=== PATIENT | female | born 1965 | race Caucasian/White ===

== ENCOUNTER → 2017-02-11 | Outpatient (CLI) | payer BC ==
--- NOTE | 2017-02-12 07:53 | MM ---
Reason for exam: follow-up at short interval from prior study. Last mammogram was performed 8 months ago. History: Patient is nulliparous. Family history of breast cancer in maternal aunt. Excisional biopsy of the right breast, September 20, 2007. Physical Findings: A clinical breast exam by your physician is recommended on an annual basis and results should be correlated with mammographic findings. MG 3D Diag Mammo W/Cad RT CC, MLO, ML, and spot compression MLO view(s) were taken of the right breast. Prior study comparison: June 04, 2016, bilateral MG 3d screening mammo w/cad. November 14, 2013, bilateral digital screening mammo w/CAD. The breast tissue is heterogeneously dense. This may lower the sensitivity of mammography. There is no discrete abnormality including area of concern. No significant new findings when compared with previous films. These results were verbally communicated with the patient and result sheet given to the patient on 02/11/17. ASSESSMENT: Benign, BI-RAD 2 RECOMMENDATION: Return to routine screening mammogram schedule for both breasts. Back on schedule.
== END | disposition home or self-care (01) ==
LOC: RADMAMWWP 14:54
PROVIDERS: ATTEND Family Medicine
DX: R92.8 Other abnormal and inconclusive findings on diagnostic imaging of breast (principal)
CPT/HCPCS: G0206; G0279

== ENCOUNTER 2017-11-26 09:59 | Day surgery (SDC) | payer BC ==
[2017-11-24 13:56] VITALS: BMI 38.9
[~2017-11-26 09:59] MED LIST: LACTATED RINGERS 1,000 ML IV ONE; LIDOCAINE 1% 20 ML VIAL (10MG/ML) FOR IV START INTRADERMA PRN
[2017-11-26 10:30] VITALS: RESP 16; TEMP 98.5
[2017-11-26] MEDS ORDERED: PROPOFOL 10 MG/ML 20 ML VIAL IV ONE (11:14)
--- NOTE | 2017-11-26 11:29 | P.PCN ---
Date of Procedure: 11/26/17 Procedure(s) Performed: BRIEF HISTORY: Patient is a 52-year-old pleasant white female, scheduled for an elective colonoscopy as a part of screening for colon cancer. She has family history of colon cancer diagnosed in her mother. Her last colonoscopy was 5 years ago that was normal. PROCEDURE PERFORMED: Colonoscopy. PREOPERATIVE DIAGNOSIS: Screening for colon cancer and family history of colon cancer. IV sedation per Anesthesia. PROCEDURE: After informed consent was obtained, the patient, was brought into the endoscopy unit. IV sedation was administered by Anesthesia under continuous monitoring. Digital rectal examination was normal. Initially the Olympus CF- 160 flexible video colonoscope was then inserted in the rectum, gradually advanced into the cecum without any difficulty. Careful examination was performed as the scope was gradually being withdrawn. Ileocecal valve and the appendiceal orifice were visualized and appeared normal. Prep was excellent. Mucosa of the cecum, ascending colon, transverse colon, descending colon, sigmoid colon, and rectum appeared normal. Retroflexion was performed in the rectum and no lesions were seen. Scattered sigmoidal reticular seen. The patient tolerated the procedure well. IMPRESSION: Normal-appearing colon from rectum to cecum with no evidence of colorectal neoplasia. Scattered sigmoidal diverticulosis. RECOMMENDATIONS: Findings of this examination were discussed with the patient as well as a family. She was advised to have a repeat screening colonoscopy in 5 years because of the family history of colon cancer.
[2017-11-26 11:54] VITALS: BP 119/70; PULSE 63
== END 2017-11-26 12:11 | disposition home or self-care (01) ==
LOC: ORWHC2ENDO 09:59
PROVIDERS: ATTEND Internal Medicine Gastroenterology
DX: Z12.11 Encounter for screening for malignant neoplasm of colon (principal); Z80.0 Family history of malignant neoplasm of digestive organs; K57.30 Diverticulosis of large intestine without perforation or abscess without bleeding; Z88.5 Allergy status to narcotic agent; Z88.8 Allergy status to other drugs, medicaments and biological substances; J44.9 Chronic obstructive pulmonary disease, unspecified; F39 Unspecified mood [affective] disorder; Z79.51 Long term (current) use of inhaled steroids; Z79.1 Long term (current) use of non-steroidal anti-inflammatories (NSAID); Z79.899 Other long term (current) drug therapy; Z87.891 Personal history of nicotine dependence; Z79.2 Long term (current) use of antibiotics
CPT/HCPCS: 45378; J2704

== ENCOUNTER → 2018-03-29 | Outpatient (CLI) | payer BC ==
[2018-03-29 09:27] VITALS: BP 139/82; PULSE 62; TEMP 97.1; BMI 37.5
--- NOTE | 2018-03-29 10:11 | P.HPOB ---
History of Present Illness H&P Date: 03/29/18 Chief Complaint: The patient is here for her routine gynecologic exam and mammogram. This is a 53-year-old G0 with an LMP of 2016. The patient is here to establish with this office. She is without gynecologic complaints. Her last pelvic exam was about 3 years ago. She denies any postmenopausal bleeding. Review of Systems Her weight has fluctuated over the past year. She had gained about 25 pounds after she was using steroids for her asthma. More recently she has lost about 18 pounds. She denies respiratory, cardiac, or G.I. problems. Past Medical History Past Medical History: Asthma Additional Past Medical History / Comment(s): MIGRAINES, OCCASIONAL SVT- STATES HX OF 2ND DEGREE HEART BLOCK WHEN HER BLOOD PRESSURE GOES LOW. , RECENT USE OF PREDNISONE FOR ASTHMA. 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 She has no history of STDs. History of Any Multi-Drug Resistant Organisms: None Reported Past Surgical History: Breast Surgery (To write breast biopsies.), Cholecystectomy, Heart Catheterization, Orthopedic Surgery (Left wrist), Tonsillectomy Additional Past Surgical History / Comment(s): LEFT OVARY & TUBE REMOVED 2000. Multiple laparoscopy is for endometriosis, HEART CATH (2013). Colonoscopy 2018 (). Past Anesthesia/Blood Transfusion Reactions: Postoperative Nausea & Vomiting ( PONV) Additional Past Anesthesia/Blood Transfusion Reaction / Comment(s): STATES NAUSEA WITH DILAUDID. STATES HX OF SVT AND 2ND DEGREE HEART BLOCK WHEN BP DROPS LOW. Past Psychological History: Anxiety, Depression Smoking Status: Former smoker (Quit 2012) Past Alcohol Use History: Rare Additional Past Alcohol Use History / Comment(s): QUIT SMOKING MARCH 2013. SMOKED 1-1 1/2 PPD FOR 25-30 YEARS. Past Drug Use History: None Reported Additional History: She is and is not seeing anybody at this time. 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 - Past Family History Mother Family Medical History: Cancer Additional Family Medical History / Comment(s): OF COLON RECTAL CANCER. 2 maternal aunts had breast cancer. Both grandmothers had an [place]. Father Family Medical History: Cancer, Congestive Heart Failure (CHF), COPD Additional Family Medical History / Comment(s): SKIN CANCER Brother(s) Family Medical History: Cancer Additional Family Medical History / Comment(s): TUMOR AROUND JUGULAR WITH METS. Another brother had an [place]. Medications and Allergies Home Medications Medication Instructions Recorded Confirmed Type Cetirizine HCl [Zyrtec] 10 mg PO DAILY 10/17/17 03/29/18 History FLUoxetine HCL [PROzac] 20 mg PO HS 10/17/17 03/29/18 History Fluticasone Nasal [place] [Flonase 1 - 2 spr EA NOSTRIL DAILY 10/17/17 03/29/18 History Nasal [place]] Magnesium Oxide [Mag-Ox] 500 mg PO DAILY 10/17/17 03/29/18 History Mometasone/Formoterol [Dulera 100 2 puff INHALATION BID 10/17/17 03/29/18 History Mcg/5 Mcg Inhaler] Montelukast Sodium [Singulair] 10 mg PO HS 10/17/17 03/29/18 History Triamterene-Hctz 37.5-25Mg 1 cap PO DAILY PRN 10/17/17 03/29/18 History [Dyazide 37.5-25 Capsule] Albuterol Sulfate [Proair Hfa] 1 - 2 puff INHALATION Q6HR PRN 11/24/17 03/29/18 History Ibuprofen [Motrin Ib] 400 mg PO DAILY PRN 11/24/17 03/29/18 History Minocycline [Minocin] 50 mg PO DAILY 11/24/17 03/29/18 History Allergies Allergy/AdvReac Type Severity Reaction Status Date / Time hydromorphone [From Dilaudid] Allergy Nausea & Verified 03/29/18 09:23 Vomiting loratadine [From Claritin] AdvReac Unknown Verified 03/29/18 09:23 Exam Vital Signs Temp Pulse BP 03/29/18 09:23 97.1 F L 62 139/82 Intake and Output 03/28/18 03/29/18 03/29/18 22:59 06:59 14:59 Other: Weight 108.862 kg Height 5'7", BMI 37.6. This is a well-developed well-nourished heavyset white female who is alert and oriented times 3 in no acute distress. HEENT: Within normal limits. NECK: Supple without mass or thyromegaly. CHEST AND LUNGS: Clear to auscultation. HEART: Regular rate and rhythm. BREASTS: Are without mass or discharge. AXILLARY EXAM: Negative for adenopathy. BACK: Negative for CVA tenderness. ABDOMEN: Soft, mildly obese, nontender, without palpable masses. PELVIC EXAM: Normal external genitalia with minimal atrophy. Cervix and vagina appear normal with minimal atrophy. There is no unusual discharge. There is no evidence of prolapse. The uterus is midposition, nongravid size and nontender. There are no palpable adnexal masses or tenderness. RECTAL EXAM: refused by the patient. EXTREMITIES: Nontender. IMPRESSION: 1. 53-year-old menopausal female with normal gynecologic exam. 2. History of chronic steroid use for asthma. 3. Strong family history of colorectal cancer in her mother. PLAN: 1. Pap Smear was performed. 2. Self breast awareness was discussed. 3. Screening mammogram will be done today. 4. Osteoporosis prevention was discussed. Bone density screening will be done today. She is at increased risk for osteoporosis because of her chronic steroid use for asthma. 5. She will return in one year.
--- NOTE | 2018-03-29 13:02 | BD ---
EXAMINATION TYPE: Axial Bone Density DATE OF EXAM: 03/29/2018 COMPARISON: 2006 CLINICAL HISTORY: chronic steroid use Height: 5'6 Weight: 242 FRAX RISK QUESTIONS: Glucocorticoids (More than 3mos): y (Ex: prednisone, prednisolone, methylprednisolone, dexamethasone, and hydrocortisone). Secondary Osteoporosis: RISK FACTORS HISTORY OF: Family History of Osteoporosis: y Diet low in dairy products/other sources of calcium: y Postmenopausal woman: MEDICATIONS: Prednisone or other steroids: y How Long: intermittently 3 weeks Additional Medications: asthma, Flonase, Prozac Additional History: EXAM MEASUREMENTS: Bone mineral densitometry was performed using the [employer] System. Bone mineral density as measured about the Lumbar spine is: ----- L1-L4(G/cm2): 1.305 T Score Values are as follows: ----- L2: 1.1 ----- L3: 1.8 ----- L4: 0.6 ----- L1-L4: 1.0 Bone mineral density about the R hip (g/cm2): 1.103 Bone mineral density about the L hip (g/cm2): 1.087 T Score values are as follows: -----R Neck: 0.5 -----L Neck: 0.4 -----R Total: 1.0 -----L Total: 1.0 IMPRESSION: Normal (Values between +1 and -1 indicate normal bone mass). Consider repeating this study in 5 year s or sooner if there is some new clinical indication. NOTE: T-SCORE=SD OF THE YOUNG ADULT MEAN.
--- NOTE | 2018-03-30 13:40 | MM ---
Reason for exam: screening (asymptomatic). Last mammogram was performed 1 year and 2 months ago. History: Patient is postmenopausal and is nulliparous. Family history of breast cancer in maternal aunt. Excisional biopsy of the right breast, September 20, 2007. Physical Findings: A clinical breast exam by your physician is recommended on an annual basis and results should be correlated with mammographic findings. MG 3D Screening Mammo W/Cad Bilateral CC and MLO view(s) were taken. Prior study comparison: February 11, 2017, right breast MG 3d diag mammo w/cad RT. June 04, 2016, bilateral MG 3d screening mammo w/cad. The breast tissue is heterogeneously dense. This may lower the sensitivity of mammography. Finding: There is a 24 mm lobulated mass in the slight inner quadrant, middle, central position of the left breast, CC 37/80 and MLO 49/85. New finding since February 11, 2017 and June 04, 2016. ASSESSMENT: Incomplete: need additional imaging evaluation, BI-RAD 0 RECOMMENDATION: Ultrasound of the left breast. [facility] will attempt to contact patient to return for ultrasound.
== END | disposition home or self-care (01) ==
LOC: WWCWWP 09:06
PROVIDERS: ATTEND Obstetrics & Gynecology
DX: Z12.31 Encounter for screening mammogram for malignant neoplasm of breast (principal); Z79.52 Long term (current) use of systemic steroids; Z78.0 Asymptomatic menopausal state; N95.1 Menopausal and female climacteric states
CPT/HCPCS: 77063; 77067; 77080

== ENCOUNTER → 2018-04-04 | Outpatient (CLI) | payer BC ==
--- NOTE | 2018-04-04 11:27 | USB ---
Reason for exam: additional evaluation requested from abnormal screening. History: Patient is postmenopausal and is nulliparous. Family history of breast cancer in maternal aunt. Excisional biopsy of the right breast, September 20, 2007. Physical Findings: Nurse did not find any significant physical abnormalities on exam. US Breast Workup Limited LT Right limited breast ultrasound including focal area of concern, retroareolar and axilla demonstrates a 1.6 x 0.6 x 1.6cm oval, cystic lesion at 10 o'clock. This likely corresponds to the mammographic finding but because it measures smaller than the area on mammogram and appears more centrally located on ultrasound, 6 month follow up mammogram recommended. These results were verbally communicated with the patient and result sheet given to the patient on 04/04/18. ASSESSMENT: Probably benign, BI-RAD 3 RECOMMENDATION: Follow-up diagnostic mammogram of the left breast in 6 months.
== END | disposition home or self-care (01) ==
LOC: RADUSWWP 10:27
PROVIDERS: ATTEND Obstetrics & Gynecology
DX: R92.8 Other abnormal and inconclusive findings on diagnostic imaging of breast (principal)

== ENCOUNTER → 2019-08-02 | Outpatient (CLI) | payer BC ==
--- NOTE | 2019-08-03 08:49 | CT ---
EXAMINATION TYPE: CT abdomen pelvis wo con DATE OF EXAM: 08/02/2019 HISTORY: Left flank pain radiating to left lower quadrant x [address] DLP: 1295.9 mGycm. Automated Exposure Control for Dose Reduction was Utilized. TECHNIQUE: CT scan of the abdomen and pelvis is performed without oral or IV contrast. COMPARISON: CT abdomen and pelvis January 08, 2013. FINDINGS: Within the limitations of a non-contrast study, the following observations are made. LUNG BASES: Persistent patchy bibasilar linear scarring and/or atelectasis. LIVER/GB: Cholecystectomy clips are redemonstrated. PANCREAS: No significant abnormality is seen. SPLEEN: There is splenule anterior splenic hilum axial image 40 redemonstrated. ADRENALS: No significant abnormality is seen. KIDNEYS: No renal calculi or hydronephrosis is seen bilaterally. BOWEL: Debris-filled stomach suggests recent meal ingestion. No suspicious small or large bowel dilat ation. Normal-appearing appendix from the cecum. Scattered diverticula throughout the transverse left and sigmoid colon. No CT evidence for acute diverticulitis. GENITAL ORGANS: Anteverted uterus. LYMPH NODES: No greater than 1cm abdominal or pelvic lymph nodes are appreciated. OSSEOUS STRUCTURES: Facet arthropathy lower lumbar levels. OTHER: No significant additional abnormality is seen. IMPRESSION: No renal stones or hydronephrosis is seen bilaterally. No bowel obstruction. Redemonstrat ion of colonic diverticula without convincing CT evidence for acute diverticulitis currently. No susp icious new or acute findings are evident.
== END | disposition home or self-care (01) ==
LOC: RADCTMAIN 15:50
PROVIDERS: ATTEND Family Medicine
DX: K57.30 Diverticulosis of large intestine without perforation or abscess without bleeding (principal)
CPT/HCPCS: 74176

== ENCOUNTER 2019-09-17 15:53 | Emergency (ER) | payer BC ==
--- NOTE | 2019-09-17 16:24 | ED ---
General Adult HPI - General Chief complaint: Upper Respiratory Infection Stated complaint: TIFFANY Time Seen by Provider: 09/17/19 15:58 Source: patient Mode of arrival: wheelchair Limitations: no limitations - History of Present Illness Initial comments: Patient presents the ED with her for evaluation. Patient states that she has had a productive cough and dyspnea for the past 2 days. Patient also admits to having chest and back pain, which she attributes to her coughing. Patient states that she was started on a course of azithromycin by her PCP 2 days ago, and she states that she was also provided with a prescription for an inhaler at that time. Patient also states that she has been using her nebulizer machine at home without much relief. Patient denies trauma or injury, fever or chills, headache, sore throat, neck/arm/jaw pain, hemoptysis, palpitations, dizziness, nausea/vomiting/diaphoresis, abdominal pain, urinary symptoms, leg or calf swelling or pain, or any other symptoms or complaints. - Related Data Home Medications Medication Instructions Recorded Confirmed Cetirizine HCl [Zyrtec] 10 mg PO DAILY 10/17/17 03/29/18 FLUoxetine HCL [PROzac] 20 mg PO HS 10/17/17 03/29/18 Fluticasone Nasal [place] [Flonase 1 - 2 spr EA NOSTRIL DAILY 10/17/17 03/29/18 Nasal [place]] Magnesium Oxide [Mag-Ox] 500 mg PO DAILY 10/17/17 03/29/18 Mometasone/Formoterol [Dulera 100 2 puff INHALATION BID 10/17/17 03/29/18 Mcg/5 Mcg Inhaler] Montelukast Sodium [Singulair] 10 mg PO HS 10/17/17 03/29/18 Triamterene-Hctz 37.5-25Mg 1 cap PO DAILY PRN 10/17/17 03/29/18 [Dyazide 37.5-25 Capsule] Albuterol Sulfate [Proair Hfa] 1 - 2 puff INHALATION Q6HR PRN 11/24/17 03/29/18 Ibuprofen [Motrin Ib] 400 mg PO DAILY PRN 11/24/17 03/29/18 Minocycline [Minocin] 50 mg PO DAILY 11/24/17 03/29/18 Previous Rx's Medication Instructions Recorded predniSONE 60 mg PO DAILY #5 tab 09/17/19 Allergies Allergy/AdvReac Type Severity Reaction Status Date / Time hydromorphone [From Dilaudid] Allergy Nausea & Verified 03/29/18 09:23 Vomiting loratadine [From Claritin] AdvReac Unknown Verified 03/29/18 09:23 Review of Systems ROS Statement: Those systems with pertinent positive or pertinent negative responses have been documented in the HPI. ROS Other: All systems not noted in ROS Statement are negative. Past Medical History Past Medical History: Asthma Additional Past Medical History / Comment(s): MIGRAINES, OCCASIONAL SVT- STATES HX OF 2ND DEGREE HEART BLOCK WHEN HER BLOOD PRESSURE GOES LOW, RECENT USE OF PREDNISONE FOR ASTHMA. 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 She has no history of STDs. History of Any Multi-Drug Resistant Organisms: None Reported Past Surgical History: Breast Surgery, Cholecystectomy, Heart Catheterization, Orthopedic Surgery, Tonsillectomy Additional Past Surgical History / Comment(s): LEFT OVARY & TUBE REMOVED 2000. Multiple laparoscopy is for endometriosis, HEART CATH (2013). Colonoscopy 2018 (2nd). Past Anesthesia/Blood Transfusion Reactions: Postoperative Nausea & Vomiting (PONV) Additional Past Anesthesia/Blood Transfusion Reaction / Comment(s): STATES NAUSEA WITH DILAUDID. STATES HX OF SVT AND 2ND DEGREE HEART BLOCK WHEN BP DROPS LOW. Past Psychological History: Anxiety, Depression Smoking Status: Former smoker Past Alcohol Use History: Rare Past Drug Use History: None Reported - Past Family History Mother Family Medical History: Cancer Additional Family Medical History / Comment(s): OF COLON RECTAL CANCER. 2 maternal aunts had breast cancer. Both grandmothers had an [place]. Father Family Medical History: Cancer, Congestive Heart Failure (CHF), COPD Additional Family Medical History / Comment(s): SKIN CANCER Brother(s) Family Medical History: Cancer Additional Family Medical History / Comment(s): TUMOR AROUND JUGULAR WITH METS. Another brother had an [place]. General Exam Limitations: no limitations General appearance: alert, in no apparent distress Head exam: Present: atraumatic, normocephalic Eye exam: Present: normal appearance, EOMI ENT exam: Present: normal oropharynx, mucous membranes moist Neck exam: Present: other (Trachea is in midline). Absent: tenderness, meningismus Respiratory exam: Present: normal lung sounds bilaterally, wheezes. Absent: respiratory distress, rales, rhonchi, stridor Cardiovascular Exam: Present: regular rate, normal rhythm, normal heart sounds, other (Normal radial pulses bilaterally) GI/Abdominal exam: Present: soft. Absent: tenderness, guarding Extremities exam: Present: other (Negative Jun's sign bilaterally). Absent: tenderness, pedal edema, calf tenderness Neurological exam: Present: alert, oriented X3, CN II-XII intact. Absent: motor sensory deficit Psychiatric exam: Present: normal affect, normal mood Skin exam: Present: warm, dry, intact, normal color Course Vital Signs 09/17/19 09/17/19 09/17/19 15:56 16:21 16:59 Temperature 100.7 F H Pulse Rate 89 75 Respiratory 24 20 Rate Blood Pressure 142/103 O2 Sat by Pulse 97 Oximetry 09/17/19 17:05 Temperature Pulse Rate 81 Respiratory Rate Blood Pressure O2 Sat by Pulse Oximetry - Reevaluation(s) Reevaluation #1: 09/17/19 18:39 Patient states that her dyspnea has improved with ED treatment, and she denies development of any new symptoms while in the ED. Patient's wheezing has improved on exam. Patient remains alert and breathing comfortably with a normal room air oxygen saturation. Patient and are aware of the patient's test results, and patient feels comfortable going home with her at this time. EKG Findings - EKG Comments: EKG Findings:: Normal sinus rhythm, ventricular rate of 87 bpm, no ectopy, normal VT and QRS intervals, normal QT interval, normal axis, no ST or T-wave abnormality, left anterior fascicular block Medical Decision Making - Medical Decision Making I suspect that the patient's symptoms are likely secondary to mild pneumonia and asthma exacerbation. Patient is currently on a course of azithromycin, which I feel is appropriate treatment for community acquired pneumonia. She was instructed to complete the course of azithromycin that she is currently taking as prescribed. Patient was also provided with a prescription for a short course of prednisone. Patient was instructed to continue using her nebulizer machine at home as needed/as prescribed. Patient was counseled about pneumonia and asthma, and she was clearly explained return and follow-up instructions. She was instructed to return to the ED should she develop new or worsening symptoms. She was instructed to follow up closely with her primary care provider. She feels comfortable with this plan. - Lab Data Lab Results 09/17/19 Range/Units 16:17 Influenza Type A RNA Not Detected (Not Detectd) Influenza Type B (PCR) Not Detected (Not Detectd) - Radiology Data Radiology results: image reviewed (Chest x-ray shows a subtle left lingular infiltrate) Disposition Clinical Impression: Pneumonia, Asthma Disposition: HOME SELF-CARE Condition: Stable Instructions (If sedation given, give patient instructions): Asthma (ED), Pneumonia (ED) Additional Instructions: Return to the ER immediately should you develop new or worsening pain, increased shortness of breath, a high fever, vomiting, feeling dizzy or faint, or new or worsening symptoms. Follow up closely with your primary care provider. Prescriptions: predniSONE 60 mg PO DAILY #5 tab Is patient prescribed a controlled substance at d/c from ED?: No Referrals: Brittany Nieves DO [Primary Care Provider] - 1-2 days Time of Disposition: 18:41
[2019-09-17] MEDS ORDERED: IPRATROPIUM-ALBUTEROL 3 ML NEB INHALATION STA (16:37)
[2019-09-17] MEDS ORDERED: predniSONE 20 MG TAB PO STA (16:37)
--- NOTE | 2019-09-17 17:02 | XR ---
EXAMINATION TYPE: XR chest 2V DATE OF EXAM: 09/17/2019 COMPARISON: 10/17/2017 INDICATION: Cough with right-sided chest pain TECHNIQUE: Frontal and lateral views of the chest are obtained. FINDINGS: The heart size is normal. The pulmonary vasculature is normal. There is consolidation at the lingula. Correlate for atelectasis and pneumonia.. IMPRESSION: 1. Lingular infiltrate. Correlate for atelectasis and pneumonia.
[2019-09-17] MEDS ORDERED: ACETAMINOPHEN TAB 325 MG TAB PO STA (17:21)
[2019-09-17 19:02] VITALS: BP 142/89; PULSE 86; RESP 18; TEMP 98.9
== END 2019-09-17 19:01 | disposition home or self-care (01) ==
LOC: EC 15:53
DX: J45.909 Unspecified asthma, uncomplicated (principal); J18.9 Pneumonia, unspecified organism; F32.9 Major depressive disorder, single episode, unspecified; F41.9 Anxiety disorder, unspecified; Z87.891 Personal history of nicotine dependence; Z88.5 Allergy status to narcotic agent; Z88.8 Allergy status to other drugs, medicaments and biological substances; Z79.51 Long term (current) use of inhaled steroids; Z79.899 Other long term (current) drug therapy; Z90.89 Acquired absence of other organs; Z82.5 Family history of asthma and other chronic lower respiratory diseases
CPT/HCPCS: 94640; 93005; 87502; 71046; 99285; J7512

== ENCOUNTER 2020-07-03 12:26 | Day surgery (SDC) | payer BC ==
[2020-07-03 13:09] VITALS: RESP 16; TEMP 98.2
[2020-07-03] MEDS ORDERED: ALPRAZolam 0.5 MG TAB PO STA (13:09)
[2020-07-03 14:31] VITALS: BP 120/72; PULSE 77
--- NOTE | 2020-07-03 15:17 | US ---
EXAMINATION TYPE: US FNA thyroid each add lesion, US FNA thyroid first lesion DATE OF EXAM: 07/03/2020 COMPARISON: Ultrasound thyroid from outside institution HISTORY: Thyroid nodules. Maximal barrier technique was utilized. After informed consent, skin overlying the right lower lobe dominant solid thyroid nodule was localized with ultrasound and the overlying skin prepped and draped . Ultrasound was utilized using sterile technique. Lidocaine was used for local anesthesia. Five pas ses with a 25-gauge needle were made into the nodule and aspirated specimen was submitted to cytology . Using similar technique the minute cystic lesion in the left lobe of thyroid gland sampled. Following the procedure hemostasis achieved. No immediate complication. The patient discharged in stable con dition. IMPRESSION: STATUS POST ULTRASOUND GUIDED FINE NEEDLE ASPIRATION OF 2 DISCRETE BILATERAL THYROID NODU LES, PATHOLOGY IS PENDING. THIS PROCEDURE WAS PERFORMED BY THE UNDERSIGNED.
== END 2020-07-03 14:44 | disposition home or self-care (01) ==
LOC: RADPROMAIN 12:26
PROVIDERS: ATTEND Otolaryngology
DX: E04.1 Nontoxic single thyroid nodule (principal); Z88.5 Allergy status to narcotic agent
CPT/HCPCS: 10005; 10006; 88173; 88305

== ENCOUNTER → 2020-07-03 | Outpatient (CLI) | payer BC ==
--- NOTE | 2020-07-03 15:57 | CT ---
EXAMINATION TYPE: CT soft tissue neck w con DATE OF EXAM: 07/03/2020 HISTORY: left side neck mass, known thyroid nodules. COMPARISON: NONE CT DLP: 530.1 mGycm. Automated Exposure Control for Dose Reduction was Utilized. TECHNIQUE: CT scan of the neck is performed with IV Contrast, patient injected with 100 mL of Isovue 300, axial images are obtained, coronal and sagittal reformatted images are reviewed. FINDINGS: Airway: Normal-sized thyroid with bilateral thyroid nodules. Ultrasound noted more sensitive to evalu ate the uterus, correlate clinically. Some retained secretions in the vallecula. Parotid/submandibular glands: Metallic BB noted near the level of left submandibular gland axial imag e 43. This appear symmetric and within normal limits. The right-sided gland. I see no concerning donna d or cystic mass or fluid collection at this level. There is tiny subcutaneous vessel coronal image 2 1 at this level presumed tiny draining external superficial vein. Carotid/Vascular Structures: No suspicious abnormality. Osseous Structures: Moderate disc space narrowing with endplate sclerosis and spurring C6-C7 level Other: No suspicious greater than 1 cm neck adenopathy. IMPRESSION: No suspicious mass or adenopathy.
== END | disposition home or self-care (01) ==
LOC: RADCTMAIN 12:21
PROVIDERS: ATTEND Otolaryngology
DX: E04.1 Nontoxic single thyroid nodule (principal); R22.1 Localized swelling, mass and lump, neck; Z88.5 Allergy status to narcotic agent
CPT/HCPCS: 70491; Q9967

== ENCOUNTER 2020-07-19 09:41 | Day surgery (SDC) | payer BC ==
[2020-07-18 12:14] VITALS: BMI 45.3
[2020-07-19 10:07] VITALS: RESP 16; TEMP 96
[2020-07-19] MEDS ORDERED: LACTATED RINGERS 1,000 ML IV ONE (10:16)
[2020-07-19] MEDS ORDERED: LIDOCAINE 1% (10MG/ML) FOR IV START INTRADERMA ONE (10:16)
[2020-07-19] MEDS ORDERED: LIDOCAINE 1% INJ 10MG/ML (20 ML MDV) ONE (10:40)
[2020-07-19] MEDS ORDERED: PROPOFOL 10 MG/ML 20 ML VIAL IV ONE (10:40)
--- NOTE | 2020-07-19 10:51 | P.PCN ---
Date of Procedure: 07/19/20 Procedure(s) Performed: BRIEF HISTORY: Patient is a 55-year-old, pleasant, 54-year-old white female scheduled for an upper endoscopy for evaluation of throat irritation and possible GERD.. PROCEDURE PERFORMED: Esophagogastroduodenoscopy with biopsy. PREOPERATIVE DIAGNOSIS: Throat irritation/positive. IV sedation per anesthesia. PROCEDURE: After informed consent was obtained, the patient was brought into the endoscopy unit. IV sedation was administered by Anesthesia under continuous monitoring. Initially the Olympus GIF-140 video endoscope was inserted into the mouth. Esophagus intubated without any difficulty. It was gradually advanced into the stomach and duodenum and carefully examined. The bulb and the second part of the duodenum appeared normal. The scope at this time was withdrawn to the stomach, adequately insufflated with air, and upon careful examination, mucosa of the antrum, had mild part of the mucosa consistent with gastritis and biopsies were done from this area. The body, cardia and the fundus appeared normal. The scope was then withdrawn into the esophagus. Small sliding type hiatal hernia noted. The GE junction was located at 39 cm from the incisors. There were linear erosions and one superficial ulceration at the GE junction consistent with LA grade C reflux esophagitis. Rest of esophagus appeared normal and the patient tolerated the procedure well. IMPRESSION: 1. Linear erosions and one superficial ulceration at the GE junction consistent with LA grade C reflux esophagitis. 2. Small hiatal hernia. 3. Mild antral gastritis RECOMMENDATIONS: The findings of this examination were discussed with the patient as well as a family. She was advised to follow with the biopsy results. She will continue with Prilosec 20 mg daily and follow antireflux measures..
[2020-07-19 11:47] VITALS: BP 138/78; PULSE 89
== END 2020-07-19 11:44 | disposition home or self-care (01) ==
LOC: ORWHC2ENDO 09:41
PROVIDERS: ATTEND Internal Medicine Gastroenterology
DX: K22.10 Ulcer of esophagus without bleeding (principal); K44.9 Diaphragmatic hernia without obstruction or gangrene; K29.50 Unspecified chronic gastritis without bleeding; I47.1 Supraventricular tachycardia; I45.9 Conduction disorder, unspecified; J45.909 Unspecified asthma, uncomplicated; E07.9 Disorder of thyroid, unspecified; Z88.5 Allergy status to narcotic agent; Z79.890 Hormone replacement therapy; Z79.899 Other long term (current) drug therapy; Z79.51 Long term (current) use of inhaled steroids
CPT/HCPCS: 88305; 43239; J2001; J2704

== ENCOUNTER → 2021-01-08 | Day surgery (SDC) | payer BC ==
[2021-01-07 13:20] VITALS: BMI 46.0
[~2021-01-08] MED LIST changes: +ALBUTEROL NEB (CONC) 2.5 MG/0.5 ML INHALATION ONE; -LIDOCAINE 1% 20 ML VIAL (10MG/ML) FOR IV START INTRADERMA PRN; +LIDOCAINE 1% INJ 10MG/ML (20 ML MDV) ONE; +LIDOCAINE 2% (PF) 20 MG/ML 5 ML VIAL INHALATION ONE; +LIDOCAINE VISCOUS 300 MG/15 ML CUP MUCOUS MEM ONE; +PROPOFOL 10 MG/ML 20 ML VIAL IV ONE; +SODIUM CHLORIDE 0.9% 1,000 ML IV SCH; +methylPREDNISolone SOD SUCCI 125 MG/2 ML VIAL IV ONE
[2021-01-08 12:09] VITALS: TEMP 97.8
[2021-01-08 12:38] LABS: ALT 17 U/L (4-34); AST 24 U/L (14-36); African American GFR (CKD) >90 (>60 ml/min/1.73 sqM); Albumin 4.1 g/dL (3.5-5.0); Alkaline Phosphatase 128 U/L (38-126); Anion Gap 8 mmol/L; Blood Urea Nitrogen 10 mg/dL (7-17); Calcium 9.6 mg/dL (8.4-10.2); Carbon Dioxide 24 mmol/L (22-30); Chloride 106 mmol/L (98-107); Glucose 94 mg/dL (74-99); Non-African American GFR(CKD) 84 (>60 ml/min/1.73 sqM); Potassium 4.5 mmol/L (3.5-5.1); Sodium 138 mmol/L (137-145); Total Bilirubin 0.3 mg/dL (0.2-1.3); Total Protein 7.1 g/dL (6.3-8.2)
[2021-01-08 12:41] LABS: WBC 6.5 k/uL (3.8-10.6)
[2021-01-08 12:42] LABS: Basophils # (A) 0.1 k/uL (0-0.2); Basophils % (A) 1 %; Eosinophils # (A) 0.2 k/uL (0-0.7); Eosinophils % (A) 4 %; HCT 44.3 % (34.0-46.0); HGB 14.1 gm/dL (11.4-16.0); Lymphocytes % (A) 30 %; MCH 27.1 pg (25.0-35.0); MCHC 31.8 g/dL (31.0-37.0); MCV 85.4 fL (80.0-100.0); Mean Platelet Volume 6.8; Monocytes # (A) 0.4 k/uL (0-1.0); Monocytes % (A) 6 %; Neutrophils # (A) 3.7 k/uL (1.3-7.7); Neutrophils % (A) 58 %; Platelet Count 385 k/uL (150-450); RDW 13.8 % (11.5-15.5)
--- NOTE | 2021-01-08 12:43 | P.PCN ---
Date of Procedure: 01/08/21 Preoperative Diagnosis: Dyspnea, wheezing (exhalation) Postoperative Diagnosis: 1 bronchomalacia 2 Diffuse mucosal inflammatory changes (bronchitis) 3 Normal upper airway examination and no evidence of anatomic obstruction Anesthesia: MAC Surgeon: Aaron Lawler Pathology: none sent Condition: other Disposition: same day Operative Findings: This procedure was done under total intravenous anesthesia. The patient was given IV propofol for sedation. After achieving adequate sedation, the flexible bronchoscope was introduced through the right nostril and was advanced into the upper airway. There was obvious dynamic obstruction of the upper airway consistent with possible obstructive sleep apnea. A chin lift was done and the airway was inspected. The posterior oropharynx, larynx, epiglottis, arytenoids and the vallecula was inspected. All of these upper airway structures were within normal limits. Vocal cords were symmetrical and in the midline and there was normal abduction and adduction. A total of 2 mL of 1% lidocaine was applied to the vocal cords and following that the bronchoscope was advanced into the upper trachea. Subglottic trachea was normal. Cricoid cartilage was normal. No evidence of any subglottic stenosis. Airway examination was done and inspection of the trachea was completed and the membranous trachea was dynamic. Nevertheless, it was not causing significant obstruction of the tracheal lumen with exhalation and coughing. Evidence of bronchomalacia was seen in the bilateral mainstem bronchi and the bronchus intermedius on the right. Examination of the right-sided lower right upper lobe bronchus, bronchus intermedius, right middle lobe bronchus and right lower lobe bronchus and the various segments and subsegments. The examination of the right upper lobe including the right upper lobe and right middle lobe and right lower lobe and the various 10 segments involved in the right lung. Then the bronchoscope was moved to the left and left mainstem bronchus was patent, left upper lobe bronchus was normal at lower lobe bronchus was normal. The various segments that were inspected were left upper lobe apical posterior and anterior segments, lingular segment and left lower lobe segments. All of these airways were patent and within normal limits. No major abnormalities was identified other than some bronchomalacia in addition to some mucosal irregularities and inflammatory changes consistent with bronchitis. No endobronchial tumors. No significant mucous inspissation or clubbing. Therapeutic airway suctioning. The bronchoscope was wedged into the lateral segment of the right middle lobe and the bronchioloalveolar lavage was done with a total of 100 mL of fluid was infused and 35 mL was suctioned back. After that was cloudy and foamy. After completing the bronchioloalveolar lavage, the bronchoscope was removed and the patient was transferred to recovery in stable condition Postoperative diagnosis: 1 bronchial asthma 2 upper airway wheeze (exhalational) without evidence of abnormalities within the vocal cords and the subglottic trachea. Trachea was patent. No evidence of tracheal bronchomalacia. Mild component of bronchomalacia. 3 diffuse mucosal inflammatory changes consistent with bronchitis, consider infectious bronchitis. Bronchioloalveolar lavage was done.
[2021-01-08 12:55] LABS: T4, Free (Free Thyroxine) 1.13 ng/dL (0.78-2.19)
[2021-01-08 13:18] VITALS: BP 113/77; PULSE 93; RESP 20
[2021-01-08 13:22] LABS: Cholesterol 205 mg/dL (<200); HDL Cholesterol 54 mg/dL (40-60); LDL Cholesterol,Calculated 127 mg/dL (0-99); Triglycerides 120 mg/dL (<150)
[2021-01-08 21:36] LABS: Hemoglobin A1C 5.1 % (4.0-6.0)
== END | disposition home or self-care (01) ==
LOC: ORWHC2ENDO 11:28
PROVIDERS: ATTEND Internal Medicine Critical Care Medicine
DX: J45.40 Moderate persistent asthma, uncomplicated (principal); J98.09 Other diseases of bronchus, not elsewhere classified; J45.909 Unspecified asthma, uncomplicated; R06.2 Wheezing; E66.01 Morbid (severe) obesity due to excess calories; Z68.42 Body mass index [BMI] 45.0-49.9, adult; G47.10 Hypersomnia, unspecified; E04.1 Nontoxic single thyroid nodule; Z88.5 Allergy status to narcotic agent; Z79.51 Long term (current) use of inhaled steroids; Z79.899 Other long term (current) drug therapy; Z87.01 Personal history of pneumonia (recurrent); F32.9 Major depressive disorder, single episode, unspecified; Z87.19 Personal history of other diseases of the digestive system; Z80.0 Family history of malignant neoplasm of digestive organs; Z80.8 Family history of malignant neoplasm of other organs or systems; Z83.6 Family history of other diseases of the respiratory system; Z82.49 Family history of ischemic heart disease and other diseases of the circulatory system; Z87.891 Personal history of nicotine dependence; Z90.49 Acquired absence of other specified parts of digestive tract; Z98.890 Other specified postprocedural states; Z91.09 Other allergy status, other than to drugs and biological substances; E07.9 Disorder of thyroid, unspecified
CPT/HCPCS: 84439; 80061; 80053; 84443; 85025; 87252; 87070; 87205; 87116; 87102; 87206; 83036; 31624; J2930; J2001; J2704

== ENCOUNTER 2021-05-05 13:52 | Emergency (ER) | payer BC ==
[2021-05-05 14:28] VITALS: TEMP 98.4
[2021-05-05] MEDS ORDERED: MAGNESIUM SULFATE-D5W PMX 1 GM in DEXTROSE/WATER 1 100ML.BAG IVPB STA (16:53)
[2021-05-05] MEDS ORDERED: ALBUTEROL NEBULIZED 2.5 MG/3 ML INHALATION STA (16:53)
[2021-05-05] MEDS ORDERED: IPRATROPIUM-ALBUTEROL 3 ML NEB INHALATION STA (16:53)
[2021-05-05] MEDS ORDERED: methylPREDNISolone SOD SUCCI 125 MG/2 ML VIAL IV STA (16:55)
--- NOTE | 2021-05-05 17:22 | ED ---
SOB HPI - General Chief Complaint: Shortness of Breath Stated Complaint: SOB Source: patient Mode of arrival: ambulatory Limitations: no limitations - History of Present Illness Initial Comments: Patient is a 56-year-old female with past medical history of asthma, reflux, thyroid disorder who presents to the emergency department for failed outpatient treatment of pneumonia. Patient states that she has been seeing her primary care physician for some shortness of breath. She was placed on Decadron 6 mg daily and Augmentin. She finished the Decadron yesterday and Augmentin on Wednesday. States she has had no improvement in her short of breath and therefore saw her doctor today. They completed a chest x-ray which showed a right lower lobe pneumonia. They recommended that she come into the emergency department for further treatment. She has been giving her breathing treatments as directed. She states that she had a fever however her last fever was on Wednesday. She has not taken anything for fever control in the past several days. She denies any chest pain. No history of coronary disease. Patient does not wear oxygen at home. Sees Dr. Roy from pulmonology. She denies any abdominal pain. No nausea or vomiting. She did have a negative Covid test last week. She is vaccinated. No other alleviating, precipitating or modifying factors - Related Data Home Medications Medication Instructions Recorded Confirmed Cetirizine HCl [Zyrtec] 10 mg PO DAILY 10/17/17 05/05/21 FLUoxetine HCL [PROzac] 20 mg PO HS 10/17/17 05/05/21 Albuterol Sulfate [Proair Hfa] 2 puff INHALATION RT-Q6H PRN 11/24/17 05/05/21 Levothyroxine Sodium [Synthroid] 75 mcg PO DAILY 06/19/20 05/05/21 Budesonide/Formoterol Fumarate 2 puff INHALATION RT-BID 01/07/21 05/05/21 [Symbicort 160-4.5 Mcg Inhaler] Montelukast Sodium [Singulair] 10 mg PO HS 01/07/21 05/05/21 Fluticasone Nasal [place] [Flonase 2 spr EA NOSTRIL DAILY 05/05/21 05/05/21 Nasal [place]] Omeprazole 20 mg PO HS 05/05/21 05/05/21 Sea-Kelp 1 tab PO DAILY 05/05/21 05/05/21 Triamterene/Hydrochlorothiazid 1 cap PO DAILY PRN 05/05/21 05/05/21 [Dyazide 37.5-25 Capsule] Previous Rx's Medication Instructions Recorded Levofloxacin [Levaquin] 750 mg PO DAILY 1 Days #5 tab 05/05/21 predniSONE [Deltasone] 20 mg PO BID #10 tab 05/05/21 Allergies Allergy/AdvReac Type Severity Reaction Status Date / Time hydromorphone [From Dilaudid] Allergy Severe Verified 05/05/21 18:38 Vomiting adhesive tape AdvReac Itching, Verified 05/05/21 18:38 RED SKIN Review of Systems ROS Statement: Those systems with pertinent positive or pertinent negative responses have been documented in the HPI. ROS Other: All systems not noted in ROS Statement are negative. Past Medical History Past Medical History: Asthma, GERD/Reflux, Pneumonia, Thyroid Disorder Additional Past Medical History / Comment(s): states has had "choking feeling" recent diagnosed with benign thyroid nodules, NECK PAIN recent diagnosis of disintegrated T-1 with lesions, MIGRAINES, OCCASIONAL SVT- STATES HX OF 2ND DEGREE HEART BLOCK WHEN HER BLOOD PRESSURE GOES LOW. SHORTNESS OF BREATH WITH EXERTION , HIATAL HERNIA History of Any Multi-Drug Resistant Organisms: None Reported Past Surgical History: Breast Surgery, Cholecystectomy, Heart Catheterization, Orthopedic Surgery, Tonsillectomy Additional Past Surgical History / Comment(s): thyroid nodule bx, LEFT OVARY & TUBE REMOVED 2000. Multiple laparoscopy is for endometriosis, HEART CATH (2013). Colonoscopy . Left lower arm bone reduction surgery Past Anesthesia/Blood Transfusion Reactions: Previous Problems w/ Anesthesia Additional Past Anesthesia/Blood Transfusion Reaction / Comment(s): STATES severe vomiting WITH DILAUDID. STATES HX OF SVT AND 2ND DEGREE HEART BLOCK WHEN BP DROPS LOW. Past Psychological History: Depression Smoking Status: Former smoker Past Alcohol Use History: Rare Past Drug Use History: None Reported - Past Family History Mother Family Medical History: Cancer Additional Family Medical History / Comment(s): OF COLON RECTAL CANCER. 2 maternal aunts had breast cancer. Both grandmothers had an OR. Father Family Medical History: Cancer, Congestive Heart Failure (CHF), COPD Additional Family Medical History / Comment(s): SKIN CANCER Brother(s) Family Medical History: Cancer Additional Family Medical History / Comment(s): TUMOR AROUND JUGULAR WITH METS. Another brother had an OR. General Exam Limitations: no limitations General appearance: alert, in no apparent distress Head exam: Present: atraumatic, normocephalic, normal inspection Eye exam: Present: normal appearance, PERRL, EOMI. Absent: scleral icterus, conjunctival injection, periorbital swelling ENT exam: Present: normal exam, mucous membranes moist Neck exam: Present: normal inspection. Absent: tenderness, meningismus, lymphadenopathy Respiratory exam: Present: normal lung sounds bilaterally, other (tachpynia. upper airway stridor). Absent: respiratory distress, wheezes, rales, rhonchi, stridor Cardiovascular Exam: Present: regular rate, normal rhythm, normal heart sounds. Absent: systolic murmur, diastolic murmur, rubs, gallop, clicks GI/Abdominal exam: Present: soft, normal bowel sounds. Absent: distended, tenderness, guarding, rebound, rigid Extremities exam: Present: normal inspection, full ROM, normal capillary refill. Absent: tenderness, pedal edema, joint swelling, calf tenderness Back exam: Present: normal inspection Neurological exam: Present: alert, oriented X3, CN II-XII intact Psychiatric exam: Present: normal affect, normal mood Skin exam: Present: warm, dry, intact, normal color. Absent: rash Course Vital Signs 05/05/21 05/05/21 05/05/21 14:26 16:38 16:50 Temperature 98.4 F Pulse Rate 65 89 Respiratory 18 Rate Blood Pressure 141/94 O2 Sat by Pulse 97 79 L 99 Oximetry 05/05/21 05/05/21 05/05/21 16:57 19:19 19:32 Temperature Pulse Rate 88 66 68 Respiratory Rate Blood Pressure O2 Sat by Pulse 100 Oximetry 05/05/21 05/05/21 19:50 20:21 Temperature Pulse Rate 78 80 Respiratory 20 Rate Blood Pressure 151/81 O2 Sat by Pulse 94 L Oximetry Medical Decision Making - Medical Decision Making Upon arrival the patient is placed into room 33. She does have desaturation down to 79% with increased work of breathing upon entering the room. She is placed on a nonrebreather. When I see the patient she does have oxygen saturations of 100%. She does have some upper airway stridor however lungs maxx nd clear. We did obtain an IV. Laboratory studies are conducted. Patient was given a DuoNeb breathing treatment followed by an additional albuterol treatment. 1 g of magnesium was infused and the patient was given 125 mg Solu- Medrol. Laboratories studies are reviewed demonstrate a white blood cell count 17.4. Remainder of labs are within normal limits. Chest x-ray demonstrates no acute process at the time. I discussed results with the patient. I did recommend admission for hypoxia however the patient refused. She is saturating 96% and is comfortable at this time. Patient is requesting to go home and follow up with Dr. Roy in office. She is given strict return parameters. I will place her on 20 mg of prednisone twice daily. I will give her a prescription for Levaquin which she is to take if she has a fever however hold off otherwise at this time. Patient agreed to this treatment plan. States that she does have enough albuterol at home for treatments every 4 hours. Return to the emergency department for any new or worsening symptoms. Patient was discharged home in stable condition - Lab Data Result diagrams: 05/05/21 17:28 05/05/21 17:28 Lab Results 05/05/21 05/05/21 05/05/21 Range/Units 17:28 17:28 17:28 WBC 17.4 H (3.8-10.6) k/uL RBC 5.39 (3.80-5.40) m/uL Hgb 15.6 (11.4-16.0) gm/dL Hct 47.3 H (34.0-46.0) % MCV 87.7 (80.0-100.0) fL MCH 28.9 (25.0-35.0) pg MCHC 33.0 (31.0-37.0) g/dL RDW 14.1 (11.5-15.5) % Plt Count 456 H (150-450) k/uL MPV 7.1 Neutrophils % (Manual) 67 % Lymphocytes % (Manual) 28 % Monocytes % (Manual) 5 % Neutrophils # (Manual) 11.66 H (1.3-7.7) k/uL Lymphocytes # (Manual) 4.87 H (1.0-4.8) k/uL Monocytes # (Manual) 0.87 (0-1.0) k/uL Nucleated RBCs 0 (0-0) /100 WBC Manual Slide Review Performed PT 9.7 (9.0-12.0) sec INR 0.9 (<1.2) APTT 22.5 (22.0-30.0) sec Sodium 135 L (137-145) mmol/L Potassium 3.8 (3.5-5.1) mmol/L Chloride 103 (98-107) mmol/L Carbon Dioxide 22 (22-30) mmol/L Anion Gap 10 mmol/L BUN 21 H (7-17) mg/dL Creatinine 0.91 (0.52-1.04) mg/dL Est GFR (CKD-EPI)AfAm 83 (>60 ml/min/1.73 sqM) Est GFR (CKD-EPI)NonAf 72 (>60 ml/min/1.73 sqM) Glucose 100 H (74-99) mg/dL Plasma Lactic Acid Eddie (0.7-2.0) mmol/L Calcium 9.2 (8.4-10.2) mg/dL Total Bilirubin 0.2 (0.2-1.3) mg/dL AST 23 (14-36) U/L ALT 20 (4-34) U/L Alkaline Phosphatase 126 (38-126) U/L Troponin I (0.000-0.034) ng/mL NT-Pro-B Natriuret Pep pg/mL Total Protein 7.2 (6.3-8.2) g/dL Albumin 4.2 (3.5-5.0) g/dL 05/05/21 05/05/21 05/05/21 Range/Units 17:28 17:28 17:28 WBC (3.8-10.6) k/uL RBC (3.80-5.40) m/uL Hgb (11.4-16.0) gm/dL Hct (34.0-46.0) % MCV (80.0-100.0) fL MCH (25.0-35.0) pg MCHC (31.0-37.0) g/dL RDW (11.5-15.5) % Plt Count (150-450) k/uL MPV Neutrophils % (Manual) % Lymphocytes % (Manual) % Monocytes % (Manual) % Neutrophils # (Manual) (1.3-7.7) k/uL Lymphocytes # (Manual) (1.0-4.8) k/uL Monocytes # (Manual) (0-1.0) k/uL Nucleated RBCs (0-0) /100 WBC Manual Slide Review PT (9.0-12.0) sec INR (<1.2) APTT (22.0-30.0) sec Sodium (137-145) mmol/L Potassium (3.5-5.1) mmol/L Chloride (98-107) mmol/L Carbon Dioxide (22-30) mmol/L Anion Gap mmol/L BUN (7-17) mg/dL Creatinine (0.52-1.04) mg/dL Est GFR (CKD-EPI)AfAm (>60 ml/min/1.73 sqM) Est GFR (CKD-EPI)NonAf (>60 ml/min/1.73 sqM) Glucose (74-99) mg/dL Plasma Lactic Acid Eddie 1.0 (0.7-2.0) mmol/L Calcium (8.4-10.2) mg/dL Total Bilirubin (0.2-1.3) mg/dL AST (14-36) U/L ALT (4-34) U/L Alkaline Phosphatase (38-126) U/L Troponin I <0.012 (0.000-0.034) ng/mL NT-Pro-B Natriuret Pep 69 pg/mL Total Protein (6.3-8.2) g/dL Albumin (3.5-5.0) g/dL Disposition Clinical Impression: Acute bronchospasm, Acute asthma exacerbation Disposition: HOME SELF-CARE Condition: Stable Instructions (If sedation given, give patient instructions): Asthma (ED) Additional Instructions: Please use your breathing treatments every 4 hours. Take the steroids as directed. Only take the Levaquin if you develop a fever. Return to the ED for any new or worsening symptoms. Prescriptions: predniSONE [Deltasone] 20 mg PO BID #10 tab Levofloxacin [Levaquin] 750 mg PO DAILY 1 Days #5 tab Is patient prescribed a controlled substance at d/c from ED?: No Referrals: Nehemiah Fuller MD [Primary Care Provider] - 1-2 days Time of Disposition: 19:21
[2021-05-05 17:48] LABS: HCT 47.3 % (34.0-46.0); HGB 15.6 gm/dL (11.4-16.0); MCH 28.9 pg (25.0-35.0); MCV 87.7 fL (80.0-100.0); Mean Platelet Volume 7.1; Platelet Count 456 k/uL (150-450); RBC 5.39 m/uL (3.80-5.40); RDW 14.1 % (11.5-15.5); WBC 17.4 k/uL (3.8-10.6)
[2021-05-05 17:58] LABS: INR 0.9 (<1.2); Partial Thromboplastin Time 22.5 sec (22.0-30.0); Prothrombin Time 9.7 sec (9.0-12.0)
[2021-05-05 17:59] LABS: Albumin 4.2 g/dL (3.5-5.0); Calcium 9.2 mg/dL (8.4-10.2); Potassium 3.8 mmol/L (3.5-5.1); Total Bilirubin 0.2 mg/dL (0.2-1.3); Total Protein 7.2 g/dL (6.3-8.2)
[2021-05-05 18:48] LABS: Lymphocytes # (M) 4.87 k/uL (1.0-4.8); Monocytes # (M) 0.87 k/uL (0-1.0); Neutrophils # (M) 11.66 k/uL (1.3-7.7); Neutrophils % (M) 67 %; Nucleated Red Blood Cells 0 /100 WBC (0-0); Total Cells Counted 100
--- NOTE | 2021-05-05 18:48 | XR ---
EXAMINATION TYPE: XR chest 2V DATE OF EXAM: 05/05/2021 COMPARISON: 06/13/2020 HISTORY: Difficulty breathing TECHNIQUE: 2 views FINDINGS: Heart is normal. Lungs are clear of infiltrate. There is no heart failure. There are no hil ar masses. There are chest leads. IMPRESSION: No active cardiopulmonary disease. Normal heart. No change.
[2021-05-05 20:22] VITALS: BP 151/81; PULSE 80; RESP 20
== END 2021-05-05 20:22 | disposition home or self-care (01) ==
LOC: EC 13:52
DX: J45.901 Unspecified asthma with (acute) exacerbation (principal); E07.9 Disorder of thyroid, unspecified; K21.9 Gastro-esophageal reflux disease without esophagitis; Z79.51 Long term (current) use of inhaled steroids; Z79.899 Other long term (current) drug therapy; Z87.891 Personal history of nicotine dependence; Z88.5 Allergy status to narcotic agent; Z91.09 Other allergy status, other than to drugs and biological substances; Z79.890 Hormone replacement therapy
CPT/HCPCS: 36415; 94644; 83880; 80053; 83605; 84484; 85025; 85610; 85730; 71046; 99285; 96365; 96375; J2930; J3475

== ENCOUNTER → 2021-08-18 | Outpatient (CLI) | payer BC, OTHER | END | disposition home or self-care (01) | LOC: LABWHC1 14:52 | PROVIDERS: ATTEND Emergency Medicine | DX: Z20.822 Contact with and (suspected) exposure to COVID-19 (principal) | CPT/HCPCS: 87635 ==

== ENCOUNTER → 2022-02-03 | Outpatient (CLI) | payer MEDICAID ==
--- NOTE | 2022-02-06 09:31 | MM ---
Reason for Exam: Screening (asymptomatic). Last mammogram was performed 3 year(s) and 10 month(s) ago. Patient History: Menarche at age 14. Patient has no children. Left ovary removed at age 38. Postmenopausal. 09/20/2007, Excisional Biopsy on the Right side. Maternal aunt had breast cancer. Risk Values: Lily 5 year model risk: 1.5%. NCI Lifetime model risk: 10.8%. Film Views: Bilateral CC views were taken. Bilateral MLO views were taken. Bilateral XCCL views were taken. Prior Study Comparison: 06/04/2016 Bilateral Screening Mammogram, [facility]. 02/11/2017 Right Diagnostic Mammogram, [facility]. 03/29/2018 Bilateral Screening Mammogram, [facility]. Tissue Density: There are scattered fibroglandular densities. Findings: Analyzed By CAD. There is no suspicious group of microcalcifications or new suspicious mass in either breast. Overall Assessment: Benign, BI-RAD 2 Management: Screening Mammogram of both breasts in 1 year. A clinical breast exam by your physician is recommended on an annual basis and results should be correlated with mammographic findings. Electronically signed and approved by: Ravindra Mix M.D. Radiologis
== END | disposition home or self-care (01) ==
LOC: RADMAMWWP 15:40
PROVIDERS: ATTEND Family Medicine
DX: Z12.31 Encounter for screening mammogram for malignant neoplasm of breast (principal); Z78.0 Asymptomatic menopausal state; Z80.3 Family history of malignant neoplasm of breast; Z90.721 Acquired absence of ovaries, unilateral
CPT/HCPCS: 77063; 77067

== ENCOUNTER → 2023-02-24 | Outpatient (CLI) | payer MEDICAID ==
--- NOTE | 2023-02-24 16:13 | US ---
EXAMINATION TYPE: US thyroid st tissue head/neck DATE OF EXAM: 02/24/2023 COMPARISON: US 02/02/22 CLINICAL INDICATION: Female, 57 years old with history of E04.1 NONTOXIC SINGLE THYROID NODULE; Hx FN A, nodule, patient is on levothyroxine. GLAND SIZE: Right Lobe: 6.5 x 2.7 x 2.3 cm Overall Parenchyma: homogenous Left Lobe: 5.2 x 2.4 x 1.9 cm Overall Parenchyma: homogeneous Isthmus Thickness: 0.32 cm NODULES RIGHT: # of nodules measured on right: 2 1. 1.9 X 1.6 x 0.8 cm, mid mid, mixed cystic and solid, hypoechoic nodule, which is wider than tall , with lobulated or irregular margins, with echogenic foci. TR 5. Prior size: 1.4 x 0.6 x 1.0 cm 2. 1.1 X 1.0 x 0.5 cm, upper mid, mixed cystic and solid, hypoechoic nodule, which is wider than ta ll, with smooth margins, without echogenic foci. Prior size: 0.8 x 0.5 x 0.7 cm LEFT: # of nodules measured on left: 1 1. 0.6 X 0.8 x 0.7 cm, mid mid, mixed cystic and solid, hypoechoic nodule, which is wider than tall , with lobulated or irregular margins, without echogenic foci. Prior size: 0.7 x 0.6 x 0.5 cm ISTHMUS: # of nodules measured in the isthmus: 0 Bilateral neck scanned, no evidence of lymphadenopathy. IMPRESSION: Highly suspicious hypoechoic nodule with peripheral echogenic foci which may be calcification. Fine-n eedle aspiration recommended. 2017 ACR TI-RADS LEVEL: TI-RADS 5 - Highly Suspicious: Follow if > 0.5 cm, FNA if > 1.0 cm *Highest TI-RADS level nodule reported
--- NOTE | 2023-02-24 16:15 | US ---
EXAMINATION TYPE: US transvaginal DATE OF EXAM: 02/24/2023 COMPARISON: US 02/02/22 CLINICAL INDICATION: Female, 57 years old with history of N95.0 POSTMENOPAUSAL BLEEDING; Patient had postmenopausal bleeding last year and now has been on progesterone x 1 year. G0. Hx of left ovary rem talia. TECHNIQUE: Transvaginal (TV). Date of LMP: December 2015 EXAM MEASUREMENTS: Uterus: 6.7 x 2.4 x 3.7 cm Endometrial Stripe: 0.81 cm Right Ovary: 2.7 x 1.9 x 2.1 cm Left Ovary: Surgically absent 1. Uterus: Anteverted 2. Endometrium: 0.81 cm - patient has been on progesterone x 1 year. *Anechoic area seen within mid endo: 0.9 x 0.6 x 0.3 cm 3. Right Ovary: Appears wnl 4. Left Ovary: Surgically absent 5. Bilateral Adnexa: Appears wnl 6. Posterior cul-de-sac: Appears wnl IMPRESSION: 1. Visualized pelvic ultrasound is unremarkable
== END | disposition home or self-care (01) ==
LOC: RADUSWWP 08:02
PROVIDERS: ATTEND Family Medicine
DX: E04.1 Nontoxic single thyroid nodule (principal); N95.0 Postmenopausal bleeding
CPT/HCPCS: 76536; 76830

== ENCOUNTER 2023-03-06 13:07 | Observation (INO) | payer MEDICAID ==
--- NOTE | 2023-03-06 13:28 | ED ---
General Adult HPI - General Chief complaint: Chest Pain Stated complaint: Chest Pressure Time Seen by Provider: 03/06/23 13:21 Source: patient Mode of arrival: wheelchair Limitations: no limitations - History of Present Illness Initial comments: Patient presents to the ED with her kyler for evaluation. Patient states that she has had central chest pain, which she describes as "pressure", for the past hour or so. Patient states that she had intermittent, sharp, shooting left- sided chest pain last night, but her pain today is distinctly different. Patient states that her chest pain radiates to the left side of her jaw. Patient states that she did take 4 baby aspirins prior to coming to the ED this afternoon. Patient denies trauma or injury, fever or chills, headache, focal numbness/weakness/neuro deficit, arm pain, back pain, pleuritic pain, dyspnea, cough or cold symptoms, palpitations, dizziness, nausea/vomiting/diaphoresis, diarrhea, bloody or melanotic stool, dysuria or urinary symptoms, decreased urine output, leg or calf swelling or pain, or any other symptoms or complaints. Patient's CAD risk factors include being overweight, smoking, hyperlipidemia and family history. - Related Data Home Medications Medication Instructions Recorded Confirmed Cetirizine HCl [Zyrtec] 10 mg PO DAILY 10/17/17 05/05/21 FLUoxetine HCL [PROzac] 20 mg PO HS 10/17/17 05/05/21 Albuterol Sulfate [Proair Hfa] 2 puff INHALATION RT-Q6H PRN 11/24/17 05/05/21 Levothyroxine Sodium [Synthroid] 75 mcg PO DAILY 06/19/20 05/05/21 Budesonide/Formoterol Fumarate 2 puff INHALATION RT-BID 01/07/21 05/05/21 [Symbicort 160-4.5 Mcg Inhaler] Montelukast Sodium [Singulair] 10 mg PO HS 01/07/21 05/05/21 Fluticasone Nasal [place] [Flonase 2 spr EA NOSTRIL DAILY 05/05/21 05/05/21 Nasal [place]] Omeprazole 20 mg PO HS 05/05/21 05/05/21 Sea-Kelp 1 tab PO DAILY 05/05/21 05/05/21 Triamterene/Hydrochlorothiazid 1 cap PO DAILY PRN 05/05/21 05/05/21 [Dyazide 37.5-25 Capsule] Previous Rx's Medication Instructions Recorded Levofloxacin [Levaquin] 750 mg PO DAILY 1 Days #5 tab 05/05/21 predniSONE [Deltasone] 20 mg PO BID #10 tab 05/05/21 Allergies Allergy/AdvReac Type Severity Reaction Status Date / Time hydromorphone [From Dilaudid] Allergy Severe Verified 03/06/23 13:19 Vomiting adhesive tape AdvReac Itching, Verified 03/06/23 13:19 RED SKIN Review of Systems ROS Statement: Those systems with pertinent positive or pertinent negative responses have been documented in the HPI. ROS Other: All systems not noted in ROS Statement are negative. Past Medical History Past Medical History: Asthma, GERD/Reflux, Hyperlipidemia, Pneumonia, Thyroid Disorder Additional Past Medical History / Comment(s): states has had "choking feeling" recent diagnosed with benign thyroid nodules, NECK PAIN recent diagnosis of disintegrated T-1 with lesions, MIGRAINES, OCCASIONAL SVT- STATES HX OF 2ND DEGREE HEART BLOCK WHEN HER BLOOD PRESSURE GOES LOW. SHORTNESS OF BREATH WITH EXERTION , HIATAL HERNIA History of Any Multi-Drug Resistant Organisms: None Reported Past Surgical History: Breast Surgery, Cholecystectomy, Heart Catheterization, Orthopedic Surgery, Tonsillectomy Additional Past Surgical History / Comment(s): thyroid nodule bx, LEFT OVARY & TUBE REMOVED 2000. Multiple laparoscopy is for endometriosis, HEART CATH (2013). Colonoscopy . Left lower arm bone reduction surgery Past Anesthesia/Blood Transfusion Reactions: Previous Problems w/ Anesthesia Additional Past Anesthesia/Blood Transfusion Reaction / Comment(s): STATES severe vomiting WITH DILAUDID. STATES HX OF SVT AND 2ND DEGREE HEART BLOCK WHEN BP DROPS LOW. Past Psychological History: Depression Smoking Status: Current every day smoker Past Alcohol Use History: Rare Past Drug Use History: None Reported - Past Family History Mother Family Medical History: Cancer Additional Family Medical History / Comment(s): OF COLON RECTAL CANCER. 2 maternal aunts had breast cancer. Both grandmothers had an IA. Father Family Medical History: Cancer, Congestive Heart Failure (CHF), COPD Additional Family Medical History / Comment(s): SKIN CANCER Brother(s) Family Medical History: Cancer Additional Family Medical History / Comment(s): TUMOR AROUND JUGULAR WITH METS. Another brother had an IA. General Exam Limitations: no limitations General appearance: alert, in no apparent distress Head exam: Present: normocephalic ENT exam: Present: mucous membranes moist Neck exam: Present: other (Trachea is in midline) Respiratory exam: Present: normal lung sounds bilaterally. Absent: respiratory distress, wheezes, rales, rhonchi, stridor, chest wall tenderness Cardiovascular Exam: Present: regular rate, normal rhythm, normal heart sounds, other (Normal radial pulses bilaterally) GI/Abdominal exam: Present: soft. Absent: distended, tenderness, guarding Extremities exam: Present: other (Negative Homans sign bilaterally). Absent: tenderness, pedal edema, calf tenderness Neurological exam: Present: alert, oriented X3. Absent: motor sensory deficit Psychiatric exam: Present: normal affect, normal mood Skin exam: Present: warm, dry, intact, normal color Course Vital Signs 03/06/23 03/06/23 03/06/23 13:15 13:32 14:00 Temperature 98.0 F Pulse Rate 89 90 85 Respiratory 18 18 18 Rate Blood Pressure 145/93 164/116 O2 Sat by Pulse 99 98 95 Oximetry 03/06/23 14:01 Temperature Pulse Rate 101 H Respiratory 20 Rate Blood Pressure 168/111 O2 Sat by Pulse 95 Oximetry - Reevaluation(s) Reevaluation #1: 03/06/23 14:36 Patient states that her chest pressure has now improved to 2/10 after receiving sublingual nitroglycerin in the ED. Patient denies development of any new symptoms while in the ED. Patient remains alert and breathing comfortably with a normal room air oxygen saturation. Patient and fianc are aware the patient's test results, and patient agrees with hospital admission at this time. 03/06/23 14:40 Case, H&P, test results and ED/home management were discussed with Dr. Layton. He accepts hospital admission. He agrees with cardiology consultation. He has no further recommendations at this time. EKG Findings - EKG Comments: EKG Findings:: ED physician interpretation (interpreted by me): Normal sinus rhythm, ventricular rate of 82 bpm, no ectopy, left anterior fascicular block, normal ND and QRS intervals, normal QT interval, normal axis, no ST or T-wave abnormality Medical Decision Making - Medical Decision Making Was pt. sent in by a medical professional or institution (, PA, SCIENCE WRITER, urgent care, hospital, or care home...) When possible be specific @ -No Did you speak to anyone other than the patient for history (EMS, parent, family, police, friend...)? What history was obtained from this source @ -No Did you review nursing and triage notes (agree or disagree)? Why? @ -I reviewed and agree with nursing and triage notes Were old charts reviewed (outside hosp., previous admission, EMS record, old EKG, old radiological studies, urgent care reports/EKG's, care home records)? Report findings @ -No old charts were reviewed Differential Diagnosis (chest pain, altered mental status, abdominal pain women, abdominal pain men, vaginal bleeding, weakness, fever, dyspnea, syncope, headache, dizziness, GI bleed, back pain, seizure, CVA, palpatations, mental health, musculoskeletal)? @ -Differential Chest Pain: Stable Angina, Unstable Angina, STEMI, NSTEMI, Aortic Dissection, Pneumothorax, Musculoskeletal, Esophageal Spasm, GERD, PE, this is not meant to be an all- inclusive list. EKG interpreted by me (3pts min.). @ -As above X-rays interpreted by me (1pt min.). @ -Chest x-ray was reviewed myself and shows no acute abnormality. I agree with the radiologist's interpretation as above. CT interpreted by me (1pt min.). @ -None done U/S interpreted by me (1pt. min.). @ -None done What testing was considered but not performed or refused? (CT, X-rays, U/S, labs)? Why? @ -None What meds were considered but not given or refused? Why? @ -None Did you discuss the management of the patient with other professionals (professionals i.e. , PA, SCIENCE WRITER, lab, RT, psych nurse, social sciences professor, physical therapy instructor, teacher, retirement officer, case making machine operator)? Give summary @ -As above Was smoking cessation discussed for >3mins.? @ -No Was critical care preformed (if so, how long)? @ -No Were there social determinants of health that impacted care today? How? (Homelessness, low income, unemployed, alcoholism, drug addiction, transportation, low edu. Level, literacy, decrease access to med. care, skilled nursing, rehab)? @ -No Was there de-escalation of care discussed even if they declined (Discuss DNR or withdrawal of care, Hospice)? DNR status @ -No What co-morbidities impacted this encounter? (DM, HTN, Smoking, COPD, CAD, Cancer, CVA, ARF, Chemo, Hep., AIDS, mental health diagnosis, sleep apnea, morbid obesity)? @ -Obesity, hyperlipidemia, smoking Was patient admitted / discharged? Hospital course, mention meds given and route, prescriptions, significant lab abnormalities, going to OR and other pertinent info. @ -Patient is alert and breathing comfortably with a normal room air oxygen saturation in the ED. Patient's chest pressure has improved with administration of sublingual nitroglycerin in the ED. Patient's EKG shows no acute ischemic abnormality. Patient's troponin and d-dimer are within normal limits. Patient's chest x-ray shows no acute abnormality. Given the patient's symptoms, risk factor and heart score of 4-5, will admit the patient to the hospital for serial troponins, cardiac monitoring and cardiology consultation. Dr. Layton has accepted hospital admission. Undiagnosed new problem with uncertain prognosis? @ -No Drug Therapy requiring intensive monitoring for toxicity (Heparin, Nitro, Insulin, Cardizem)? @ -No Were any procedures done? @ -No Diagnosis/symptom? @ -Chest pain Acute, or Chronic, or Acute on Chronic? @ -Acute Uncomplicated (without systemic symptoms) or Complicated (systemic symptoms)? @ -default Side effects of treatment? @ -No Exacerbation, Progression, or Severe Exacerbation? @ -No Poses a threat to life or bodily function? How? (Chest pain, USA, IA, pneumonia, PE, COPD, DKA, ARF, appy, cholecystitis, CVA, Diverticulitis, Homicidal, Suicidal, threat to staff... and all critical care pts) @ -Yes. Should the etiology of the patient's chest pain be cardiac, it could potentially pose a threat to life. - Lab Data Result diagrams: 03/06/23 13:50 03/06/23 13:50 Lab Results 03/06/23 03/06/23 03/06/23 Range/Units 13:50 13:50 13:50 WBC 8.8 (3.8-10.6) k/uL RBC 5.03 (3.80-5.40) m/uL Hgb 15.1 (11.4-16.0) gm/dL Hct 45.6 (34.0-46.0) % MCV 90.6 (80.0-100.0) fL MCH 30.0 (25.0-35.0) pg MCHC 33.2 (31.0-37.0) g/dL RDW 12.8 (11.5-15.5) % Plt Count 368 (150-450) k/uL MPV 7.2 Neutrophils % 62 % Lymphocytes % 28 % Monocytes % 5 % Eosinophils % 4 % Basophils % 1 % Neutrophils # 5.5 (1.3-7.7) k/uL Lymphocytes # 2.5 (1.0-4.8) k/uL Monocytes # 0.4 (0-1.0) k/uL Eosinophils # 0.3 (0-0.7) k/uL Basophils # 0.1 (0-0.2) k/uL PT 9.4 (9.0-12.0) sec INR 0.9 (<1.2) APTT 22.3 (22.0-30.0) sec D-Dimer 0.39 (<0.60) mg/L FEU Sodium 139 (137-145) mmol/L Potassium 4.3 (3.5-5.1) mmol/L Chloride 107 (98-107) mmol/L Carbon Dioxide 23 (22-30) mmol/L Anion Gap 9 mmol/L BUN 11 (7-17) mg/dL Creatinine 0.84 (0.52-1.04) mg/dL Est GFR (CKD-EPI)AfAm >90 (>60 ml/min/1.73 sqM) Est GFR (CKD-EPI)NonAf 78 (>60 ml/min/1.73 sqM) Glucose 115 H (74-99) mg/dL Calcium 9.1 (8.4-10.2) mg/dL Magnesium 2.0 (1.6-2.3) mg/dL Total Bilirubin 0.3 (0.2-1.3) mg/dL AST 24 (14-36) U/L ALT 19 (4-34) U/L Alkaline Phosphatase 102 (38-126) U/L Troponin I (0.000-0.034) ng/mL NT-Pro-B Natriuret Pep pg/mL Total Protein 6.9 (6.3-8.2) g/dL Albumin 3.9 (3.5-5.0) g/dL 03/06/23 03/06/23 Range/Units 13:50 13:50 WBC (3.8-10.6) k/uL RBC (3.80-5.40) m/uL Hgb (11.4-16.0) gm/dL Hct (34.0-46.0) % MCV (80.0-100.0) fL MCH (25.0-35.0) pg MCHC (31.0-37.0) g/dL RDW (11.5-15.5) % Plt Count (150-450) k/uL MPV Neutrophils % % Lymphocytes % % Monocytes % % Eosinophils % % Basophils % % Neutrophils # (1.3-7.7) k/uL Lymphocytes # (1.0-4.8) k/uL Monocytes # (0-1.0) k/uL Eosinophils # (0-0.7) k/uL Basophils # (0-0.2) k/uL PT (9.0-12.0) sec INR (<1.2) APTT (22.0-30.0) sec D-Dimer (<0.60) mg/L FEU Sodium (137-145) mmol/L Potassium (3.5-5.1) mmol/L Chloride (98-107) mmol/L Carbon Dioxide (22-30) mmol/L Anion Gap mmol/L BUN (7-17) mg/dL Creatinine (0.52-1.04) mg/dL Est GFR (CKD-EPI)AfAm (>60 ml/min/1.73 sqM) Est GFR (CKD-EPI)NonAf (>60 ml/min/1.73 sqM) Glucose (74-99) mg/dL Calcium (8.4-10.2) mg/dL Magnesium (1.6-2.3) mg/dL Total Bilirubin (0.2-1.3) mg/dL AST (14-36) U/L ALT (4-34) U/L Alkaline Phosphatase (38-126) U/L Troponin I <0.012 (0.000-0.034) ng/mL NT-Pro-B Natriuret Pep 178 pg/mL Total Protein (6.3-8.2) g/dL Albumin (3.5-5.0) g/dL - Radiology Data Chest x-ray: No evidence for acute pulmonary disease. Disposition Clinical Impression: Chest pain Disposition: ADMITTED IP TO THIS HOSP Condition: Stable Is patient prescribed a controlled substance at d/c from ED?: No Referrals: Nehemiah Fuller MD [Primary Care Provider] - 1-2 days Time of Disposition: 14:44
[2023-03-06] MEDS ORDERED: NITROGLYCERIN SL TABS 0.4 MG TAB SUBLINGUAL STA (13:36)
[2023-03-06 13:57] LABS: Basophils # (A) 0.1 k/uL (0-0.2); Basophils % (A) 1 %; Eosinophils # (A) 0.3 k/uL (0-0.7); Eosinophils % (A) 4 %; HCT 45.6 % (34.0-46.0); HGB 15.1 gm/dL (11.4-16.0); Lymphocytes # (A) 2.5 k/uL (1.0-4.8); Lymphocytes % (A) 28 %; MCHC 33.2 g/dL (31.0-37.0); MCV 90.6 fL (80.0-100.0); Mean Platelet Volume 7.2; Monocytes # (A) 0.4 k/uL (0-1.0); Monocytes % (A) 5 %; Neutrophils # (A) 5.5 k/uL (1.3-7.7); Neutrophils % (A) 62 %; Platelet Count 368 k/uL (150-450); RBC 5.03 m/uL (3.80-5.40); RDW 12.8 % (11.5-15.5); WBC 8.8 k/uL (3.8-10.6)
[2023-03-06 14:11] LABS: ALT 19 U/L (4-34); African American GFR (CKD) >90 (>60 ml/min/1.73 sqM); Albumin 3.9 g/dL (3.5-5.0); Anion Gap 9 mmol/L; Blood Urea Nitrogen 11 mg/dL (7-17); Calcium 9.1 mg/dL (8.4-10.2); Carbon Dioxide 23 mmol/L (22-30); Chloride 107 mmol/L (98-107); Glucose 115 mg/dL (74-99); Non-African American GFR(CKD) 78 (>60 ml/min/1.73 sqM); Sodium 139 mmol/L (137-145); Total Bilirubin 0.3 mg/dL (0.2-1.3); Total Protein 6.9 g/dL (6.3-8.2)
[2023-03-06 14:12] LABS: AST 24 U/L (14-36); Alkaline Phosphatase 102 U/L (38-126); Potassium 4.3 mmol/L (3.5-5.1)
--- NOTE | 2023-03-06 14:13 | XR ---
EXAMINATION TYPE: XR chest 2V DATE OF EXAM: 03/06/2023 COMPARISON: 05/02/2021 HISTORY: Shortness of breath TECHNIQUE: Frontal and lateral views of the chest are obtained. FINDINGS: Scattered senescent parenchymal changes noted. Hyperinflation compatible with COPD. No evidence for infiltrate. No evidence for atelectasis. Heart size is stable. Mediastinal structures are stable and grossly unremarkable. No evidence for hilar prominence. Degenerative changes dorsal spine. IMPRESSION: 1. No evidence for acute pulmonary disease.
[2023-03-06 14:20] LABS: INR 0.9 (<1.2); Partial Thromboplastin Time 22.3 sec (22.0-30.0); Prothrombin Time 9.4 sec (9.0-12.0)
[2023-03-06] MEDS ORDERED: NALOXONE 0.4 MG/ML 1 ML VIAL IV PRN (14:41)
[2023-03-06] MEDS ORDERED: MORPHINE SULFATE 4 MG/ML SYRINGE IVP STA (15:02)
[2023-03-06] MEDS ORDERED: ALBUTEROL HFA INHALER INHALATION PRN (15:27)
--- NOTE | 2023-03-06 15:38 | P.HPIM ---
History of Present Illness H&P Date: 03/06/23 Patient is a 57-year-old female with PMH of asthma, depression, seasonal ALLERGIES, hypothyroidism, thyroid nodule that presents the ED for chest pain. Patient reports chest pain that started intermittently last night. Her pain last night was described as sharp shooting type pain over the right side of the chest. She took 4 aspirins. Patient was able to sleep through the night and woke up this morning feeling well. One hour prior to arrival, patient started to experience pressure-like pain in her left chest radiating to the left jaw. She took nitroglycerin which relieved the pain from a 4-10 to a 2 out of 10 severity. She does report smoking half pack of cigarettes daily. No history of IA or CVA. Chest pain was associated with shortness of breath. No relation to movement or palpation. This prompted her to come to the ED. In the ED, she was noted to be hypertensive with BP of 164/116. CBC was unremarkable. Coagulation panel negative. D-dimer 0.39. CMP showed glucose of 1:15. Initial troponin less than 0.012. BNP 178. EKG showed normal sinus rhythm with ventricular rate of 82. Chest x-ray negative for acute disease. Patient is admitted for chest pain, rule out acute coronary syndrome with cardiology consultation. Pertinent positives and negatives as discussed in HPI, a complete review of systems was performed and all other systems are negative. General: non toxic, no distress, appears at stated age, obese Derm: warm, dry Head: atraumatic, normocephalic, symmetric Eyes: EOMI, no lid lag, anicteric sclera Cardiovascular: S1S2 reg, no murmur Lungs: CTA bilateral, no rhonchi, no rales , no accessory muscle use Ext: no gross muscle atrophy, no edema, no contractures Neuro: no focal neuro deficits Psych: Alert, oriented, appropriate affect Chest pain Elevated BP without the diagnosis of hypertension Smoker Obesity with BMI 44.2 Chronic conditions: Asthma, depression, seasonal ALLERGIES, hypothyroidism, thyroid nodule Based on my assessment of this patient, this patient meets a high complexity level of care. Patient has an acute diagnosis of chest pain that poses a threat to life or bodily function. Concerns for acute coronary syndrome. Trend troponin/EKG to rule out ACS. Obtain echocardiogram. Telemetry monitoring. Cardiology consultation. We will continue to monitor blood pressure for now. Initiate antihypertensive medication if remains elevated. Restart home medications. Lovenox SQ for DVT prophylaxis. No code but okay with intubation. I have reviewed the following practice management consultant notes: I have reviewed the results of the following tests: CBC, CMP, correlation panel, d-dimer, troponin, BNP, chest x-ray as above. I have ordered the following tests: Troponin. Echocardiogram. I have discussed the care of this patient with the following independent historian: I have independently interpreted the following test below: EKG interpreted as above. I have discussed the management of this patient with the following physician: Case is discussed with the ED physician in detail. Past Medical History Past Medical History: Asthma, GERD/Reflux, Hyperlipidemia, Pneumonia, Thyroid Disorder Additional Past Medical History / Comment(s): states has had "choking feeling" recent diagnosed with benign thyroid nodules, NECK PAIN recent diagnosis of disintegrated T-1 with lesions, MIGRAINES, OCCASIONAL SVT- STATES HX OF 2ND DEGREE HEART BLOCK WHEN HER BLOOD PRESSURE GOES LOW. SHORTNESS OF BREATH WITH EXERTION , HIATAL HERNIA History of Any Multi-Drug Resistant Organisms: None Reported Past Surgical History: Breast Surgery, Cholecystectomy, Heart Catheterization, Orthopedic Surgery, Tonsillectomy Additional Past Surgical History / Comment(s): thyroid nodule bx, LEFT OVARY & TUBE REMOVED 2000. Multiple laparoscopy is for endometriosis, HEART CATH (2013). Colonoscopy . Left lower arm bone reduction surgery Past Anesthesia/Blood Transfusion Reactions: Previous Problems w/ Anesthesia Additional Past Anesthesia/Blood Transfusion Reaction / Comment(s): STATES severe vomiting WITH DILAUDID. STATES HX OF SVT AND 2ND DEGREE HEART BLOCK WHEN BP DROPS LOW. Past Psychological History: Depression Smoking Status: Current every day smoker Past Alcohol Use History: Rare Past Drug Use History: None Reported - Past Family History Mother Family Medical History: Cancer Additional Family Medical History / Comment(s): OF COLON RECTAL CANCER. 2 maternal aunts had breast cancer. Both grandmothers had an IA. Father Family Medical History: Cancer, Congestive Heart Failure (CHF), COPD Additional Family Medical History / Comment(s): SKIN CANCER Brother(s) Family Medical History: Cancer Additional Family Medical History / Comment(s): TUMOR AROUND JUGULAR WITH METS. Another brother had an IA. Medications and Allergies Home Medications Medication Instructions Recorded Confirmed Type Cetirizine HCl [Zyrtec] 10 mg PO DAILY 10/17/17 05/05/21 History FLUoxetine HCL [PROzac] 20 mg PO HS 10/17/17 05/05/21 History Albuterol Sulfate [Proair Hfa] 2 puff INHALATION RT-Q6H PRN 11/24/17 05/05/21 H istory Levothyroxine Sodium [Synthroid] 75 mcg PO DAILY 06/19/20 05/05/21 History Budesonide/Formoterol Fumarate 2 puff INHALATION RT-BID 01/07/21 05/05/21 History [Symbicort 160-4.5 Mcg Inhaler] Montelukast Sodium [Singulair] 10 mg PO HS 01/07/21 05/05/21 History Fluticasone Nasal [place] [Flonase 2 spr EA NOSTRIL DAILY 05/05/21 05/05/21 History Nasal [place]] Levofloxacin [Levaquin] 750 mg PO DAILY 1 Days #5 tab 05/05/21 Rx Omeprazole 20 mg PO HS 05/05/21 05/05/21 History Sea-Kelp 1 tab PO DAILY 05/05/21 05/05/21 History Triamterene/Hydrochlorothiazid 1 cap PO DAILY PRN 05/05/21 05/05/21 History [Dyazide 37.5-25 Capsule] predniSONE [Deltasone] 20 mg PO BID #10 tab 05/05/21 Rx Allergies Allergy/AdvReac Type Severity Reaction Status Date / Time hydromorphone [From Dilaudid] Allergy Severe Verified 03/06/23 13:19 Vomiting adhesive tape AdvReac Itching, Verified 03/06/23 13:19 RED SKIN atorvastatin [From Lipitor] AdvReac Severe Verified 03/06/23 15:14 joint pain ezetimibe [From Zet[place]] AdvReac Severe Verified 03/06/23 15:14 joint pain Physical Exam Vitals: Vital Signs Temp Pulse Resp BP Pulse Ox 03/06/23 15:36 20 03/06/23 15:22 76 20 146/92 97 03/06/23 14:01 101 H 20 168/111 95 03/06/23 14:00 85 18 164/116 95 03/06/23 13:32 90 18 98 03/06/23 13:15 98.0 F 89 18 145/93 99 Intake and Output 06/03/06/23 03/06/23 06:59 14:59 22:59 Other: Weight 126.099 kg Results CBC & Chem 7: 03/06/23 13:50 03/06/23 13:50 Labs: Abnormal Lab Results - Last 24 Hours (Table) 03/06/23 Range/Units 13:50 Glucose 115 H (74-99) mg/dL
[2023-03-06] MEDS: NITROGLYCERIN SL TABS 0.4 MG TAB SUBLINGUAL PRN ×3 (17:06→22:04)
[2023-03-06] MEDS: FLUoxetine HCL 20 MG CAP PO SCH (20:04)
[2023-03-06] MEDS: MONTELUKAST 10 MG TAB PO SCH (20:04)
[2023-03-06] MEDS: MORPHINE SULFATE 2 MG/ML SYRINGE IVP PRN (21:20)
[2023-03-07 09:28] LABS: Basophils # (A) 0.11 X 10*3/uL (0.00-0.10); Basophils % (A) 1.3 %; Eosinophils # (A) 0.28 X 10*3/uL (0.04-0.35); Eosinophils % (A) 3.4 %; HCT 43.1 % (37.2-46.3); HGB 13.8 d/dL (12.0-15.0); Lymphocytes # (A) 3.32 X 10*3/uL (0.90-5.00); Lymphocytes % (A) 39.9 %; MCH 29.5 pg (27.0-32.0); MCV 92.1 FL (80.0-97.0); Mean Platelet Volume 9.6 FL (9.5-12.2); Monocytes # (A) 0.52 X 10*3/uL (0.20-1.00); Monocytes % (A) 6.3 %; NRBC Per 100 WBC 0 X 10*3/uL (0.00-0.01); Neutrophils # (A) 4.08 X 10*3/uL (1.80-7.70); Platelet Count 340 X 10*3/uL (140-440); RBC 4.68 X 10*6/uL (4.10-5.20); RDW 12.9 % (11.5-14.5); WBC 8.32 X 10*3/uL (4.50-10.00)
[2023-03-07] MEDS: LEVOTHYROXINE 75 MCG TAB PO SCH (09:30)
[2023-03-07] MEDS: LORATADINE 10 MG TAB PO SCH (09:30)
[2023-03-07] MEDS: ENOXAPARIN 40 MG/0.4 ML SYRINGE SQ SCH (09:30)
[2023-03-07 09:37] LABS: ALT 14 U/L (8-44); AST 16 U/L (13-35); Albumin 3.7 d/dL (3.8-4.9); Albumin/Globulin Ratio 1.48 Ratio (1.60-3.17); Alkaline Phosphatase 107 U/L (41-126); BUN/Creat Ratio 14.11 Ratio (12.00-20.00); Blood Urea Nitrogen 12.7 mg/dL (9.0-27.0); Calcium 9.2 mg/dL (8.7-10.3); Carbon Dioxide 26.4 mmol/L (21.6-31.8); Chloride 105 mmol/L (96-109); Globulin 2.5 d/dL (1.6-3.3); Glucose 91 mg/dL (70-110); Potassium 4.4 mmol/L (3.5-5.5); Sodium 141 mmol/L (135-145); Total Bilirubin 0.2 mg/dL (0.3-1.2); Total Protein 6.2 d/dL (6.2-8.2)
--- NOTE | 2023-03-07 12:11 | P.CRDCN ---
History of Present Illness Consult date: 03/07/23 Consult reason: chest pain History of present illness: This is Fito Cruz NP, I'm dictating on behalf of Dr. Loo's H&P and A&P The patient was interviewed and examined. HPI: Patient is a pleasant 57-year-old female who presents to the hospital with chest pain. Patient reports that she had central chest pressure yesterday evening, which started with intermittent, sharp, shooting left chest pain yesterday afternoon. Patient reports the pressure/pain has been radiating into her left jaw. Patient reports that she has no previous cardiac history. She does report smoking one half pack of cigarettes daily. The emergency department the patient was found to be in normal sinus rhythm on telemetry. Troponins have been negative since admission. Patient has a pertinent past medical history includes asthma, GERD, hyperlipidemia, and thyroid disorder. Patient is a past pertinent surgical history that includes cholecystectomy, heart catheterization, tonsillectomy, and breast surgery. This morning the patient reports that she is feeling okay. She is currently denying chest pain, shortness of breath, palpitations, diaphoresis, dizziness, or near syncope. ROS: [No fever, chills, or rigors] [no cough, phlegm, or expectoration] [no nausea, vomiting, or diarrhea] [no hematuria, dysuria] [no musculoskelatal complaints] [no strokes or seizures] [no skin lesions] EXAMINATION: GENERAL: Well-appearing, well-nourished and in no acute distress. NECK: Supple without JVD or thyromegaly. LUNGS: Breath sounds clear to auscultation bilaterally. Respiration equal and unlabored. No wheezes, rales or rhonchi. HEART: Regular rate and rhythm without murmurs, rubs or gallops. S1 and S2 heard. EXTREMITIES: Normal range of motion, no edema. No clubbing or cyanosis. Peripheral pulses intact and strong. REVIEW OF LABS, ECG & MEDICAL DATA: LABS: White count 8.3, hemoglobin 13.8, platelets 340, d-dimer 0.39, sodium 141, potassium 4.4, B1 12.7, creatinine 0.9, magnesium 2.0, troponin 3-less than 0.012, BNP 178 EKG: Normal sinus rhythm IMAGING: Chest x-ray dated 03/06/2023 demonstrates no evidence for acute pulmonary disease. VITALS: Temp 98.2, pulse 72, respirations 16, blood pressure 134/81, O2 saturation 95% on room air IMPRESSION: 1. Chest pain 2. History of hyperlipidemia 3. Current every day smoker 4. Obesity PLAN: Obtain a lipid panel and hemoglobin A1c. Schedule for dobutamine stress echo with [facility] tomorrow morning. Further recommendations based on results of stress echo and telemetry. Thank you for the consult and allowing us to participate in the care of this patient. Past Medical History Past Medical History: Asthma, GERD/Reflux, Hyperlipidemia, Pneumonia, Thyroid Disorder Additional Past Medical History / Comment(s): states has had "choking feeling" recent diagnosed with benign thyroid nodules, NECK PAIN spurs on CSpine, MIGRAINES, OCCASIONAL SVT- STATES HX OF 2ND DEGREE HEART BLOCK WHEN HER BLOOD PRESSURE GOES LOW. SHORTNESS OF BREATH WITH EXERTION , HIATAL HERNIA History of Any Multi-Drug Resistant Organisms: None Reported Past Surgical History: Breast Surgery, Cholecystectomy, Heart Catheterization, Orthopedic Surgery, Tonsillectomy Additional Past Surgical History / Comment(s): thyroid nodule bx, LEFT OVARY & TUBE REMOVED 2000. Multiple laparoscopy is for endometriosis, HEART CATH (2013). Colonoscopy . Left lower arm bone reduction surgery Past Anesthesia/Blood Transfusion Reactions: Previous Problems w/ Anesthesia Additional Past Anesthesia/Blood Transfusion Reaction / Comment(s): STATES severe projectile vomiting WITH DILAUDID. STATES HX OF SVT AND 2ND DEGREE HEART BLOCK WHEN BP DROPS LOW. Past Psychological History: Depression Smoking Status: Current every day smoker Past Alcohol Use History: Rare Additional Past Alcohol Use History / Comment(s): STARTED SMOKING AT AGE 18 QUIT SMOKING QUIT MARCH 2013. SMOKED 1-1 1/2 PPD, Started smoking 2021, 1/2 Pack per day Past Drug Use History: None Reported - Past Family History Mother Family Medical History: Cancer Additional Family Medical History / Comment(s): OF COLON RECTAL CANCER. 2 maternal aunts had breast cancer. Both grandmothers had an FL. Father Family Medical History: Cancer, Congestive Heart Failure (CHF), COPD Additional Family Medical History / Comment(s): SKIN CANCER Brother(s) Family Medical History: Cancer Additional Family Medical History / Comment(s): TUMOR AROUND JUGULAR WITH METS. Another brother had an FL. Medications and Allergies Home Medications Medication Instructions Recorded Confirmed Type FLUoxetine HCL [PROzac] 20 mg PO HS 10/17/17 03/06/23 History Albuterol Sulfate [Proair Hfa] 2 puff INHALATION RT-Q6H PRN 11/24/17 03/06/23 History Levothyroxine Sodium [Synthroid] 75 mcg PO DAILY 06/19/20 03/06/23 History Montelukast Sodium [Singulair] 10 mg PO HS 01/07/21 03/06/23 History Fexofenadine HCl [Krys Allergy] 180 mg PO DAILY 03/06/23 03/06/23 History Progesterone, Micronized 200 mg PO HS 03/06/23 03/06/23 History [Progesterone] Allergies Allergy/AdvReac Type Severity Reaction Status Date / Time hydromorphone [From Dilaudid] Allergy Severe Verified 03/06/23 13:19 Vomiting adhesive tape AdvReac Itching, Verified 03/06/23 13:19 RED SKIN atorvastatin [From Lipitor] AdvReac Severe Verified 03/06/23 15:14 joint pain ezetimibe [From Zetia] AdvReac Severe Verified 03/06/23 15:14 joint pain Physical Exam Vitals: Vital Signs Temp Pulse Pulse Resp BP BP Pulse Ox 03/07/23 07:00 98.2 F 72 16 134/81 95 03/07/23 02:12 97.6 F 75 16 122/71 98 03/06/23 22:06 88 16 104/71 95 03/06/23 21:54 73 16 121/83 98 03/06/23 21:49 72 139/80 03/06/23 19:03 98.1 F 74 15 116/77 96 03/06/23 15:46 98.1 F 72 17 140/92 98 03/06/23 15:36 20 03/06/23 15:22 76 20 146/92 97 03/06/23 14:01 101 H 20 168/111 95 03/06/23 14:00 85 18 164/116 95 03/06/23 13:32 90 18 98 03/06/23 13:15 98.0 F 89 18 145/93 99 Intake and Output 03/06/23 03/07/23 03/07/23 22:59 06:59 14:59 Intake Total 479 0 Balance 479 0 Intake: Oral 479 0 Other: Voiding Method Toilet # Voids 1 2 Weight 126.099 kg Results 03/07/23 06:14 03/07/23 06:14 Cardiac Enzymes 03/06/23 03/06/23 03/06/23 Range/Units 13:50 13:50 16:28 AST 24 (14-36) U/L Troponin I <0.012 <0.012 (0.000-0.034) ng/mL 03/06/23 03/07/23 Range/Units 19:52 06:14 AST 16 (14-36) U/L Troponin I <0.012 (0.000-0.034) ng/mL Coagulation 03/06/23 Range/Units 13:50 PT 9.4 (9.0-12.0) sec APTT 22.3 (22.0-30.0) sec CBC 03/06/23 03/07/23 Range/Units 13:50 06:14 WBC 8.8 8.32 (3.8-10.6) k/uL RBC 5.03 4.68 (3.80-5.40) m/uL Hgb 15.1 13.8 (11.4-16.0) gm/dL Hct 45.6 43.1 (34.0-46.0) % Plt Count 368 340 (150-450) k/uL Comprehensive Metabolic Panel 03/06/23 03/07/23 Range/Units 13:50 06:14 Sodium 139 141 (137-145) mmol/L Potassium 4.3 4.4 (3.5-5.1) mmol/L Chloride 107 105 (98-107) mmol/L Carbon Dioxide 23 26.4 (22-30) mmol/L BUN 11 12.7 (7-17) mg/dL Creatinine 0.84 0.9 (0.52-1.04) mg/dL Glucose 115 H 91 (74-99) mg/dL Calcium 9.1 9.2 (8.4-10.2) mg/dL AST 24 16 (14-36) U/L ALT 19 14 (4-34) U/L Alkaline Phosphatase 102 107 (38-126) U/L Total Protein 6.9 6.2 (6.3-8.2) g/dL Albumin 3.9 3.7 L (3.5-5.0) g/dL Current Medications Generic Name Dose Route Start Last Admin Trade Name Freq PRN Reason Stop Dose Admin Albuterol Sulfate 2 puff 03/06/23 15:27 Albuterol Hfa Inhaler INHALATION RT-Q6H PRN Shortness Of Breath Enoxaparin Sodium 40 mg 03/07/23 09:00 03/07/23 09:30 Enoxaparin 40 Mg/0.4 Ml Syringe SQ 40 mg DAILY [place] Administration Fluoxetine HCl 20 mg 03/06/23 21:00 03/06/23 20:04 Fluoxetine Hcl 20 Mg Cap PO 20 mg HS [place] Administration Dobutamine HCl/Dextrose 500 mg 250 mls @ 37.83 mls/hr 03/08/23 08:00 / IV Solution IV 03/08/23 13:00 .Q6H37M PRN Per Protocol Protocol 10 MCG/KG/MIN Levothyroxine Sodium 75 mcg 03/07/23 09:00 03/07/23 09:30 Levothyroxine 75 Mcg Tab PO 75 mcg DAILY [place] Administration Loratadine 10 mg 03/07/23 09:00 03/07/23 09:30 Loratadine 10 Mg Tab PO 10 mg DAILY [place] Administration Montelukast Sodium 10 mg 03/06/23 21:00 03/06/23 20:04 Montelukast 10 Mg Tab PO 10 mg HS [place] Administration Morphine Sulfate 2 mg 03/06/23 16:38 03/06/23 21:20 Morphine Sulfate 2 Mg/Ml Syringe IVP 2 mg Q6HR PRN Administration Pain/Discomfort Naloxone HCl 0.2 mg 03/06/23 14:41 Naloxone 0.4 Mg/Ml 1 Ml Vial IV Q2M PRN Opioid Reversal Nitroglycerin 0.4 mg 03/06/23 16:38 03/06/23 22:04 Nitroglycerin Sl Tabs 0.4 Mg Tab SUBLINGUAL 0.4 mg Q5M PRN Administration Chest Pain Intake and Output 03/06/23 03/07/23 03/07/23 22:59 06:59 14:59 Intake Total 479 0 Balance 479 0 Intake: Oral 479 0 Other: Voiding Method Toilet # Voids 1 2 Weight 126.099 kg 03/07/23 06:14 03/07/23 06:14
[2023-03-07] MEDS: ACETAMINOPHEN TAB 325 MG TAB PO PRN ×2 (12:23→22:38)
[2023-03-07] MEDS: NITROGLYCERIN SL TABS 0.4 MG TAB SUBLINGUAL PRN ×3 (12:59→13:10)
[2023-03-07] MEDS: MORPHINE SULFATE 2 MG/ML SYRINGE IVP PRN (13:17)
--- NOTE | 2023-03-07 14:02 | P.PN ---
Subjective Progress Note Date: 03/07/23 Patient is a 57-year-old female with PMH of asthma, depression, seasonal ALLERGIES, hypothyroidism, thyroid nodule that presents the ED for chest pain. Patient reports chest pain that started intermittently last night. Her pain last night was described as sharp shooting type pain over the right side of the chest. She took 4 aspirins. Patient was able to sleep through the night and woke up this morning feeling well. One hour prior to arrival, patient started to experience pressure-like pain in her left chest radiating to the left jaw. She took nitroglycerin which relieved the pain from a 4-10 to a 2 out of 10 severity. She does report smoking half pack of cigarettes daily. No history of UT or CVA. Chest pain was associated with shortness of breath. No relation to movement or palpation. This prompted her to come to the ED. In the ED, she was noted to be hypertensive with BP of 164/116. CBC was unremarkable. Coagulation panel negative. D-dimer 0.39. CMP showed glucose of 1:15. Initial troponin less than 0.012. BNP 178. EKG showed normal sinus rhythm with ventricular rate of 82. Chest x-ray negative for acute disease. Patient is admitted for chest pain, rule out acute coronary syndrome with cardiology consultation. Patient was seen and examined. No acute events overnight. She denies any chest pain, SOB or palpitations. Troponins have been negative x 3. CBC and BMP u nremarkable. Cardiology consulted, plans for stress test tomorrow. General: non toxic, no distress, appears at stated age, obese Derm: warm, dry Head: atraumatic, normocephalic, symmetric Eyes: EOMI, no lid lag, anicteric sclera Cardiovascular: S1S2 reg, no murmur Lungs: CTA bilateral, no rhonchi, no rales , no accessory muscle use Ext: no gross muscle atrophy, no edema, no contractures Neuro: no focal neuro deficits Psych: Alert, oriented, appropriate affect Chest pain Elevated BP without the diagnosis of hypertension Smoker Obesity with BMI 44.2 Chronic conditions: Asthma, depression, seasonal ALLERGIES, hypothyroidism, thyroid nodule Based on my assessment of this patient, this patient meets a high complexity level of care. Patient has an acute diagnosis of chest pain that poses a threat to life or bodily function. Concerns for acute coronary syndrome. ACS ruled out. Obtain echocardiogram. Plans for stress test tomorrow. Telemetry monitoring. Cardiology consultation. BP 132/82. We will continue to monitor blood pressure for now. Initiate antihypertensive medication if remains elevated. Restart home medications. Lovenox SQ for DVT prophylaxis. No code but okay with intubation. I have reviewed the following inside sales consultant notes: Cardiology note reviewed as above. I have reviewed the results of the following tests: CBC, BMP, Troponin as above. I have ordered the following tests: Echocardiogram. Agree with stress test. I have discussed the care of this patient with the following independent historian: I have independently interpreted the following test below: I have discussed the management of this patient with the following physician: Objective - Vital Signs Vital signs: Vital Signs Temp 98.2 F 03/07/23 07:00 Pulse 69 03/07/23 13:28 Resp 12 03/07/23 13:28 BP 132/82 03/07/23 13:28 Pulse Ox 97 03/07/23 13:28 FiO2 Intake & Output 03/06/23 03/07/23 03/07/23 18:59 06:59 18:59 Intake Total 229 250 Balance 229 250 Weight 126.099 kg Intake: Oral 229 250 Other: Voiding Method Toilet # Voids 2 - Labs CBC & Chem 7: 03/07/23 06:14 03/07/23 06:14 Labs: Abnormal Lab Results - Last 24 Hours (Table) 03/06/23 03/07/23 03/07/23 Range/Units 13:50 06:14 06:14 Basophils # 0.11 H (0.00-0.10) X 10*3/uL Glucose 115 H (74-99) mg/dL Total Bilirubin 0.2 L (0.3-1.2) mg/dL Albumin 3.7 L (3.8-4.9) d/dL Albumin/Globulin Ratio 1.48 L (1.60-3.17) Ratio
[2023-03-07 17:11] LABS: LDL Cholesterol,Calculated 93.4 mg/dL (0.0-131.0)
[2023-03-07] MEDS: NITROGLYCERIN OINT 1 INCH/GM PACKET TOPICAL SCH ×2 (18:13→22:40)
[2023-03-07] MEDS: FLUoxetine HCL 20 MG CAP PO SCH (20:07)
[2023-03-07] MEDS: MONTELUKAST 10 MG TAB PO SCH (20:07)
[2023-03-08] MEDS: NITROGLYCERIN OINT 1 INCH/GM PACKET TOPICAL SCH ×2 (05:04→11:06)
[2023-03-08 07:38] VITALS: BP 108/68; PULSE 81; RESP 19; TEMP 98
[2023-03-08] MEDS ORDERED: DOBUTamine DRIP for NUC MED 500 MG in DEXTROSE/WATER 1 250ML.BAG IV PRN (08:00)
[2023-03-08] MEDS ORDERED: DOBUTamine DRIP for NUC MED 500 MG/250 ML BAG IV ONE (08:00)
[2023-03-08] MEDS: ENOXAPARIN 40 MG/0.4 ML SYRINGE SQ SCH (08:39)
[2023-03-08] MEDS: LORATADINE 10 MG TAB PO SCH (08:39)
[2023-03-08] MEDS: LEVOTHYROXINE 75 MCG TAB PO SCH (08:39)
--- NOTE | 2023-03-08 10:19 | P.PN ---
Subjective Progress Note Date: 03/08/23 HPI: Patient is a pleasant 57-year-old female who presents to the hospital with chest pain. Patient reports that she had central chest pressure yesterday evening, which started with intermittent, sharp, shooting left chest pain yesterday afternoon. Patient reports the pressure/pain has been radiating into her left jaw. Patient reports that she has no previous cardiac history. She does report smoking one half pack of cigarettes daily. The emergency department the patient was found to be in normal sinus rhythm on telemetry. Troponins have been negative since admission. Patient has a pertinent past medical history includes asthma, GERD, hyperlipidemia, and thyroid disorder. Patient is a past pertinent surgical history that includes cholecystectomy, heart catheterization, tonsillectomy, and breast surgery. This morning the patient reports that she is feeling okay. She is currently denying chest pain, shortness of breath, palpitations, diaphoresis, dizziness, or near syncope. REVIEW OF LABS, ECG & MEDICAL DATA: LABS: White count 8.3, hemoglobin 13.8, platelets 340, d-dimer 0.39, sodium 141, potassium 4.4, B1 12.7, creatinine 0.9, magnesium 2.0, troponin 3-less than 0.012, BNP 178 EKG: Normal sinus rhythm IMAGING: Chest x-ray dated 03/06/2023 demonstrates no evidence for acute p ulmonary disease. VITALS: Temp 98.2, pulse 72, respirations 16, blood pressure 134/81, O2 saturation 95% on room air 03/08 Patient is seen today in follow-up. She is scheduled for dobutamine stress test today. She states she has not had any chest pains since she took nitroglycerin and morphine in this resolved her pain. No shortness of breath. Patient is concerned that her thyroid has been a problem and may be contributing to her high blood pressure and chest pain. She has a thyroid nodule biopsy scheduled in mid March. Lipid panel is within normal limits. Blood pressure this morning 108/68, heart rate in the 60s to 80s. She's been afebrile. Pulse ox 94% on room air. Repeat EKG is sinus rhythm with no acute changes. A1c is pending. Echocardiogram has been obtained and report is pending. EXAMINATION: GENERAL: Well-appearing, well-nourished and in no acute distress. NECK: Supple without JVD LUNGS: Respiration equal and unlabored. IMPRESSION: 1. Chest pain 2. History of hyperlipidemia 3. Current every day smoker 4. Obesity 5. Thyroid nodule PLAN: Complete dobutamine stress echo and obtain report on echocardiogram. If above testing is unremarkable, patient is cleared for discharge home. Patient may follow-up in the office with Dr. Loo. Nurse practitioner note has been reviewed, I agree with the documented findings and plan of care. Patient was seen and examined. Objective - Vital Signs Vital signs: Vital Signs Temp 98 F 03/08/23 07:02 Pulse 81 03/08/23 07:02 Resp 19 03/08/23 07:02 BP 108/68 03/08/23 07:02 Pulse Ox 94 L 03/08/23 07:55 FiO2 Intake & Output 03/07/23 03/08/23 03/08/23 18:59 06:59 18:59 Intake Total 118 Balance 118 Intake: Oral 118 Other: Voiding Method Toilet Toilet # Voids 2 1 - Labs CBC & Chem 7: 03/07/23 06:14 03/07/23 06:14 Labs: Abnormal Lab Results - Last 24 Hours (Table) 03/07/23 03/07/23 Range/Units 06:14 06:14 Basophils # 0.11 H (0.00-0.10) X 10*3/uL Total Bilirubin 0.2 L (0.3-1.2) mg/dL Albumin 3.7 L (3.8-4.9) d/dL Albumin/Globulin Ratio 1.48 L (1.60-3.17) Ratio
--- NOTE | 2023-03-08 10:43 | CA ---
Transthoracic Echo Report Name: Estiven Madera Age: 57 Gender: F : 1965 Exam Date: 03/08/2023 07:51 Exam Location: [facility] Ht (in): 66.5 Wt (lb): 278 Ordering Physician: Td Layton MD Attending/Referring Phys: Tape Recorder Mechanic Jes Clements RDCS Procedure CPT: Indications: CP Cardiac Hx: Technical Quality: Technically difficult study Contrast 1: Lumason Total Dose (mL): 3 Contrast 2: Total Dose (mL): MEASUREMENTS (Male / Female) Normal Values 2D ECHO LV Diastolic Diameter PLAX 4.2 cm 4.2 - 5.9 / 3.9 - 5.3 cm LV Systolic Diameter PLAX 3.0 cm IVS Diastolic Thickness 1.3 cm 0.6 - 1.0 / 0.6 - 0.9 cm LVPW Diastolic Thickness 1.1 cm 0.6 - 1.0 / 0.6 - 0.9 cm LV Relative Wall Thickness 0.6 RV Internal Dim ED PLAX 2.8 cm LA Systolic Diameter LX 3.8 cm 3.0 - 4.0 / 2.7 - 3.8 cm LV Diastolic Volume MOD BP 75.2 cm??? 67 - 155 / 56 - 104 cm??? LV Systolic Volume MOD BP 21.6 cm??? 22 - 58 / 19 - 49 cm??? LV Ejection Fraction MOD BP 71.3 % >= 55 % LV Cardiac Index MOD BP 1350.5 cm???/min???m??? LV Diastolic Volume MOD 4C 80.7 cm??? LV Systolic Volume MOD 4C 25.6 cm??? LV Ejection Fraction MOD 4C 68.2 % LV Cardiac Index MOD 4C 1388.1 cm???/min???m??? LV Diastolic Length 4C 7.7 cm LV Systolic Length 4C 5.3 cm LV Diastolic Volume MOD 2C 55.8 cm??? LV Systolic Volume MOD 2C 18.0 cm??? LV Ejection Fraction MOD 2C 67.8 % LV Cardiac Index MOD 2C 953.3 cm???/min???m??? LV Diastolic Length 2C 6.1 cm LV Systolic Length 2C 5.2 cm LA Volume 69.7 cm??? 18 - 58 / 22 - 52 cm??? M-MODE Aortic Root Diameter MM 2.7 cm MV E Point Septal Separation 0.3 cm AV Cusp Separation MM 1.8 cm DOPPLER AV Peak Velocity 151.7 cm/s AV Peak Gradient 9.2 mmHg MV Area PHT 3.4 cm??? Mitral E Point Velocity 82.6 cm/s Mitral A Point Velocity 74.6 cm/s Mitral E to A Ratio 1.1 MV Deceleration Time 226.3 ms MV E' Velocity 10.0 cm/s Mitral E to MV E' Ratio 8.3 TR Peak Velocity 212.9 cm/s TR Peak Gradient 18.1 mmHg Right Ventricular Systolic Press 23.1 mmHg FINDINGS Left Ventricle Left ventricular ejection fraction is estimated at 55-60 %. Mildly increased septal wall thickness. Mildly increased posterior wall thickness. Left ventricular cavity size normal. Right Ventricle Normal right ventricular size and function. Right ventricular systolic pressure within normal limits. Right Atrium Normal right atrial size. Left Atrium Moderately increased left atrial volume. Mildly increased left atrial area. Mitral Valve Structurally normal mitral valve. No mitral stenosis, regurgitation or prolapse. Aortic Valve Trileaflet aortic valve. No aortic valve stenosis or regurgitation. Tricuspid Valve Structurally normal tricuspid valve. Mild tricuspid regurgitation. Pulmonic Valve Structurally normal pulmonic valve. No pulmonic regurgitation. Pericardium Normal pericardium. No pericardial effusion. Aorta Normal size aortic root and proximal ascending aorta. CONCLUSIONS Normal LV size and systolic function. Mildly enlarged atria. Mitral annular calcification of a mild degree. Mild mitral and tricuspid regurgitation. No pericardial effusion. No pulmonary hypertension Previewed by: Dr. Cathy David MD (Electronically Signed) Final Date: 08 March 2023 10:43
--- NOTE | 2023-03-08 10:50 | CA ---
Dobutamine Stress Echocardiogram Report Estiven Madera Age: 57 Gender: F : 1965 Exam Date: 03/08/2023 09:34 Exam Location: [facility] Ordering Physician: Fito Cruz [facility] Referring Physician: IMTIAZ, Insurance Account Representative: DANY Technologist: Ht (in): 66 Wt (lb): 278 Procedure CPT: Indication: Chest Pain ICD-9 Codes: Rhythm: Patient History: CHEST PAIN, ELEVATED CHOLESTEROL LEVELS, CURRENT SMOKER 0.5 PPD X 10 YEARS, PRIOR CATH, FAMILY HX OF HEART DISEASE, ASTHMA Cardiac Medications: Medications in past 24 hours: Contrast: Lumason Total Dose (mL): Stress Results Protocol: Dobutamine Peak Dose (???g/kg/min): 30 Duration (min:sec): Atropine:(mg) None Target HR: 140 Double Product: [id number] Resting HR: 66 Resting BP: 131 / 77 Peak HR: 141 Peak BP: 240 / 55 Max Predicted HR: 165 85 % Max Predicted HR Stress Summary: TOTAL INFUSION TIME 8:18 BP Response: Reason for Termination: INFUSION COMPLETE,Target HR Cardiac Symptoms: NO SYMPTOMS ECG Analysis Resting EKG: Stress EKG: Arrhythmia: Echo Analysis Base Echo Analysis: Low Echo Anaylsis: Peak Echo Analysis: Recovery Echo: MEASUREMENTS (Male/Female) Normal Values CONCLUSIONS Baseline EKG revealed a normal sinus rhythm. With the dobutamine administration the heart rate went up to 141 bpm. Patient did not have any significant symptoms there were no EKG changes to suggest ischemia. There was no significant arrhythmia. By EKG criteria this is a unremarkable dobutamine stress test Baseline echo images revealed normal wall motion wall thickening. Echo contrast was used to enhance the quality of images. With the dobutamine administration that was progressive increase in contractility noted in all segments suggesting that there is no evidence of any dobutamine-induced ischemia on this study. Final impression: Normal dobutamine stress test by EKG criteria without any ischemic changes. Normal dobutamine stress echo without evidence of ischemia Dr. Cathy David MD (Electronically Signed) Final Date: 08 March 2023 10:49
--- NOTE | 2023-03-08 14:11 | P.DS ---
Providers Date of admission: 03/06/23 14:42 Expected date of discharge: 03/08/23 Attending physician: Td Layton MD Consults: 03/06/23 14:41 Consult Physician Urgent Consulting Provider: Brendon Marte Consult Reason/Comments: chest pain Do you want consulting provider notified?: Yes Primary care physician: [facility] Hospital Course: Patient is a 57-year-old female with PMH of asthma, depression, seasonal ALLERGIES, hypothyroidism, thyroid nodule that presents the ED for chest pain. Patient reports chest pain that started intermittently last night. Her pain la night was described as sharp shooting type pain over the right side of the chest. She took 4 aspirins. Patient was able to sleep through the night and woke up this morning feeling well. One hour prior to arrival, patient started to experience pressure-like pain in her left chest radiating to the left jaw. She took nitroglycerin which relieved the pain from a 4-10 to a 2 out of 10 severity. She does report smoking half pack of cigarettes daily. No history of [place] or CVA. Chest pain was associated with shortness of breath. No relation to movement or palpation. This prompted her to come to the ED. In the ED, she was noted to be hypertensive with BP of 164/116. CBC was unremarkable. Coagulation panel negative. D-dimer 0.39. CMP showed glucose of 1:15. Initial troponin less than 0.012. BNP 178. EKG showed normal sinus rhythm with ventricular rate of 82. Chest x-ray negative for acute disease. Patient is admitted for chest pain, rule out acute coronary syndrome with cardiology consultation. 03/07 Patient was seen and examined. No acute events overnight. She denies any chest pain, SOB or palpitations. Troponins have been negative x 3. CBC and BMP unremarkable. Cardiology consulted, plans for stress test tomorrow. 03/08 Patient was seen and examined. She reports no chest pain. Underwent stress test which was negative. Echocardiogram shows EF of 55-60% with mild mitral and tricuspid regurgitation. Patient was cleared from a cardiology perspective. Pertinent studies as above. General: non toxic, no distress, appears at stated age, obese Derm: warm, dry Head: atraumatic, normocephalic, symmetric Eyes: EOMI, no lid lag, anicteric sclera Cardiovascular: S1S2 reg, no murmur Lungs: CTA bilateral, no rhonchi, no rales , no accessory muscle use Ext: no gross muscle atrophy, no edema, no contractures Neuro: no focal neuro deficits Psych: Alert, oriented, appropriate affect Discharge diagnosis: Chest pain Elevated BP without the diagnosis of hypertension Smoker Obesity with BMI 44.2 Chronic conditions: Asthma, depression, seasonal ALLERGIES, hypothyroidism, thyroid nodule This complex discharge took 35 minutes to complete. Patient Condition at Discharge: Stable Plan - Discharge Summary Discharge Rx Participant: No New Discharge Prescriptions: Continue FLUoxetine HCL [PROzac] 20 mg PO HS Albuterol Sulfate [Proair Hfa] 2 puff INHALATION RT-Q6H PRN PRN Reason: Shortness Of Breath Levothyroxine Sodium [Synthroid] 75 mcg PO DAILY Montelukast Sodium [Singulair] 10 mg PO HS Progesterone, Micronized [Progesterone] 200 mg PO HS Fexofenadine HCl [Krys Allergy] 180 mg PO DAILY Discharge Medication List FLUoxetine HCL [PROzac] 20 mg PO HS 10/17/17 [History] Albuterol Sulfate [Proair Hfa] 2 puff INHALATION RT-Q6H PRN 11/24/17 [History] Levothyroxine Sodium [Synthroid] 75 mcg PO DAILY 06/19/20 [History] Montelukast Sodium [Singulair] 10 mg PO HS 01/07/21 [History] Fexofenadine HCl [Krys Allergy] 180 mg PO DAILY 03/06/23 [History] Progesterone, Micronized [Progesterone] 200 mg PO HS 03/06/23 [History] Follow up Appointment(s)/Referral(s): Brendon Marte MD [STAFF PHYSICIAN] - 1 Week (Office will call with appointment time and date.) Nehemiah Fuller MD [Primary Care Provider] - 1-2 days Patient Instructions/Handouts: Chest Pain (DC) Discharge Disposition: HOME SELF-CARE
== END 2023-03-08 12:03 | disposition home or self-care (01) ==
LOC: EC 13:07 → 6NMEDSUR 14:42
PROVIDERS: ADMIT Family Medicine; ATTEND Family Medicine
DX: R07.9 Chest pain, unspecified (principal); R03.0 Elevated blood-pressure reading, without diagnosis of hypertension; J45.909 Unspecified asthma, uncomplicated; K21.9 Gastro-esophageal reflux disease without esophagitis; E78.5 Hyperlipidemia, unspecified; G43.909 Migraine, unspecified, not intractable, without status migrainosus; F32.A Depression, unspecified; E03.9 Hypothyroidism, unspecified; E04.1 Nontoxic single thyroid nodule; E66.9 Obesity, unspecified; F17.210 Nicotine dependence, cigarettes, uncomplicated; Z68.41 Body mass index [BMI] 40.0-44.9, adult; Z79.890 Hormone replacement therapy; Z79.51 Long term (current) use of inhaled steroids; Z79.899 Other long term (current) drug therapy; Z88.5 Allergy status to narcotic agent; Z82.49 Family history of ischemic heart disease and other diseases of the circulatory system
CPT/HCPCS: 96372 ×2; 96376 ×2; 96374; 99285; 36415; 94760; 93005; 93306; 93351; 85379; 83880; 80061; 80053 ×2; 83735; 84484 ×2; 85025 ×2; 85610; 85730; 83036; 71046; G0378 ×3; J1250; J2270 ×3; J1650 ×2; Q9950

== ENCOUNTER 2023-03-16 16:18 | Emergency (ER) | payer MEDICAID ==
[2023-03-16 16:31] VITALS: TEMP 98.8
[2023-03-16 17:08] LABS: Basophils % (A) 0 %; Eosinophils # (A) 0.2 k/uL (0-0.7); Eosinophils % (A) 3 %; HCT 43.9 % (34.0-46.0); HGB 14.2 gm/dL (11.4-16.0); Lymphocytes # (A) 2.1 k/uL (1.0-4.8); Lymphocytes % (A) 24 %; MCH 29.5 pg (25.0-35.0); MCHC 32.3 g/dL (31.0-37.0); MCV 91.6 fL (80.0-100.0); Mean Platelet Volume 7.9; Monocytes # (A) 0.5 k/uL (0-1.0); Monocytes % (A) 6 %; Neutrophils # (A) 5.8 k/uL (1.3-7.7); Neutrophils % (A) 66 %; Platelet Count 344 k/uL (150-450); RBC 4.79 m/uL (3.80-5.40); RDW 12.8 % (11.5-15.5); WBC 8.8 k/uL (3.8-10.6)
[2023-03-16] MEDS ORDERED: NITROGLYCERIN SL TABS 0.4 MG TAB SUBLINGUAL STA (17:10)
--- NOTE | 2023-03-16 17:14 | XR ---
EXAMINATION TYPE: XR chest 2V DATE OF EXAM: 03/16/2023 COMPARISON: 03/06/2023 INDICATION: Chest pain TECHNIQUE: Frontal and lateral views of the chest are obtained. FINDINGS: The heart size is normal. The pulmonary vasculature is normal. The lungs are clear. IMPRESSION: 1. No acute pulmonary process.
[2023-03-16 17:19] LABS: INR 0.9 (<1.2); Partial Thromboplastin Time 23.9 sec (22.0-30.0); Prothrombin Time 9.7 sec (9.0-12.0)
[2023-03-16 17:21] LABS: ALT 33 U/L (4-34); African American GFR (CKD) >90 (>60 ml/min/1.73 sqM); Albumin 3.9 g/dL (3.5-5.0); Anion Gap 9 mmol/L; Blood Urea Nitrogen 11 mg/dL (7-17); Calcium 8.7 mg/dL (8.4-10.2); Carbon Dioxide 19 mmol/L (22-30); Chloride 110 mmol/L (98-107); Glucose 104 mg/dL (74-99); Non-African American GFR(CKD) 78 (>60 ml/min/1.73 sqM); Sodium 138 mmol/L (137-145); Total Bilirubin 0.5 mg/dL (0.2-1.3)
[2023-03-16 17:29] LABS: AST 42 U/L (14-36); Alkaline Phosphatase 92 U/L (38-126); Magnesium 2.2 mg/dL (1.6-2.3); Potassium 4.2 mmol/L (3.5-5.1)
[2023-03-16 18:58] LABS: T4, Free (Free Thyroxine) 1.14 ng/dL (0.78-2.19)
--- NOTE | 2023-03-16 19:11 | ED ---
General Adult HPI - General Chief complaint: Chest Pain Stated complaint: Chest Pain Time Seen by Provider: 03/16/23 16:21 Source: EMS Mode of arrival: EMS Limitations: no limitations - History of Present Illness Initial comments: This is a 57-year-old female with a past medical history including an initial doses and hypertension presents emergency department for left sided chest pain. The patient presented via EMS for this chest pain. The patient described the pain as lasting over the last 4 hours and not improving. The patient did state that she was given 2 doses of sublingual nitroglycerin by EMS and stated that her chest pain was significantly improved. The patient did state that she was admitted to the hospital last week for similar chest pain and had a workup including a negative stress test and was sent home. The patient was told to christina gudino to take some nitroglycerin however was not prescribed any medications. The patient does have a follow-up with her primary care physician tomorrow. The patient denied any lightheadedness, dizziness, nausea, vomiting nor diaphoresis. The patient was resting in bed comfortably without any further distress noted at this time. - Related Data Home Medications Medication Instructions Recorded Confirmed FLUoxetine HCL [PROzac] 20 mg PO HS 10/17/17 03/16/23 Albuterol Sulfate [Proair Hfa] 2 puff INHALATION RT-Q6H PRN 11/24/17 03/16/23 Levothyroxine Sodium [Synthroid] 75 mcg PO DAILY 06/19/20 03/16/23 Montelukast Sodium [Singulair] 10 mg PO HS 01/07/21 03/16/23 Fexofenadine HCl [Krys Allergy] 180 mg PO DAILY 03/06/23 03/16/23 Progesterone, Micronized 200 mg PO HS 03/06/23 03/16/23 [Progesterone] Allergies Allergy/AdvReac Type Severity Reaction Status Date / Time hydromorphone [From Dilaudid] Allergy Severe Verified 03/16/23 18:30 Vomiting adhesive tape AdvReac Itching, Verified 03/16/23 18:30 RED SKIN atorvastatin [From Lipitor] AdvReac Severe Verified 03/16/23 18:30 joint pain ezetimibe [From Zetia] AdvReac Severe Verified 03/16/23 18:30 joint pain Review of Systems ROS Statement: Those systems with pertinent positive or pertinent negative responses have been documented in the HPI. ROS Other: All systems not noted in ROS Statement are negative. Past Medical History Past Medical History: Asthma, GERD/Reflux, Hyperlipidemia, Pneumonia, Thyroid Disorder Additional Past Medical History / Comment(s): states has had "choking feeling" recent diagnosed with benign thyroid nodules, NECK PAIN spurs on CSpine, KYLE OMARI, OCCASIONAL SVT- STATES HX OF 2ND DEGREE HEART BLOCK WHEN HER BLOOD PRESSURE GOES LOW. SHORTNESS OF BREATH WITH EXERTION , HIATAL HERNIA History of Any Multi-Drug Resistant Organisms: None Reported Past Surgical History: Breast Surgery, Cholecystectomy, Heart Catheterization, Orthopedic Surgery, Tonsillectomy Additional Past Surgical History / Comment(s): thyroid nodule bx, LEFT OVARY & TUBE REMOVED 2000. Multiple laparoscopy is for endometriosis, HEART CATH (2013). Colonoscopy . Left lower arm bone reduction surgery Past Anesthesia/Blood Transfusion Reactions: Previous Problems w/ Anesthesia Additional Past Anesthesia/Blood Transfusion Reaction / Comment(s): STATES severe projectile vomiting WITH DILAUDID. STATES HX OF SVT AND 2ND DEGREE HEART BLOCK WHEN BP DROPS LOW. Past Psychological History: Depression Smoking Status: Current every day smoker Past Alcohol Use History: Rare Past Drug Use History: None Reported - Past Family History Mother Family Medical History: Cancer Additional Family Medical History / Comment(s): OF COLON RECTAL CANCER. 2 maternal aunts had breast cancer. Both grandmothers had an HI. Father Family Medical History: Cancer, Congestive Heart Failure (CHF), COPD Additional Family Medical History / Comment(s): SKIN CANCER Brother(s) Family Medical History: Cancer Additional Family Medical History / Comment(s): TUMOR AROUND JUGULAR WITH METS. Another brother had an HI. General Exam Limitations: no limitations General appearance: alert, in no apparent distress, obese Head exam: Present: atraumatic, normocephalic, normal inspection Eye exam: Present: normal appearance, PERRL Pupils: Present: normal accommodation ENT exam: Present: normal exam, normal oropharynx, mucous membranes moist Neck exam: Present: normal inspection, full ROM Respiratory exam: Present: normal lung sounds bilaterally Cardiovascular Exam: Present: regular rate, normal rhythm, normal heart sounds GI/Abdominal exam: Present: soft, normal bowel sounds Extremities exam: Present: normal inspection, full ROM Back exam: Present: normal inspection, full ROM Neurological exam: Present: alert, oriented X3, CN II-XII intact Psychiatric exam: Present: normal affect, normal mood Skin exam: Present: warm, dry Course Vital Signs 03/16/23 16:22 Temperature 98.8 F Pulse Rate 81 Respiratory 20 Rate Blood Pressure 143/97 O2 Sat by Pulse 95 Oximetry EKG Findings - EKG Comments: EKG Findings:: An EKG was obtained and was interpreted by myself showing a rate of 84, MI interval 161, QRS duration 96 and QTC of 422. This EKG showed a normal sinus rhythm with no ST segment elevation or depression noted. Medical Decision Making - Medical Decision Making Was pt. sent in by a medical professional or institution (, HARJIT, CIVIL PREPAREDNESS COORDINATOR, urgent care, hospital, or senior care...) When possible be specific @ -No Did you speak to anyone other than the patient for history (EMS, parent, family, police, friend...)? What history was obtained from this source @ -No Did you review nursing and triage notes (agree or disagree)? Why? @ -I reviewed and agree with nursing and triage notes Were old charts reviewed (outside hosp., previous admission, EMS record, old EKG, old radiological studies, urgent care reports/EKG's, senior care records)? Report findings @ -No old charts were reviewed Differential Diagnosis (chest pain, altered mental status, abdominal pain women, abdominal pain men, vaginal bleeding, weakness, fever, dyspnea, syncope, headache, dizziness, GI bleed, back pain, seizure, CVA, palpatations, mental health)? @ -ACS, pneumonia, pneumothorax, angina EKG interpreted by me (3pts min.). @ -As above X-rays interpreted by me (1pt min.). @ -Chest x-ray was obtained and was interpreted by myself showing no acute process. CT interpreted by me (1pt min.). @ -None done U/S interpreted by me (1pt. min.). @ -None done What testing was considered but not performed or refused? (CT, X-rays, U/S, labs)? Why? @ -None What meds were considered but not given or refused? Why? @ -None Did you discuss the management of the patient with other professionals (p rofessionals i.e. , PA, CIVIL PREPAREDNESS COORDINATOR, lab, RT, psych nurse, dialysis social worker, measurement superintendent, teacher, chief supply chain officer, rn case mgr)? Give summary @ -No Was smoking cessation discussed for >3mins.? @ -Yes Was critical care preformed (if so, how long)? @ -No Were there social determinants of health that impacted care today? How? (Homelessness, low income, unemployed, alcoholism, drug addiction, transpo rtation, low edu. Level, literacy, decrease access to med. care, retirement, rehab)? @ -No Was there de-escalation of care discussed even if they declined (Discuss DNR or withdrawal of care, Hospice)? DNR status @ -No What co-morbidities impacted this encounter? (DM, HTN, Smoking, COPD, CAD, Cancer, CVA, ARF, Chemo, Hep., AIDS, mental health diagnosis, sleep apnea, morbid obesity)? @ -Hypertension, thyroid nodule, endometriosis Was patient admitted / discharged? Hospital course, mention meds given and route, prescriptions, significant lab abnormalities, going to OR and other pertinent info. @ -The patient was seen and evaluated in the emergency department. Physical exam, the patient was resting in bed without any acute distress. Vital signs admission were stable. Due to the nature of the patient's complaints, laboratory workup was obtained as is a chest x-ray and EKG. All workup was negative. While the patient was in the emergency department, the patient initially had no chest pain but stated that her chest pain was now a 4/10 and did request; nitroglycerin. The patient was given a dose here in the emergency department and a reevaluation had complete resolution of her chest pain. The patient's workup was complete negative and the patient was told of this. The patient did state that she wanted to go home to follow-up with her primary care physician in the morning as well as a hand method lasting machine operator later in the week. The patient was offered to stay once again in the hospital under observation but stated that she wanted to go home instead. The patient was advised to follow back in the emergency department if she had worsening chest pain or shortness of breath or difficulty in breathing. The patient was agreeable to this and all of her questions were answered appropriate. The patient was discharged home in stable condition. Undiagnosed new problem with uncertain prognosis? @ -No Drug Therapy requiring intensive monitoring for toxicity (Heparin, Nitro, Insulin, Cardizem)? @ -No Were any procedures done? @ -No Diagnosis/symptom? @ -Chest pain, NOS likely angina Acute, or Chronic, or Acute on Chronic? @ -Acute on chronic Uncomplicated (without systemic symptoms) or Complicated (systemic symptoms)? @ -Uncomplicated Side effects of treatment? @ -No Exacerbation, Progression, or Severe Exacerbation? @ -No Poses a threat to life or bodily function? How? (Chest pain, [place], HI, pneumonia, PE, COPD, DKA, ARF, appy, cholecystitis, CVA, Diverticulitis, Homicidal, Suicidal, threat to staff... and all critical care pts) @ -No - Lab Data Result diagrams: 03/16/23 16:57 03/16/23 16:57 Lab Results 03/16/23 03/16/23 03/16/23 Range/Units 16:57 16:57 16:57 WBC 8.8 (3.8-10.6) k/uL RBC 4.79 (3.80-5.40) m/uL Hgb 14.2 (11.4-16.0) gm/dL Hct 43.9 (34.0-46.0) % MCV 91.6 (80.0-100.0) fL MCH 29.5 (25.0-35.0) pg MCHC 32.3 (31.0-37.0) g/dL RDW 12.8 (11.5-15.5) % Plt Count 344 (150-450) k/uL MPV 7.9 Neutrophils % 66 % Lymphocytes % 24 % Monocytes % 6 % Eosinophils % 3 % Basophils % 0 % Neutrophils # 5.8 (1.3-7.7) k/uL Lymphocytes # 2.1 (1.0-4.8) k/uL Monocytes # 0.5 (0-1.0) k/uL Eosinophils # 0.2 (0-0.7) k/uL Basophils # 0.0 (0-0.2) k/uL PT 9.7 (9.0-12.0) sec INR 0.9 (<1.2) APTT 23.9 (22.0-30.0) sec Sodium 138 (137-145) mmol/L Potassium 4.2 (3.5-5.1) mmol/L Chloride 110 H (98-107) mmol/L Carbon Dioxide 19 L (22-30) mmol/L Anion Gap 9 mmol/L BUN 11 (7-17) mg/dL Creatinine 0.84 (0.52-1.04) mg/dL Est GFR (CKD-EPI)AfAm >90 (>60 ml/min/1.73 sqM) Est GFR (CKD-EPI)NonAf 78 (>60 ml/min/1.73 sqM) Glucose 104 H (74-99) mg/dL Calcium 8.7 (8.4-10.2) mg/dL Magnesium 2.2 (1.6-2.3) mg/dL Total Bilirubin 0.5 (0.2-1.3) mg/dL AST 42 H (14-36) U/L ALT 33 (4-34) U/L Alkaline Phosphatase 92 (38-126) U/L Troponin I (0.000-0.034) ng/mL NT-Pro-B Natriuret Pep pg/mL Total Protein 7.0 (6.3-8.2) g/dL Albumin 3.9 (3.5-5.0) g/dL TSH 0.234 L (0.465-4.680) mIU/L Free T4 1.14 (0.78-2.19) ng/dL 03/16/23 03/16/23 Range/Units 16:57 16:57 WBC (3.8-10.6) k/uL RBC (3.80-5.40) m/uL Hgb (11.4-16.0) gm/dL Hct (34.0-46.0) % MCV (80.0-100.0) fL MCH (25.0-35.0) pg MCHC (31.0-37.0) g/dL RDW (11.5-15.5) % Plt Count (150-450) k/uL MPV Neutrophils % % Lymphocytes % % Monocytes % % Eosinophils % % Basophils % % Neutrophils # (1.3-7.7) k/uL Lymphocytes # (1.0-4.8) k/uL Monocytes # (0-1.0) k/uL Eosinophils # (0-0.7) k/uL Basophils # (0-0.2) k/uL PT (9.0-12.0) sec INR (<1.2) APTT (22.0-30.0) sec Sodium (137-145) mmol/L Potassium (3.5-5.1) mmol/L Chloride (98-107) mmol/L Carbon Dioxide (22-30) mmol/L Anion Gap mmol/L BUN (7-17) mg/dL Creatinine (0.52-1.04) mg/dL Est GFR (CKD-EPI)AfAm (>60 ml/min/1.73 sqM) Est GFR (CKD-EPI)NonAf (>60 ml/min/1.73 sqM) Glucose (74-99) mg/dL Calcium (8.4-10.2) mg/dL Magnesium (1.6-2.3) mg/dL Total Bilirubin (0.2-1.3) mg/dL AST (14-36) U/L ALT (4-34) U/L Alkaline Phosphatase (38-126) U/L Troponin I <0.012 (0.000-0.034) ng/mL NT-Pro-B Natriuret Pep 68 pg/mL Total Protein (6.3-8.2) g/dL Albumin (3.5-5.0) g/dL TSH (0.465-4.680) mIU/L Free T4 (0.78-2.19) ng/dL Disposition Clinical Impression: Chest pain Disposition: HOME SELF-CARE Condition: Stable Instructions (If sedation given, give patient instructions): Chest Pain (ED) Is patient prescribed a controlled substance at d/c from ED?: No Referrals: Nehemiah Fuller MD [Primary Care Provider] - 1-2 days Time of Disposition: 19:00
[2023-03-16 19:26] VITALS: BP 191/104; PULSE 63; RESP 18
== END 2023-03-16 19:26 | disposition home or self-care (01) ==
LOC: EC 16:18
DX: R07.89 Other chest pain (principal); E78.5 Hyperlipidemia, unspecified; F32.A Depression, unspecified; I10 Essential (primary) hypertension; J45.909 Unspecified asthma, uncomplicated; K21.9 Gastro-esophageal reflux disease without esophagitis; E07.9 Disorder of thyroid, unspecified; F17.200 Nicotine dependence, unspecified, uncomplicated; Z79.890 Hormone replacement therapy; Z79.899 Other long term (current) drug therapy; Z88.5 Allergy status to narcotic agent; Z88.8 Allergy status to other drugs, medicaments and biological substances
CPT/HCPCS: 36415; 71046; 80053; 83735; 83880; 84439; 84443; 84484; 85025; 85610; 85730; 93005; 99285

== ENCOUNTER → 2023-03-18 | Outpatient (CLI) | payer MEDICAID ==
--- NOTE | 2023-03-18 16:12 | CT ---
EXAMINATION TYPE: CT angio chest CT DLP: 566.30 mGycm, Automated exposure control for dose reduction was used. DATE OF EXAM: 03/18/2023 3:55 PM COMPARISON: Chest radiograph from 03/16/2022. CLINICAL INDICATION:Female, 57 years old with history of R07.9, H53.9; chest pain and discomfort up t o the neck TECHNIQUE/CONTRAST: CTA scan of the thorax is performed with IV Contrast, patient injected with 80 mL of Isovue 370, pulm onary embolism protocol. MIP images are created and reviewed these are created on a separate worksta tion.. FINDINGS: Pulmonary Artery: There is no evidence for a filling defect within the pulmonary vasculature to sugge st acute pulmonary embolism. The pulmonary artery is of normal size. Lungs/Pleura: No evidence of focal consolidation, pleural effusion or pneumothorax. Airway: Large airways are patent. Heart: Heart is within normal limits for size. Vasculature: No evidence of aortic aneurysm. Mediastinum: No gross evidence of adenopathy. Musculoskeletal: No acute osseous abnormalities Soft Tissues: Unremarkable. Lower neck: No significant findings. Upper Abdomen: No significant findings. IMPRESSION: No evidence of pulmonary embolism.
--- NOTE | 2023-03-18 20:00 | US ---
EXAMINATION TYPE: US carotid duplex BILAT DATE OF EXAM: 03/18/2023 COMPARISON: NONE CLINICAL INDICATION: Female, 57 years old with history of H53.9 UNSPECIFIED VISUAL DISTURBANCE; Left sided chest/neck pressure and pain. Hx smoker. Visual disturbances*. TECHNIQUE: Carotid duplex ultrasound examination. Indirect Doppler criteria was utilized. FINDINGS: EXAM MEASUREMENTS: RIGHT: Peak Systolic Velocity (PSV) cm/sec ----- Right CCA: 98.6 ----- Right ICA: 103 ----- Right ECA: 82.4 ICA/CCA ratio: 1.04 RIGHT: End Diastole cm/sec ----- Right CCA: 26.7 ----- Right ICA: 31.5 ----- Right ECA: 13.6 LEFT: Peak Systolic Velocity (PSV) cm/sec ----- Left CCA: 89.1 ----- Left ICA: 95.0 ----- Left ECA: 54.7 ICA/CCA ratio: 1.07 LEFT: End Diastole cm/sec ----- Left CCA: 30.3 ----- Left ICA: 38.3 ----- Left ECA: 7.5 VERTEBRALS (direction of flow): Right Vertebral: Antegrade Left Vertebral: Antegrade Rhythm: Normal BARREL RAISER HELPER NOTES: No elevated velocities at this time. Intimal thickening seen bilaterally. IMPRESSION: Less than 50% stenosis of the bilateral carotid bifurcations. Criteria for Assigning % of Stenosis / Diameter reduction (Estimation based on the indirect measurements of the internal carotid artery velocities (ICA PSV). 1. Normal (no stenosis)=ICA PSV < 125 cm/s: ratio < 2.0: ICA EDV<40 cm/s. 2. Less than 50% stenosis=ICA PSV < 125 cm/s: ratio < 2.0: ICA EDV<40 cm/s. 3. 50 to 69% stenosis=ICA PSV of 125 to 230 cm/s: ration 2.0 ? 4.0: ICA EDV 40-100 cm/s. 4. Greater than 70% stenosis to near occlusion= ICA PSV > 230 cm/s: ratio > 4.0: ICA EDV > 100 cm/s. 5. Near occlusion= ICA PSV velocities may be low or undetectable: variable ratio and ICA EDV. 6. Total occlusion=unable to detect flow.
== END | disposition home or self-care (01) ==
LOC: RADCTMAIN 15:29
PROVIDERS: ATTEND Family Medicine
DX: I65.23 Occlusion and stenosis of bilateral carotid arteries (principal); H53.9 Unspecified visual disturbance; R07.9 Chest pain, unspecified; Z87.891 Personal history of nicotine dependence
CPT/HCPCS: 93880; 71275; Q9967

== ENCOUNTER 2023-03-24 12:40 | Day surgery (SDC) | payer MEDICAID ==
[2023-03-24 13:27] VITALS: BP 160/95; PULSE 81; RESP 16; TEMP 97.9
[2023-03-24] MEDS ORDERED: ALPRAZolam 0.5 MG TAB PO STA (13:37)
--- NOTE | 2023-03-24 14:59 | US ---
ULTRASOUND GUIDED FNA THYROID BIOPSY: CLINICAL HISTORY: Request for greater than 1 cm right thyroid FINDINGS: The procedure was explained to the patient. The risks, complications, benefits and alternatives were discussed and any questions were answered. Informed consent was obtained. Patient was placed supin e on the ultrasound table and prepped and draped in the usual sterile fashion. Utilizing a 25 gauge needle, five passes were made into the requested predominantly cystic nodule within the right thyroid measuring 1.9 cm. Note is made that the 1.1 x 1.0 x 0.5 cm nodule now measures less than a centimete r in all dimensions and was not accessible for biopsy.. Patient was stable throughout the procedure. Pathology is pending. All elements of maximal barrier technique were utilized. IMPRESSION: 1. Successful ultrasound guided FNA thyroid biopsy. Note is made the majority of the lesion was flui d-filled\ cystic which may lower the diagnostic yield.
== END 2023-03-24 14:50 | disposition home or self-care (01) ==
LOC: RADPROMAIN 12:40
PROVIDERS: ATTEND Family Medicine
DX: E04.1 Nontoxic single thyroid nodule (principal)
CPT/HCPCS: 10005; 88173; 88305

== ENCOUNTER → 2023-07-28 | Outpatient (CLI) | payer MEDICAID ==
[2023-07-28 21:58] LABS: BUN/Creat Ratio 12.56 Ratio (12.00-20.00); Blood Urea Nitrogen 11.3 mg/dL (9.0-27.0); Carbon Dioxide 22.7 mmol/L (21.6-31.8); Chloride 105 mmol/L (96-109); Glucose 113 mg/dL (70-110); Potassium 4.4 mmol/L (3.5-5.5); Sodium 139 mmol/L (135-145); T4, Free (Free Thyroxine) 1.07 ng/dL (0.80-1.80)
== END | disposition home or self-care (01) ==
LOC: LABWHC1 12:41
PROVIDERS: ATTEND Internal Medicine
DX: E03.9 Hypothyroidism, unspecified (principal); E55.9 Vitamin D deficiency, unspecified
CPT/HCPCS: 36415; 80048; 82306; 84439; 84443

== ENCOUNTER 2023-12-10 14:38 | Observation (INO) | payer MEDICAID ==
--- NOTE | 2023-12-10 15:37 | XR ---
EXAMINATION TYPE: XR chest 2V DATE OF EXAM: 12/10/2023 COMPARISON: 28/12/2022 TECHNIQUE: PA and lateral views submitted. HISTORY: Shortness of breath FINDINGS: The lungs are clear and there is no pneumothorax, pleural effusion, or focal pneumonia. Heart size normal and no overt failure. Osseous structures demonstrate hypertrophic and degenerative changes of the spine. IMPRESSION: 1. No acute process.
--- NOTE | 2023-12-10 15:47 | ED ---
SOB HPI - General Chief Complaint: Shortness of Breath Stated Complaint: SOB Time Seen by Provider: 12/10/23 15:32 Source: patient Mode of arrival: ambulatory Limitations: no limitations - History of Present Illness Initial Comments: This patient is 58-year-old woman with history of asthma who states that she has been having flare of symptoms since Wednesday, including cough with occasional brown sputum, wheezing, and shortness of breath. The patient states that she was seen in the clinic and on Wednesday started steroids and doxycycline. Has not noted improvement yet. The patient does not use home oxygen. She has not noted fever or chills. No chest pain. No leg pain or swelling. No change in urination or bowel movements. MD Complaint: shortness of breath, cough Onset/Timin -: days(s) Consistency: constant Improves With: nothing Worsens With: nothing Known History Of: asthma Context: recent URI Associated Symptoms: cough, sputum production Treatments Prior to Arrival: bronchodilator, other - Related Data Home Oxygen Therapy: No Home Medications Medication Instructions Recorded Confirmed FLUoxetine HCL [PROzac] 20 mg PO HS 10/17/17 12/10/23 Montelukast Sodium [Singulair] 10 mg PO HS 01/07/21 12/10/23 Losartan [Cozaar] 50 mg PO HS 05/11/23 12/10/23 Nitroglycerin Sl Tabs [Nitrostat] 0.4 mg SL Q5M PRN 05/11/23 12/10/23 Isosorbide Mononitrate ER [Imdur] 30 mg PO DAILY 06/08/23 12/10/23 Rosuvastatin [Crestor] 10 mg PO HS 06/08/23 12/10/23 Albuterol Sulfate [Proventil Hfa] 2 puff INHALATION RT-Q4H PRN 12/10/23 12/10/23 Cetirizine HCl [Zyrtec] 10 mg PO HS 12/10/23 12/10/23 Doxycycline Hyclate 100 mg PO Q12H 12/10/23 12/10/23 Ergocalciferol [Vitamin D2 (1250 1,250 mcg PO CHICAS 12/10/23 12/10/23 Mcg = 52889 Iu)] Ipratropium-Albuterol Nebulize 3 ml INHALATION RT-Q4H PRN 12/10/23 12/10/23 [Duoneb 0.5 mg-3 mg/3 ml Soln] Promethazine/Dextromethorphan 5 ml PO Q4H PRN 12/10/23 12/10/23 [Promethazine-Dm Syrup] predniSONE 50 mg PO DAILY 12/10/23 12/10/23 Allergies Allergy/AdvReac Type Severity Reaction Status Date / Time hydromorphone [From Dilaudid] Allergy Severe Verified 12/10/23 14:43 Vomiting adhesive tape AdvReac Itching, Verified 12/10/23 14:43 RED SKIN atorvastatin [From Lipitor] AdvReac Severe Verified 12/10/23 14:43 joint pain ezetimibe [From Zetia] AdvReac Severe Verified 12/10/23 14:43 joint pain Review of Systems ROS Statement: Those systems with pertinent positive or pertinent negative responses have been documented in the HPI. ROS Other: All systems not noted in ROS Statement are negative. Constitutional: Denies: fever, chills, weakness Respiratory: Reports: cough, dyspnea, wheezes, hemoptysis. Denies: stridor Cardiovascular: Denies: chest pain, palpitations, orthopnea, edema, syncope Gastrointestinal: Denies: abdominal pain, vomiting, diarrhea, melena, hematochezia Genitourinary: Denies: dysuria, hematuria Musculoskeletal: Denies: back pain Skin: Denies: rash Neurological: Denies: headache, weakness Past Medical History Past Medical History: Asthma, Chest Pain / Angina, GERD/Reflux, Hyperlipidemia, Hypertension, Pneumonia, Thyroid Disorder Additional Past Medical History / Comment(s): states has had "choking feeling" recent diagnosed with benign thyroid nodules, NECK PAIN spurs on CSpine, MIGRAINES, OCCASIONAL SVT- STATES HX OF 2ND DEGREE HEART BLOCK WHEN HER BLOOD PRESSURE GOES LOW. SHORTNESS OF BREATH WITH EXERTION , HIATAL HERNIA History of Any Multi-Drug Resistant Organisms: None Reported Past Surgical History: Breast Surgery, Cholecystectomy, Heart Catheterization, Orthopedic Surgery, Tonsillectomy Additional Past Surgical History / Comment(s): thyroid nodule bx, LEFT OVARY & TUBE REMOVED 2000. Multiple laparoscopy is for endometriosis, HEART CATH (2013). Colonoscopy . Left lower arm bone reduction surgery, D & C Past Anesthesia/Blood Transfusion Reactions: Previous Problems w/ Anesthesia Additional Past Anesthesia/Blood Transfusion Reaction / Comment(s): STATES severe projectile vomiting WITH DILAUDID. STATES HX OF SVT AND 2ND DEGREE HEART BLOCK WHEN BP DROPS LOW. Past Psychological History: Depression Smoking Status: Current every day smoker - Past Family History Mother Family Medical History: Cancer Additional Family Medical History / Comment(s): OF COLON RECTAL CANCER. 2 maternal aunts had breast cancer. Both grandmothers had an SD. Father Family Medical History: Cancer, Congestive Heart Failure (CHF), COPD Additional Family Medical History / Comment(s): SKIN CANCER Brother(s) Family Medical History: Cancer Additional Family Medical History / Comment(s): TUMOR AROUND JUGULAR WITH METS. Another brother had an SD. 2ND BROTHER WITH CANCER General Exam Limitations: no limitations General appearance: alert, in no apparent distress Head exam: Present: atraumatic, normocephalic Eye exam: Present: normal appearance. Absent: scleral icterus, conjunctival injection Neck exam: Present: normal inspection Respiratory exam: Present: wheezes. Absent: rales, rhonchi, stridor, accessory muscle use, decreased breath sounds Cardiovascular Exam: Present: normal rhythm, tachycardia, normal heart sounds. Absent: systolic murmur, diastolic murmur, rubs, gallop GI/Abdominal exam: Present: soft. Absent: distended, tenderness, guarding, rebound, rigid, mass, pulsatile mass Extremities exam: Present: normal inspection, normal capillary refill. Absent: pedal edema, calf tenderness Back exam: Present: normal inspection. Absent: CVA tenderness (R), CVA tenderness (L) Neurological exam: Present: alert Skin exam: Present: warm, dry, intact, normal color. Absent: rash Course Vital Signs 12/10/23 12/10/23 12/10/23 14:40 16:11 16:27 Temperature 97.9 F Pulse Rate 108 H 84 83 Respiratory 20 24 24 Rate Blood Pressure 153/89 134/87 O2 Sat by Pulse 98 98 Oximetry 12/10/23 12/10/23 12/10/23 16:40 17:00 18:00 Temperature Pulse Rate 88 93 78 Respiratory 24 22 20 Rate Blood Pressure 134/87 152/74 O2 Sat by Pulse 96 94 L Oximetry 12/10/23 12/10/23 12/10/23 18:02 18:12 19:00 Temperature Pulse Rate 99 75 81 Respiratory 24 20 20 Rate Blood Pressure 124/72 O2 Sat by Pulse 96 Oximetry 12/10/23 12/10/23 12/10/23 19:32 19:42 21:46 Temperature Pulse Rate 82 85 77 Respiratory 18 Rate Blood Pressure 169/99 O2 Sat by Pulse 95 Oximetry Medical Decision Making - Medical Decision Making The patient had chest x-ray that I interpreted as negative for acute infiltrate, pneumothorax, congestive heart failure Was pt. sent in by a medical professional or institution (, PA, ROLLER MAN, urgent care, hospital, or skilled nursing...) When possible be specific @ -[No] Did you speak to anyone other than the patient for history (EMS, parent, family, police, friend...)? What history was obtained from this source @ -[No] Did you review nursing and triage notes (agree or disagree)? Why? @ -[I reviewed and agree with nursing and triage notes] Were old charts reviewed (outside hosp., previous admission, EMS record, old EKG, old radiological studies, urgent care reports/EKG's, skilled nursing records)? Report findings @ -[No old charts were reviewed] Differential Diagnosis (chest pain, altered mental status, abdominal pain women, abdominal pain men, vaginal bleeding, weakness, fever, dyspnea, syncope, headache, dizziness, GI bleed, back pain, seizure, CVA, palpatations, mental health, musculoskeletal)? @ -[Differential Dyspnea: Coronary syndrome, arrhythmia, tamponade, asthma, COPD, pulmonary embolism, pneumonia, pneumothorax, pulmonary effusion, anaphylaxis, diabetic ketoacidosis, flailed chest, pulmonary contusion, diaphragmatic rupture, anemia, neuromuscular, this is not meant to be an all-inclusive list. EKG interpreted by me (3pts min.). @ -[I interpreted as above] X-rays interpreted by me (1pt min.). @ -[I interpreted as above CT interpreted by me (1pt min.). @ -[None done] U/S interpreted by me (1pt. min.). @ -[None done] What testing was considered but not performed or refused? (CT, X-rays, U/S, labs)? Why? @ -[None] What meds were considered but not given or refused? Why? @ -[None] Did you discuss the management of the patient with other professionals (professionals i.e. , PA, ROLLER MAN, lab, RT, psych nurse, social sciences research scientist, ramp attendant, teacher, information security officer, case therapist)? Give summary @ -Case discussed with admitting physician and treatment recommendations incorporated Was smoking cessation discussed for >3mins.? @ -[No] Was critical care preformed (if so, how long)? @ -[Yes, 30 minutes Were there social determinants of health that impacted care today? How? (Homelessness, low income, unemployed, alcoholism, drug addiction, transportation, low edu. Level, literacy, decrease access to med. care, halfway, rehab)? @ -[No] Was there de-escalation of care discussed even if they declined (Discuss DNR or withdrawal of care, Hospice)? DNR status @ -[No] What co-morbidities impacted this encounter? (DM, HTN, Smoking, COPD, CAD, Cancer, CVA, ARF, Chemo, Hep., AIDS, mental health diagnosis, sleep apnea, morbid obesity)? @ -[Asthma, hypertension, morbid obesity Was patient admitted / discharged? Hospital course, mention meds given and route, prescriptions, significant lab abnormalities, going to OR and other pertinent info. @ -[Patient is a 58-year-old woman presenting with symptoms consistent with exacerbation of asthma and having failure of outpatient therapy. The patient is given additional steroid and nebulized treatments here with multiple reevaluations and the patient did not have satisfactory improvement. In light of this patient is admitted for further treatment Undiagnosed new problem with uncertain prognosis? @ -[No] Drug Therapy requiring intensive monitoring for toxicity (Heparin, Nitro, Insulin, Cardizem)? @ -[No] Were any procedures done? @ -[No] Diagnosis/symptom? @ -[Acute exacerbation of asthma Lactic acidosis Acute, or Chronic, or Acute on Chronic? @ -[Acute Uncomplicated (without systemic symptoms) or Complicated (systemic symptoms)? @ -[Complicated by dyspnea Side effects of treatment? @ -[No] Exacerbation, Progression, or Severe Exacerbation? @ -[Exacerbation Poses a threat to life or bodily function? How? (Chest pain, USA, SD, pneumonia, PE, COPD, DKA, ARF, appy, cholecystitis, CVA, Diverticulitis, Homicidal, Suicidal, threat to staff... and all critical care pts) @ -[Yes there is mild risk of worsening respiratory condition leading to respiratory failure/ - Lab Data Result diagrams: 12/10/23 20:16 12/10/23 20:16 Lab Results 12/10/23 Range/Units 14:57 Influenza Type A (PCR) Not Detected (Not Detectd) Influenza Type B (PCR) Not Detected (Not Detectd) RSV (PCR) Not Detected (Not Detectd) SARS-CoV-2 (PCR) Not Detected (Not Detectd) - EKG Data -: EKG Interpreted by Pa EKG shows normal: sinus rhythm, axis (Borderline left axis), intervals (Normal), QRS complexes (Incomplete right bundle branch block) Rate: normal (Rate 62 bpm) Disposition Clinical Impression: Asthma with acute exacerbation
[2023-12-10] MEDS: IPRATROPIUM-ALBUTEROL 3 ML NEB INHALATION STA (16:27)
[2023-12-10] MEDS: ALBUTEROL NEBULIZED 2.5 MG/3 ML INHALATION STA ×2 (16:27→18:02)
[2023-12-10] MEDS ORDERED: NALOXONE 0.4 MG/ML 1 ML VIAL IVP PRN (19:04)
[2023-12-10] MEDS: IPRATROPIUM-ALBUTEROL 3 ML NEB INHALATION SCH (19:30)
[2023-12-10] MEDS: SYMBICORT 80-4.5 MCG INHALER INHALATION SCH (19:32)
[2023-12-10] MEDS: predniSONE 20 MG TAB PO SCH (20:02)
[2023-12-10] MEDS: SODIUM CHLORIDE 0.9% 500 ML 500 ML IV STA (20:21)
[2023-12-10 20:39] LABS: Basophils # (A) 0.1 k/uL (0-0.2); Basophils % (A) 0 %; Eosinophils # (A) 0.1 k/uL (0-0.7); Eosinophils % (A) 1 %; HCT 45.5 % (34.0-46.0); HGB 14.9 gm/dL (11.4-16.0); Lymphocytes # (A) 5.6 k/uL (1.0-4.8); Lymphocytes % (A) 37 %; MCH 30.1 pg (25.0-35.0); MCHC 32.8 g/dL (31.0-37.0); MCV 91.7 fL (80.0-100.0); Mean Platelet Volume 7.4; Monocytes # (A) 0.7 k/uL (0-1.0); Monocytes % (A) 5 %; Neutrophils # (A) 8.2 k/uL (1.3-7.7); Neutrophils % (A) 54 %; Platelet Count 383 k/uL (150-450); RBC 4.96 m/uL (3.80-5.40); RDW 13.4 % (11.5-15.5); WBC 15.1 k/uL (3.8-10.6)
[2023-12-10 20:53] LABS: ALT 19 U/L (4-34); AST 19 U/L (14-36); African American GFR (CKD) 89 (>60 ml/min/1.73 sqM); Albumin 4.1 g/dL (3.5-5.0); Alkaline Phosphatase 111 U/L (38-126); Anion Gap 9 mmol/L; Blood Urea Nitrogen 18 mg/dL (7-17); Carbon Dioxide 23 mmol/L (22-30); Chloride 106 mmol/L (98-107); Glucose 108 mg/dL (74-99); Non-African American GFR(CKD) 77 (>60 ml/min/1.73 sqM); Potassium 3.2 mmol/L (3.5-5.1); Sodium 138 mmol/L (137-145); Total Bilirubin 0.2 mg/dL (0.2-1.3); Total Protein 6.9 g/dL (6.3-8.2)
[2023-12-10 20:58] LABS: INR 0.8 (<1.2); Prothrombin Time 9.6 sec (10.0-12.5)
[2023-12-10 21:02] LABS: NT-Pro-B-Type Natriuretic Pept 68 pg/mL
[2023-12-10 21:07] LABS: Partial Thromboplastin Time 22.2 sec (22.0-30.0)
[2023-12-10] MEDS: SODIUM CHLORIDE 0.9% 500 ML 500 ML IV ONE (21:50)
--- NOTE | 2023-12-10 23:09 | P.HPIM ---
History of Present Illness H&P Date: 12/10/23 Patient is a 58-year-old female with a PMH of HTN, HLD, asthma, hypothyroidism, who presents to the emergency room with complaints of productive cough and shortness of breath. Patient has been experiencing cough productive of yellow phlegm over the past 5 days and the phlegm recently changed to brown. Reports being seen at an urgent care clinic on Wednesday and was started on oral doxycycline and prednisone which have failed to improve her symptoms. She denies experiencing chest discomfort, nausea, vomiting, diaphoresis, or dizziness. Chest x-ray in the emergency room was unremarkable with EKG showing sinus rhythm at 71 bpm with left axis deviation as reviewed by me. Laboratory evaluation was remarkable for leukocytosis of 15.1, lactic acid 2.3, troponin less than 0.012, respiratory viral panel unremarkable, potassium 3.2, and glucose 108. ED documentation reviewed and case discussed with ED provider. Review of systems: Pertinent positives and negatives as discussed in HPI, a complete review of systems was performed and all other systems are negative. Physical examination: Vital signs reviewed General: non toxic, no distress, appears at stated age, obese Derm: no unusual rashes/lesions, warm Head: atraumatic, normocephalic, symmetric Eyes: EOMI, no lid lag, anicteric sclera, pupils equal round reactive to light ENT: Nose and ears atraumatic Neck: No cervical lymphadenopathy, trachea midline, supple Mouth: no lip lesion, mucus membranes moist Cardiovascular: S1S2 reg, no murmur, positive dorsalis pedis pulse bilateral, no edema Lungs: Diffuse coarse breath sounds with rhonchi without rales or wheezing, no accessory muscle use Abdominal: soft, nontender to palpation, no guarding Ext: muscle strength 5 out of 5 in all 4 extremities grossly, no gross muscle atrophy, no contractures, Neuro: CN II-XI grossly intact, no gross focal neuro deficits Psych: Alert, oriented, appropriate affect Assessment: Acute bronchitis, rule out community-acquired pneumonia Lactic acidosis Hypokalemia Chronic conditions: Hypothyroidism Imaging: Chest x-ray in the emergency room was unremarkable with EKG showing sinus rhythm at 71 bpm with left axis deviation as reviewed by me. Data Review: Laboratory evaluation was remarkable for leukocytosis of 15.1, lactic acid 2.3, troponin less than 0.012, respiratory viral panel unremarkable, potassium 3.2, and glucose 108. Plan: Continue patient on prednisone 60 mg p.o. daily and DuoNebs Start patient on ceftriaxone and azithromycin pending procalcitonin levels Continue IV fluids with normal saline 75 cc/h Monitor lactic acid levels for resolution Replace potassium Continue with home medications Pulmonary consulted Antitussives DVT prophylaxis: Lovenox The patient is admitted with an anticipated less than 2 midnight stay for evaluation of acute bronchitis CODE STATUS: Full Code Discussed with: Patient Anticipated discharge place: Home Past Medical History Past Medical History: Asthma, Chest Pain / Angina, GERD/Reflux, Hyperlipidemia, Hypertension, Pneumonia, Thyroid Disorder Additional Past Medical History / Comment(s): states has had "choking feeling" recent diagnosed with benign thyroid nodules, NECK PAIN spurs on CSpine, MIGRAINES, OCCASIONAL SVT- STATES HX OF 2ND DEGREE HEART BLOCK WHEN HER BLOOD PRESSURE GOES LOW. SHORTNESS OF BREATH WITH EXERTION , HIATAL HERNIA History of Any Multi-Drug Resistant Organisms: None Reported Past Surgical History: Breast Surgery, Cholecystectomy, Heart Catheterization, Orthopedic Surgery, Tonsillectomy Additional Past Surgical History / Comment(s): thyroid nodule bx, LEFT OVARY & TUBE REMOVED 2000. Multiple laparoscopy is for endometriosis, HEART CATH (2013). Colonoscopy . Left lower arm bone reduction surgery, D & C Past Anesthesia/Blood Transfusion Reactions: Previous Problems w/ Anesthesia Additional Past Anesthesia/Blood Transfusion Reaction / Comment(s): STATES severe projectile vomiting WITH DILAUDID. STATES HX OF SVT AND 2ND DEGREE HEART BLOCK WHEN BP DROPS LOW. Past Psychological History: Depression Smoking Status: Current every day smoker Past Alcohol Use History: Rare Additional Past Alcohol Use History / Comment(s): STARTED SMOKING AT AGE 18 QUIT SMOKING QUIT MARCH 2013. SMOKED 1-1 1/2 PPD, Started smoking 2021, 1/2 Pack per day Past Drug Use History: None Reported - Past Family History Mother Family Medical History: Cancer Additional Family Medical History / Comment(s): OF COLON RECTAL CANCER. 2 maternal aunts had breast cancer. Both grandmothers had an NM. Father Family Medical History: Cancer, Congestive Heart Failure (CHF), COPD Additional Family Medical History / Comment(s): SKIN CANCER Brother(s) Family Medical History: Cancer Additional Family Medical History / Comment(s): TUMOR AROUND JUGULAR WITH METS. Another brother had an NM. 2ND BROTHER WITH CANCER Medications and Allergies Home Medications Medication Instructions Recorded Confirmed Type FLUoxetine HCL [PROzac] 20 mg PO HS 10/17/17 12/10/23 History Montelukast Sodium [Singulair] 10 mg PO HS 01/07/21 12/10/23 History Losartan [Cozaar] 50 mg PO HS 05/11/23 12/10/23 History Nitroglycerin Sl Tabs [Nitrostat] 0.4 mg SL Q5M PRN 05/11/23 12/10/23 History Isosorbide Mononitrate ER [Imdur] 30 mg PO DAILY 06/08/23 12/10/23 History Rosuvastatin [Crestor] 10 mg PO HS 06/08/23 12/10/23 History Albuterol Sulfate [Proventil Hfa] 2 puff INHALATION RT-Q4H PRN 12/10/23 12/10/23 History Cetirizine HCl [Zyrtec] 10 mg PO HS 12/10/23 12/10/23 History Doxycycline Hyclate 100 mg PO Q12H 12/10/23 12/10/23 History Ergocalciferol [Vitamin D2 (1250 1,250 mcg PO CHICAS 12/10/23 12/10/23 History Mcg = 47109 Iu)] Ipratropium-Albuterol Nebulize 3 ml INHALATION RT-Q4H PRN 12/10/23 12/10/23 History [Duoneb 0.5 mg-3 mg/3 ml Soln] Promethazine/Dextromethorphan 5 ml PO Q4H PRN 12/10/23 12/10/23 History [Promethazine-Dm Syrup] predniSONE 50 mg PO DAILY 12/10/23 12/10/23 History Allergies Allergy/AdvReac Type Severity Reaction Status Date / Time hydromorphone [From Dilaudid] Allergy Severe Verified 12/10/23 14:43 Vomiting adhesive tape AdvReac Itching, Verified 12/10/23 14:43 RED SKIN atorvastatin [From Lipitor] AdvReac Severe Verified 12/10/23 14:43 joint pain ezetimibe [From Zetia] AdvReac Severe Verified 12/10/23 14:43 joint pain Physical Exam Vitals: Vital Signs Temp Pulse Pulse Resp BP BP Pulse Ox 12/10/23 22:57 18 12/10/23 22:38 98.2 F 73 17 165/78 98 12/10/23 21:46 77 18 169/99 95 12/10/23 19:42 85 12/10/23 19:32 82 12/10/23 19:00 81 20 124/72 96 12/10/23 18:12 75 20 12/10/23 18:02 99 24 12/10/23 18:00 78 20 152/74 94 L 12/10/23 17:00 93 22 134/87 96 12/10/23 16:40 88 24 12/10/23 16:27 83 24 12/10/23 16:11 84 24 134/87 98 12/10/23 14:40 97.9 F 108 H 20 153/89 98 Intake and Output 12/10/23 12/10/23 12/11/23 14:59 22:59 06:59 Other: Weight 122.47 kg 122.47 kg Results CBC & Chem 7: 12/10/23 20:16 12/10/23 20:16 Labs: Abnormal Lab Results - Last 24 Hours (Table) 12/10/23 12/10/23 12/10/23 Range/Units 20:16 20:16 20:16 WBC 15.1 H (3.8-10.6) k/uL Neutrophils # 8.2 H (1.3-7.7) k/uL Lymphocytes # 5.6 H (1.0-4.8) k/uL PT 9.6 L (10.0-12.5) sec Potassium 3.2 L (3.5-5.1) mmol/L BUN 18 H (7-17) mg/dL Glucose 108 H (74-99) mg/dL Plasma Lactic Acid Eddie (0.7-2.0) mmol/L 12/10/23 Range/Units 20:16 WBC (3.8-10.6) k/uL Neutrophils # (1.3-7.7) k/uL Lymphocytes # (1.0-4.8) k/uL PT (10.0-12.5) sec Potassium (3.5-5.1) mmol/L BUN (7-17) mg/dL Glucose (74-99) mg/dL Plasma Lactic Acid Eddie 2.3 H* (0.7-2.0) mmol/L Thrombosis Risk Factor Assmnt - Choose All That Apply Any of the Below Risk Factors Present?: Yes Each Factor Represents 1 point: Age 41-60 years, Obesity (BMI >25) Other Risk Factors: No Other congenital or acquired thrombophilia - If yes, enter type in comment: No Thrombosis Risk Factor Assessment Total Risk Factor Score: 2 Thrombosis Risk Factor Assessment Level: Low Risk
[2023-12-11] MEDS: POTASSIUM CHLORIDE ER 20 MEQ TAB.ER PO STA (00:04)
[2023-12-11] MEDS: AZITHROMYCIN 500 MG TAB PO SCH (00:05)
[2023-12-11] MEDS: BENZOCAINE/MENTHOL LOZENG 1 EACH LOZENGE MUCOUS MEM PRN (00:05)
[2023-12-11] MEDS: SODIUM CHLORIDE 0.9% 1,000 ML IV SCH (00:07)
[2023-12-11] MEDS: IPRATROPIUM-ALBUTEROL 3 ML NEB INHALATION PRN (00:24)
[2023-12-11] MEDS: ACETAMINOPHEN TAB 325 MG TAB PO PRN (10:32)
[2023-12-11] MEDS: ISOSORBIDE MONONITRATE ER 30 MG TAB.ER.24H PO SCH (10:33)
--- NOTE | 2023-12-11 12:02 | P.PN ---
Subjective Progress Note Date: 12/11/23 58-year-old female with a PMH of HTN, HLD, asthma, hypothyroidism, who presents to the emergency room with complaints of productive cough and shortness of breath. Patient has been experiencing cough productive of yellow phlegm over the past 5 days and the phlegm recently changed to brown. Reports being seen at an urgent care clinic on Wednesday and was started on oral doxycycline and prednisone which have failed to improve her symptoms. Chest x-ray in the emergency room was unremarkable with EKG showing sinus rhythm at 71 bpm with left axis deviation as reviewed by me. Laboratory evaluation was remarkable for leukocytosis of 15.1, lactic acid 2.3, troponin less than 0.012, respiratory viral panel unremarkable, potassium 3.2, and glucose 108. Started on DuoNeb and SoluMedrol. Started on Rocephin and Azithromycin. Procal pending. Pulmonary consulted. 12/10 Patient was seen and examined. Continued shortness of breath. 30% better. Lactic acid 1.2. Procal 0.04. General: no distress, appears at stated age Derm: warm, dry Head: atraumatic, normocephalic, symmetric Eyes: EOMI, no lid lag, anicteric sclera Mouth: no lip lesion, mucus membranes moist Cardiovascular: S1S2 , no murmur Lungs: Expiratory wheezing bilateral, no rhonchi, no rales , no accessory muscle use Abdominal: soft, nontender to palpation Ext: no gross muscle atrophy, no edema, no contractures Neuro: No focal neurologic deficits Psych: Alert and oriented Based on my assessment of this patient, this patient meets a high complexity level of care. Patient has an acute diagnosis of asthma exacerbation that poses a threat to life or bodily function. Asthma exacerbation: DuoNeb QID scheduled and PRN for SOB/wheezing. Symbicort INH BID. SoluMedrol 60 mg IV Q6H. Telemetry montoring. Pulmonary consult. Acute bronchitis: Discontinue Rocephin since pro-alla is negative. Continue Azithromycin 500 mg PO QD x 3 days for acute bronchitis. Lactic acidosis: Resolved with IV hydration. Hypokalemia: Repeat BMP tomorrow. Chronic conditions: Hypothyroidism CODE STATUS: FULL CODE. DVT Prophylaxis: Heparin SQ GI Prophylaxis: Protonix 40 mg PO QD Designated medical POA if patient is not able to make medical decisions for t hemselves: I have reviewed the following jury consultant notes: Pulmonary I have reviewed the results of the following tests: Lactic acid. Procal. I have ordered the following tests: I have discussed the care of this patient with the following independent historian: I have independently interpreted the following test below: I have discussed the management of this patient with the following physician: Objective - Vital Signs Vital signs: Vital Signs Temp 98.2 F 12/11/23 07:00 Pulse 85 12/11/23 09:19 Resp 18 12/11/23 11:19 BP 148/88 12/11/23 07:00 Pulse Ox 95 12/11/23 07:00 FiO2 Intake & Output 12/10/23 12/11/23 12/11/23 18:59 06:59 18:59 Intake Total 118 Balance 118 Weight 122.47 kg 122.47 kg Intake: Oral 118 Other: # Voids 3 - Labs CBC & Chem 7: 12/10/23 20:16 12/10/23 20:16 Labs: Abnormal Lab Results - Last 24 Hours (Table) 12/10/23 12/10/23 12/10/23 Range/Units 20:16 20:16 20:16 WBC 15.1 H (3.8-10.6) k/uL Neutrophils # 8.2 H (1.3-7.7) k/uL Lymphocytes # 5.6 H (1.0-4.8) k/uL PT 9.6 L (10.0-12.5) sec Potassium 3.2 L (3.5-5.1) mmol/L BUN 18 H (7-17) mg/dL Glucose 108 H (74-99) mg/dL Plasma Lactic Acid Eddie (0.7-2.0) mmol/L 12/10/23 12/11/23 12/11/23 Range/Units 20:16 00:06 03:47 WBC (3.8-10.6) k/uL Neutrophils # (1.3-7.7) k/uL Lymphocytes # (1.0-4.8) k/uL PT (10.0-12.5) sec Potassium (3.5-5.1) mmol/L BUN (7-17) mg/dL Glucose (74-99) mg/dL Plasma Lactic Acid Eddie 2.3 H* 4.0 H* 2.7 H* (0.7-2.0) mmol/L
--- NOTE | 2023-12-11 12:45 | P.CNPUL ---
History of Present Illness Consult date: 12/11/23 Requesting physician: Ronaldo Conde Reason for consult: dyspnea, cough, asthma Chief complaint: Shortness of breath, cough, congestion History of present illness: This is a very pleasant 58-year-old female with a known history of obesity, hyperlipidemia, hypertension, pression, chronic and ongoing tobacco dependence. She also has a history of mild intermittent chronic bronchial asthma and is maintained on albuterol as needed only. She was last seen in our office 2-1/2 years ago. Not on any maintenance medications. The last week she had developed increasing shortness of breath cough congestion and wheezing. She was seen in a urgent care where she was given doxycycline and steroids without much improvement. She came here to the emergency room yesterday. Chest x-ray shows no acute pulmonary process. White count 15.1. Hemoglobin 14.9. Platelets 383. D-dimer 0.19. Sodium 138. Potassium 3.2. Bicarb 23. BUN 18. Creatinine 0.85. Glucose 108. Troponin negative x 1. proBNP 68. Procalcitonin 0.04. Viral screen negative. She is seen today in consultation on the regular medical floor. She is sitting up in bed. Awake and alert in no acute distress. She is maintaining good O2 saturations in the mid 90s on room air. Afebrile. Hemodynamically stable. Review of Systems REVIEW OF SYSTEMS: CONSTITUTIONAL: Denies any recent significant weight loss or weight gain. EYES: Denies change in vision. EARS, NOSE, MOUTH, THROAT: Denies headaches, denies sore throat. CARDIOVASCULAR: Denies chest pain, palpitations or syncopal episodes. RESPIRATORY: Positive for shortness of breath, cough, congestion no hemoptysis. GASTROINTESTINAL: Denies change in appetite, denies abdominal pain GENITOURINARY: Denies hematuria, denies infections. MUSKULOSKELETAL: Denies pain, denies swelling. INTEGUMENTARY: Denies rash, denies eczema. NEUROLOGICAL: Denies recent memory loss, no recent seizure activity. PSYCHIATRIC: Denies anxiety, denies depression. HEMATOLOGIC/LYMPHATIC: Denies anemia, denies enlarged lymph nodes. Past Medical History Past Medical History: Asthma, Chest Pain / Angina, GERD/Reflux, Hyperlipidemia, Hypertension, Pneumonia, Thyroid Disorder Additional Past Medical History / Comment(s): states has had "choking feeling" recent diagnosed with benign thyroid nodules, NECK PAIN spurs on CSpine, MIGRAINES, OCCASIONAL SVT- STATES HX OF 2ND DEGREE HEART BLOCK WHEN HER BLOOD PRESSURE GOES LOW. SHORTNESS OF BREATH WITH EXERTION , HIATAL HERNIA History of Any Multi-Drug Resistant Organisms: None Reported Past Surgical History: Breast Surgery, Cholecystectomy, Heart Catheterization, Orthopedic Surgery, Tonsillectomy Additional Past Surgical History / Comment(s): thyroid nodule bx, LEFT OVARY & TUBE REMOVED 2000. Multiple laparoscopy is for endometriosis, HEART CATH (2013). Colonoscopy . Left lower arm bone reduction surgery, D & C Past Anesthesia/Blood Transfusion Reactions: Previous Problems w/ Anesthesia Additional Past Anesthesia/Blood Transfusion Reaction / Comment(s): STATES severe projectile vomiting WITH DILAUDID. STATES HX OF SVT AND 2ND DEGREE HEART BLOCK WHEN BP DROPS LOW. Past Psychological History: Depression Smoking Status: Current every day smoker - Past Family History Mother Family Medical History: Cancer Additional Family Medical History / Comment(s): OF COLON RECTAL CANCER. 2 maternal aunts had breast cancer. Both grandmothers had an FL. Father Family Medical History: Cancer, Congestive Heart Failure (CHF), COPD Additional Family Medical History / Comment(s): SKIN CANCER Brother(s) Family Medical History: Cancer Additional Family Medical History / Comment(s): TUMOR AROUND JUGULAR WITH METS. Another brother had an FL. 2ND BROTHER WITH CANCER Medications and Allergies Home Medications Medication Instructions Recorded Confirmed Type FLUoxetine HCL [PROzac] 20 mg PO HS 10/17/17 12/10/23 History Montelukast Sodium [Singulair] 10 mg PO HS 01/07/21 12/10/23 History Losartan [Cozaar] 50 mg PO HS 05/11/23 12/10/23 History Nitroglycerin Sl Tabs [Nitrostat] 0.4 mg SL Q5M PRN 05/11/23 12/10/23 History Isosorbide Mononitrate ER [Imdur] 30 mg PO DAILY 06/08/23 12/10/23 History Rosuvastatin [Crestor] 10 mg PO HS 06/08/23 12/10/23 History Albuterol Sulfate [Proventil Hfa] 2 puff INHALATION RT-Q4H PRN 12/10/23 12/10/23 History Cetirizine HCl [Zyrtec] 10 mg PO HS 12/10/23 12/10/23 History Doxycycline Hyclate 100 mg PO Q12H 12/10/23 12/10/23 History Ergocalciferol [Vitamin D2 (1250 1,250 mcg PO CHICAS 12/10/23 12/10/23 History Mcg = 97552 Iu)] Ipratropium-Albuterol Nebulize 3 ml INHALATION RT-Q4H PRN 12/10/23 12/10/23 History [Duoneb 0.5 mg-3 mg/3 ml Soln] Promethazine/Dextromethorphan 5 ml PO Q4H PRN 12/10/23 12/10/23 History [Promethazine-Dm Syrup] predniSONE 50 mg PO DAILY 12/10/23 12/10/23 History Allergies Allergy/AdvReac Type Severity Reaction Status Date / Time hydromorphone [From Dilaudid] Allergy Severe Verified 12/10/23 14:43 Vomiting adhesive tape AdvReac Itching, Verified 12/10/23 14:43 RED SKIN atorvastatin [From Lipitor] AdvReac Severe Verified 12/10/23 14:43 joint pain ezetimibe [From Zetia] AdvReac Severe Verified 12/10/23 14:43 joint pain Physical Exam Vitals: Vital Signs Temp Pulse Pulse Resp BP BP Pulse Ox 12/11/23 11:19 18 12/11/23 09:19 85 12/11/23 09:05 84 12/11/23 07:00 98.2 F 61 17 148/88 95 12/11/23 01:43 98.3 F 83 18 161/78 95 12/11/23 00:35 85 12/11/23 00:25 87 12/10/23 22:57 18 12/10/23 22:38 98.2 F 73 17 165/78 98 12/10/23 21:46 77 18 169/99 95 12/10/23 19:42 85 12/10/23 19:32 82 12/10/23 19:00 81 20 124/72 96 12/10/23 18:12 75 20 12/10/23 18:02 99 24 12/10/23 18:00 78 20 152/74 94 L 12/10/23 17:00 93 22 134/87 96 12/10/23 16:40 88 24 12/10/23 16:27 83 24 12/10/23 16:11 84 24 134/87 98 12/10/23 14:40 97.9 F 108 H 20 153/89 98 Intake and Output 12/10/23 12/11/23 12/11/23 22:59 06:59 14:59 Intake Total 118 Balance 118 Intake: Oral 118 Other: # Voids 3 Weight 122.47 kg GENERAL EXAM: Alert, pleasant, obese 58-year-old female on room air, comfortable in no apparent distress. HEAD: Normocephalic. EYES: Normal reaction of pupils, equal size. NOSE: Clear with pink turbinates. THROAT: No erythema or exudates. NECK: No masses, no JVD. CHEST: No chest wall deformity. LUNGS: Equal air entry with end expiratory wheeze. CVS: S1 and S2 normal with no audible murmur, regular rhythm. ABDOMEN: No hepatosplenomegaly, normal bowel sounds, no guarding or rigidity. SPINE: No scoliosis or deformity SKIN: No rashes CENTRAL NERVOUS SYSTEM: No focal deficits, tone is normal in all 4 extremities. EXTREMITIES: There is no peripheral edema. No clubbing, no cyanosis. Peripheral pulses are intact. Results - Laboratory Findings CBC and BMP: 12/10/23 20:16 12/10/23 20:16 PT/INR, D-dimer PT 9.6 sec (10.0-12.5) L 12/10/23 20:16 INR 0.8 (<1.2) 12/10/23 20:16 D-Dimer 0.19 mg/L FEU (<0.60) 12/10/23 20:16 Abnormal lab findings: Abnormal Labs 12/10/23 12/10/23 12/10/23 20:16 20:16 20:16 WBC 15.1 H Neutrophils # 8.2 H Lymphocytes # 5.6 H PT 9.6 L Potassium 3.2 L BUN 18 H Glucose 108 H Plasma Lactic Acid Eddie 12/10/23 12/11/23 12/11/23 20:16 00:06 03:47 WBC Neutrophils # Lymphocytes # PT Potassium BUN Glucose Plasma Lactic Acid Eddie 2.3 H* 4.0 H* 2.7 H* - Diagnostic Findings Chest x-ray: image reviewed Assessment and Plan Assessment: Acute exacerbation of mild chronic intermittent asthma complicated by purulent tracheobronchitis. No evidence of pneumonia. Procalcitonin 0.04 Hypertension Hyperlipidemia History of depression Tobacco dependence Obesity with a BMI of 43.6 kg/m Hypothyroidism Plan: The patient was seen and evaluated Chest x-ray, labs and medications reviewed Continue Symbicort and bronchodilators Add IV Solu-Medrol Continue empiric antibiotics Stable and on room air Probable discharge in the a.m. We will continue to follow and make further recommendations based on her clinical status I have personally seen and examined the patient, performed the documentation and the assessment and plan as written. Number of minutes spent on the visit: 20.
[2023-12-11] MEDS: methylPREDNISolone SOD SUCCI 125 MG/2 ML VIAL IV SCH (18:50)
[2023-12-11] MEDS: NON FORMULARY DRUG (Rosuvastatin 10 MG Tablet) PO SCH (19:38)
[2023-12-11] MEDS: LOSARTAN 50 MG TAB PO SCH (20:08)
[2023-12-11] MEDS: MONTELUKAST 10 MG TAB PO SCH (20:08)
[2023-12-11] MEDS: FLUoxetine HCL 20 MG CAP PO SCH (20:09)
[2023-12-11] MEDS: KETOROLAC 15 MG/ML 1 ML VIAL IVP PRN (21:36)
[2023-12-11] MEDS: guaiFENesin SYRUP 100MG/5ML 200 MG/10 ML CUP PO PRN (22:09)
[2023-12-12] MEDS: PANTOPRAZOLE 40 MG TABLET PO SCH (06:25)
[2023-12-12 08:23] LABS: HCT 43.8 % (34.0-46.0); HGB 13.9 gm/dL (11.4-16.0); MCH 29.6 pg (25.0-35.0); MCHC 31.8 g/dL (31.0-37.0); MCV 93.3 fL (80.0-100.0); Mean Platelet Volume 7.6; Platelet Count 353 k/uL (150-450); RDW 13.5 % (11.5-15.5); WBC 15.5 k/uL (3.8-10.6)
[2023-12-12 08:51] LABS: African American GFR (CKD) >90 (>60 ml/min/1.73 sqM); Anion Gap 6 mmol/L; Blood Urea Nitrogen 17 mg/dL (7-17); Carbon Dioxide 23 mmol/L (22-30); Chloride 108 mmol/L (98-107); Glucose 125 mg/dL (74-99); Magnesium 2.1 mg/dL (1.6-2.3); Non-African American GFR(CKD) >90 (>60 ml/min/1.73 sqM); Sodium 137 mmol/L (137-145)
[2023-12-12 08:53] LABS: Potassium 4.9 mmol/L (3.5-5.1)
[2023-12-12] MEDS: ENOXAPARIN 40 MG/0.4 ML SYRINGE SQ SCH (09:27)
--- NOTE | 2023-12-12 12:19 | P.PN ---
Subjective Progress Note Date: 12/12/23 This is a very pleasant 58-year-old female with a known history of obesity, hyperlipidemia, hypertension, pression, chronic and ongoing tobacco dependence. She also has a history of mild intermittent chronic bronchial asthma and is maintained on albuterol as needed only. She was last seen in our office 2-1/2 years ago. Not on any maintenance medications. The last week she had developed increasing shortness of breath cough congestion and wheezing. She was seen in a urgent care where she was given doxycycline and steroids without much improvement. She came here to the emergency room yesterday. Chest x-ray shows no acute pulmonary process. White count 15.1. Hemoglobin 14.9. Platelets 383. D-dimer 0.19. Sodium 138. Potassium 3.2. Bicarb 23. BUN 18. Creatinine 0.85. Glucose 108. Troponin negative x 1. proBNP 68. Procalcitonin 0.04. Viral screen negative. She is seen today in consultation on the regular medical floor. She is sitting up in bed. Awake and alert in no acute distress. She is maintaining good O2 saturations in the mid 90s on room air. Afebrile. Hemodynamically stable. The patient is seen today December 12, 2023 in follow-up on the regular medical floor. She is currently sitting up in bed. Awake and alert in no acute distress. Breathing easier today compared to yesterday. Not quite back to her baseline. Maintaining good O2 saturations in the 90s on room air. White count 15.5. Hemoglobin 13.9. Sodium 137. Potassium 4.9. Bicarb 23. BUN 17. Cr eatinine 0.61. Glucose 125. She remains on DuoNeb inhalations, Symbicort, Singulair, Solu-Medrol. Lovenox for DVT prophylaxis. Objective - Vital Signs Vital signs: Vital Signs Temp 98.0 F 12/12/23 07:00 Pulse 83 12/12/23 11:21 Resp 18 12/12/23 08:36 BP 136/72 12/12/23 07:00 Pulse Ox 94 L 12/12/23 07:00 FiO2 Intake & Output 12/11/23 12/12/23 12/12/23 18:59 06:59 18:59 Intake Total 1040 Balance 1040 Intake: Oral 1040 Other: # Voids 2 2 - Exam GENERAL EXAM: Alert, obese 58-year-old female, on room air, comfortable in no apparent distress. HEAD: Normocephalic. EYES: Normal reaction of pupils, equal size. NOSE: Clear with pink turbinates. THROAT: No erythema or exudates. NECK: No masses, no JVD. CHEST: No chest wall deformity. LUNGS: Equal air entry with end expiratory wheeze. CVS: S1 and S2 normal with no audible murmur, regular rhythm. ABDOMEN: No hepatosplenomegaly, normal bowel sounds, no guarding or rigidity. SPINE: No scoliosis or deformity SKIN: No rashes CENTRAL NERVOUS SYSTEM: No focal deficits, tone is normal in all 4 extremities. EXTREMITIES: There is no peripheral edema. No clubbing, no cyanosis. Perip heral pulses are intact. - Labs CBC & Chem 7: 12/12/23 08:07 12/12/23 08:07 Labs: Abnormal Lab Results - Last 24 Hours (Table) 12/12/23 12/12/23 Range/Units 08:07 08:07 WBC 15.5 H (3.8-10.6) k/uL Chloride 108 H (98-107) mmol/L Glucose 125 H (74-99) mg/dL Assessment and Plan Assessment: Acute exacerbation of mild chronic intermittent asthma complicated by purulent tracheobronchitis. No evidence of pneumonia. Procalcitonin 0.04 Hypertension Hyperlipidemia History of depression Tobacco dependence Obesity with a BMI of 43.6 kg/m Hypothyroidism Plan: The patient was seen and evaluated Labs and medications reviewed Continue the current treatment plan Stable and on room air Probable discharge in the a.m. We will continue to follow I have personally seen and examined the patient, performed the documentation and the assessment and plan as written. Number of minutes spent on the visit: 10.
--- NOTE | 2023-12-12 16:17 | P.PN ---
Subjective Progress Note Date: 12/12/23 58-year-old female with a PMH of HTN, HLD, asthma, hypothyroidism, who presents to the emergency room with complaints of productive cough and shortness of breath. Patient has been experiencing cough productive of yellow phlegm over the past 5 days and the phlegm recently changed to brown. Reports being seen at an urgent care clinic on Wednesday and was started on oral doxycycline and prednisone which have failed to improve her symptoms. Chest x-ray in the emergency room was unremarkable with EKG showing sinus rhythm at 71 bpm with left axis deviation as reviewed by me. Laboratory evaluation was remarkable for leukocytosis of 15.1, lactic acid 2.3, troponin less than 0.012, respiratory viral panel unremarkable, potassium 3.2, and glucose 108. Started on DuoNeb and SoluMedrol. Started on Rocephin and Azithromycin. Procal pending. Pulmonary consulted. 12/10 Patient was seen and examined. Continued shortness of breath. 30% better. Lactic acid 1.2. Procal 0.04. 12/11 Patient was seen and examined. Breathing improved. 60% better. Not quite back to baseline. Pulmonary recommends one more day. Hopeful discharge tomorrow. CBC WBC 15.5. BMP Cl 108, glu 125. General: no distress, appears at stated age Derm: warm, dry Head: atraumatic, normocephalic, symmetric Eyes: EOMI, no lid lag, anicteric sclera Mouth: no lip lesion, mucus membranes moist Cardiovascular: Good distal perfusion in all 4 extremities Lungs: End Expiratory wheezing bilateral, no rhonchi, no rales , no accessory muscle use Ext: no gross muscle atrophy, no edema, no contractures Neuro: No focal neurologic deficits Psych: Alert and oriented Based on my assessment of this patient, this patient meets a high complexity lev el of care. Patient has an acute diagnosis of asthma exacerbation that poses a threat to life or bodily function. Asthma exacerbation: DuoNeb QID scheduled and PRN for SOB/wheezing. Symbicort INH BID. SoluMedrol 60 mg IV Q6H. Telemetry montoring. Pulmonary consult. Acute bronchitis: Discontinue Rocephin since pro-alla is negative. Continue Azithromycin 500 mg PO QD x 3 days for acute bronchitis. Leukocytosis: Steroid induced. Monitor fever profile. Lactic acidosis: Resolved with IV hydration. Hypokalemia: Repeat BMP tomorrow. Chronic conditions: Hypothyroidism CODE STATUS: FULL CODE. DVT Prophylaxis: Heparin SQ GI Prophylaxis: Protonix 40 mg PO QD Designated medical POA if patient is not able to make medical decisions for themselves: I have reviewed the following [facility] consultant notes: Pulmonary I have reviewed the results of the following tests: CBC, BMP. I have ordered the following tests: I have discussed the care of this patient with the following independent historian: I have independently interpreted the following test below: I have discussed the management of this patient with the following physician: Objective - Vital Signs Vital signs: Vital Signs Temp 98.0 F 12/12/23 07:00 Pulse 84 12/12/23 15:08 Resp 18 12/12/23 08:36 BP 136/72 12/12/23 07:00 Pulse Ox 94 L 12/12/23 07:00 FiO2 Intake & Output 12/11/23 12/12/23 12/12/23 18:59 06:59 18:59 Intake Total 1040 240 Balance 1040 240 Intake: Oral 1040 240 Other: # Voids 2 2 - Labs CBC & Chem 7: 12/12/23 08:07 12/12/23 08:07 Labs: Abnormal Lab Results - Last 24 Hours (Table) 12/12/23 12/12/23 Range/Units 08:07 08:07 WBC 15.5 H (3.8-10.6) k/uL Chloride 108 H (98-107) mmol/L Glucose 125 H (74-99) mg/dL
[2023-12-12 17:11] VITALS: RESP 16
[2023-12-13] MEDS: SYMBICORT 160-4.5 MCG INHALER INHALATION SCH (08:37)
--- NOTE | 2023-12-13 10:01 | P.DS ---
Providers Date of admission: 12/10/23 19:09 Expected date of discharge: 12/13/23 Attending physician: Ronaldo Conde MD Consults: 12/10/23 19:04 Consult Physician Routine Consulting Provider: Aaron Lawler Consult Reason/Comments: Asthma exacerbation, failed outpatient treatment Do you want consulting provider notified?: Yes Primary care physician: [facility] Course: 58-year-old female with a PMH of HTN, HLD, asthma, hypothyroidism, who presents to the emergency room with complaints of productive cough and shortness of breath. Patient has been experiencing cough productive of yellow phlegm over the past 5 days and the phlegm recently changed to brown. Reports being seen at an urgent care clinic on Wednesday and was started on oral doxycycline and pred nisone which have failed to improve her symptoms. Chest x-ray in the emergency room was unremarkable with EKG showing sinus rhythm at 71 bpm with left axis deviation as reviewed by me. Laboratory evaluation was remarkable for leukocytosis of 15.1, lactic acid 2.3, troponin less than 0.012, respiratory viral panel unremarkable, potassium 3.2, and glucose 108. Started on DuoNeb and SoluMedrol. Started on Rocephin and Azithromycin. Procal pending. Pulmonary consulted. 12/10 Patient was seen and examined. Continued shortness of breath. 30% better. Lactic acid 1.2. Procal 0.04. 12/11 Patient was seen and examined. Breathing improved. 60% better. Not quite back to baseline. Pulmonary recommends one more day. Hopeful discharge tomorrow. CBC WBC 15.5. BMP Cl 108, glu 125. / Patient was seen and examined. Breathing improved. Saturating well on RA. Plans for discharge home today on Symbicort and Prednisone taper. She does have nebulized treatments and albuterol inhaler at home. General: no distress, appears at stated age Derm: warm, dry Head: atraumatic, normocephalic, symmetric Eyes: EOMI, no lid lag, anicteric sclera Mouth: no lip lesion, mucus membranes moist Cardiovascular: Good distal perfusion in all 4 extremities. Normal S1 S2 Lungs: End Expiratory wheezing bilateral, no rhonchi, no rales , no accessory muscle use Ext: no gross muscle atrophy, no edema, no contractures Neuro: No focal neurologic deficits Psych: Alert and oriented Discharge Diagnosis: Asthma exacerbation Acute bronchitis Leukocytosis Lactic acidosis Hypokalemia Chronic conditions: Hypothyroidism This complex discharge took 35 minutes to complete. Patient Condition at Discharge: Stable Plan - Discharge Summary New Discharge Prescriptions: New predniSONE See Taper PO DIRECTED #30 tab Pantoprazole [Protonix] 40 mg PO AC-BRKFST #30 tab Budesonide-Formot 160-4.5 Mcg [Symbicort 160-4.5 Mcg Inhaler] 2 puff INHALATION RT-BID #1 each Continue FLUoxetine HCL [PROzac] 20 mg PO HS Montelukast Sodium [Singulair] 10 mg PO HS Nitroglycerin Sl Tabs [Nitrostat] 0.4 mg SL Q5M PRN PRN Reason: Chest Pain Cetirizine HCl [Zyrtec] 10 mg PO HS Promethazine/Dextromethorphan [Promethazine-Dm 6.25-15 mg/5Ml] 5 ml PO Q4H PRN PRN Reason: Cough Ipratropium-Albuterol Nebulize [Duoneb 0.5 mg-3 mg/3 ml Soln] 3 ml INHALATION RT-Q4H PRN PRN Reason: Shortness Of Breath Ergocalciferol [Vitamin D2 (1250 Mcg = 24028 Iu)] 1,250 mcg PO CHICAS Losartan [Cozaar] 50 mg PO HS Isosorbide Mononitrate ER [Imdur] 30 mg PO DAILY Rosuvastatin [Crestor] 10 mg PO HS Albuterol Sulfate [Proventil Hfa] 2 puff INHALATION RT-Q4H PRN PRN Reason: Shortness Of Breath Discontinued predniSONE 50 mg PO DAILY Doxycycline Hyclate 100 mg PO Q12H Discharge Medication List FLUoxetine HCL [PROzac] 20 mg PO HS 10/17/17 [History] Montelukast Sodium [Singulair] 10 mg PO HS 01/07/21 [History] Losartan [Cozaar] 50 mg PO HS 05/11/23 [History] Nitroglycerin Sl Tabs [Nitrostat] 0.4 mg SL Q5M PRN 05/11/23 [History] Isosorbide Mononitrate ER [Imdur] 30 mg PO DAILY 06/08/23 [History] Rosuvastatin [Crestor] 10 mg PO HS 09/26/23 [History] Albuterol Sulfate [Proventil Hfa] 2 puff INHALATION RT-Q4H PRN 12/10/23 [History] Cetirizine HCl [Zyrtec] 10 mg PO HS 12/10/23 [History] Ergocalciferol [Vitamin D2 (1250 Mcg = 32744 Iu)] 1,250 mcg PO CHICAS 12/10/23 [History] Ipratropium-Albuterol Nebulize [Duoneb 0.5 mg-3 mg/3 ml Soln] 3 ml INHALATION RT-Q4H PRN 12/10/23 [History] Promethazine/Dextromethorphan [Promethazine-Dm 6.25-15 mg/5Ml] 5 ml PO Q4H PRN 12/10/23 [History] Budesonide-Formot 160-4.5 Mcg [Symbicort 160-4.5 Mcg Inhaler] 2 puff INHALATION RT-BID #1 each 12/13/23 [Rx] Pantoprazole [Protonix] 40 mg PO AC-BRKFST #30 tab 12/13/23 [Rx] predniSONE See Taper PO DIRECTED #30 tab 12/13/23 [Rx] Follow up Appointment(s)/Referral(s): Nehemiah Fuller MD [Primary Care Provider] - 1-2 days Aaron Lawler MD [STAFF PHYSICIAN] - 1 Week Discharge Disposition: HOME SELF-CARE
[2023-12-13 10:33] VITALS: BP 152/75; TEMP 98.2
[2023-12-13 12:02] VITALS: PULSE 88
--- NOTE | 2023-12-13 12:28 | P.PN ---
Subjective Progress Note Date: 12/13/23 This is a very pleasant 58-year-old female with a known history of obesity, hyperlipidemia, hypertension, pression, chronic and ongoing tobacco dependence. She also has a history of mild intermittent chronic bronchial asthma and is maintained on albuterol as needed only. She was last seen in our office 2-1/2 years ago. Not on any maintenance medications. The last week she had developed increasing shortness of breath cough congestion and wheezing. She was seen in a urgent care where she was given doxycycline and steroids without much improvement. She came here to the emergency room yesterday. Chest x-ray shows no acute pulmonary process. White count 15.1. Hemoglobin 14.9. Platelets 383. D-dimer 0.19. Sodium 138. Potassium 3.2. Bicarb 23. BUN 18. Creatinine 0.85. Glucose 108. Troponin negative x 1. proBNP 68. Procalcitonin 0.04. Viral screen negative. She is seen today in consultation on the regular medical floor. She is sitting up in bed. Awake and alert in no acute distress. She is maintaining good O2 saturations in the mid 90s on room air. Afebrile. Hemodynamically stable. The patient is seen today December 12, 2023 in follow-up on the regular medical floor. She is currently sitting up in bed. Awake and alert in no acute distress. Breathing easier today compared to yesterday. Not quite back to her baseline. Maintaining good O2 saturations in the 90s on room air. White count 15.5. Hemoglobin 13.9. Sodium 137. Potassium 4.9. Bicarb 23. BUN 17. Cr eatinine 0.61. Glucose 125. She remains on DuoNeb inhalations, Symbicort, Singulair, Solu-Medrol. Lovenox for DVT prophylaxis. The patient is seen today December 13, 2023 in follow-up on the regular medical floor. She is currently sitting up in bed. Awake and alert in no acute distress. Continues to maintain good O2 saturations in the 90s on room air. She is afebrile. Hemodynamically stable. She is continued on DuoNeb inhalations, Symbicort, Solu-Medrol, Singulair. Lovenox for DVT prophylaxis. No new labs today. Objective - Vital Signs Vital signs: Vital Signs Temp 98.2 F 12/13/23 07:00 Pulse 88 12/13/23 12:09 Resp 16 12/13/23 07:00 BP 152/75 12/13/23 07:00 Pulse Ox 95 12/13/23 07:00 FiO2 Intake & Output 12/12/23 12/13/23 12/13/23 18:59 06:59 18:59 Intake Total 714 480 Balance 714 480 Intake: Oral 714 480 Other: # Voids 5 2 - Exam GENERAL EXAM: Alert, obese 58-year-old female, on room air, sitting up in bed, comfortable in no apparent distress. HEAD: Normocephalic. EYES: Normal reaction of pupils, equal size. NOSE: Clear with pink turbinates. THROAT: No erythema or exudates. NECK: No masses, no JVD. CHEST: No chest wall deformity. LUNGS: Equal air entry with faint end expiratory wheeze. CVS: S1 and S2 normal with no audible murmur, regular rhythm. ABDOMEN: No hepatosplenomegaly, normal bowel sounds, no guarding or rigidity. SPINE: No scoliosis or deformity SKIN: No rashes CENTRAL NERVOUS SYSTEM: No focal deficits, tone is normal in all 4 extremities. EXTREMITIES: There is no peripheral edema. No clubbing, no cyanosis. Peripheral pulses are intact. - Labs CBC & Chem 7: 12/12/23 08:07 12/12/23 08:07 Assessment and Plan Assessment: Acute exacerbation of mild chronic intermittent asthma complicated by purulent tracheobronchitis. No evidence of pneumonia. Procalcitonin 0.04 Hypertension Hyperlipidemia History of depression Tobacco dependence Obesity with a BMI of 43.6 kg/m Hypothyroidism Plan: The patient was seen and evaluated Medications reviewed Stable and on room air Cleared for discharge Complete a prednisone taper Continue Symbicort and albuterol as needed Educated regarding complete smoking cessation Follow-up in our office in 1 week This patient was seen independently by the pulmonary nurse practitioner addressing pulmonary issues I have personally seen and examined the patient, performed the documentation and the assessment and plan as written. Number of minutes spent on the visit: 24.
== END 2023-12-13 14:00 | disposition home or self-care (01) ==
LOC: EC 14:38 → 6NMEDSUR 19:09
PROVIDERS: ADMIT Student in an Organized Health Care Education/Training Program; ATTEND Student in an Organized Health Care Education/Training Program
DX: J45.901 Unspecified asthma with (acute) exacerbation (principal); D72.829 Elevated white blood cell count, unspecified; E87.20 Acidosis, unspecified; E87.6 Hypokalemia; E03.9 Hypothyroidism, unspecified; I10 Essential (primary) hypertension
CPT/HCPCS: 96376 ×3; 96361 ×2; 96365; 96366 ×2; 96372 ×2; 96375; 96367; 99285; 94640 ×8; 93005; 85379; 83880; 80053; 80048; 83605 ×2; 83735; 84484; 85025; 85027; 85610; 85730; 84145; 87636; 71046; G0378 ×4; J2930 ×3; J0696; J1650 ×2; J1885 ×3; J7512 ×2

== ENCOUNTER → 2023-12-15 | Outpatient (CLI) | payer MEDICAID ==
--- NOTE | 2023-12-15 13:23 | CT ---
EXAMINATION TYPE: CT angio chest DATE OF EXAM: 12/15/2023 COMPARISON: none HISTORY: SOB, hemoptysis CT DLP: 1396 mGycm CONTRAST: CTA thoracic aorta with 3-D reconstruction is performed and with IV Contrast, patient injected with 1 00 mL of Isovue 370. Contrast CTA of the thoracic aorta was performed from the lung apex through the upper abdomen. 3D re construction imaging obtained at a separate workstation. CT Chest: THORACIC AORTA: No evidence for thoracic aortic aneurysm. Mild atheromatous changes seen. There is n o evidence for dissection or periaortic collection. LUNGS: New Right upper l lobe masslike area medially measuring 3.3 x 2.3 cm requires further evaluati on for neoplasm with PET/CT. Basilar linear atelectasis. No additional nodules or masses. MEDIASTINUM: No evidence for mediastinal hematoma. The heart is not enlarged. No evidence for med iastinal mass or adenopathy. HILAR STRUCTURES: No evidence for mass. No hilar adenopathy is appreciated. OTHER: No significant abnormality. IMPRESSION- 1. New Right upper l lobe masslike area medially measuring 3.3 x 2.3 cm requires further evaluation t o exclude neoplasm neoplasm with PET/CT.
[2023-12-15 13:25] LABS: Basophils # (A) 0.1 k/uL (0-0.2); Basophils % (A) 0 %; Eosinophils # (A) 0.1 k/uL (0-0.7); Eosinophils % (A) 0 %; HCT 42.9 % (34.0-46.0); HGB 13.5 gm/dL (11.4-16.0); Lymphocytes # (A) 4.7 k/uL (1.0-4.8); Lymphocytes % (A) 34 %; MCH 29.5 pg (25.0-35.0); MCHC 31.5 g/dL (31.0-37.0); MCV 93.5 fL (80.0-100.0); Mean Platelet Volume 7.4; Monocytes % (A) 7 %; Neutrophils # (A) 7.7 k/uL (1.3-7.7); Neutrophils % (A) 56 %; Platelet Count 325 k/uL (150-450); RBC 4.59 m/uL (3.80-5.40); RDW 13.4 % (11.5-15.5); WBC 13.8 k/uL (3.8-10.6)
[2023-12-15 13:42] LABS: ALT 39 U/L (4-34); AST 20 U/L (14-36); African American GFR (CKD) 70 (>60 ml/min/1.73 sqM); Albumin 3.3 g/dL (3.5-5.0); Albumin/Globulin Ratio 1.2; Alkaline Phosphatase 74 U/L (38-126); Anion Gap 2 mmol/L; Blood Urea Nitrogen 30 mg/dL (7-17); Calcium 8.3 mg/dL (8.4-10.2); Carbon Dioxide 28 mmol/L (22-30); Chloride 108 mmol/L (98-107); Globulin 2.7 g/dL; Glucose 85 mg/dL (74-99); Non-African American GFR(CKD) 61 (>60 ml/min/1.73 sqM); Potassium 3.7 mmol/L (3.5-5.1); Sodium 138 mmol/L (137-145); Total Bilirubin 0.3 mg/dL (0.2-1.3)
[2023-12-15 13:51] LABS: NT-Pro-B-Type Natriuretic Pept 798 pg/mL
== END | disposition home or self-care (01) ==
LOC: RADCTMAIN 12:29
PROVIDERS: ATTEND Family Medicine
DX: I25.10 Atherosclerotic heart disease of native coronary artery without angina pectoris (principal); R04.2 Hemoptysis
CPT/HCPCS: 82552; 83880; 80053; 84484; 85025; 82550; 71275; 36415; Q9967

== ENCOUNTER → 2023-12-24 | Outpatient (CLI) | payer MEDICAID ==
--- NOTE | 2023-12-25 20:11 | PE ---
EXAMINATION TYPE: PET CT fusion skull to thigh DATE OF EXAM: 12/24/2023 CLINICAL INDICATION:Female, 58 years old with history of SPN R91.8; TECHNIQUE: Following the intravenous administration of 13.28 mCi of F-18 FDG, whole body images are performed from the skull base to the midthigh. Images are reviewed on the computer in the coronal, axial, and sagittal planes. Reconstructed rotating images are created on independent workstation and reviewed on the computer. A non-contrast CT is performed in conjunction with the PET scan. Glucose level 85 mg/dL CT DLP: 1093 mGycm, Automated exposure control for dose reduction was used. COMPARISON: CT 08/02/2019, 12/15/2023, PET/CT None, FINDINGS: Mediastinal SUV mean is 2.3. Hepatic parenchyma SUV mean is 3.3. SKULL BASE AND NECK: No suspicious radiotracer activity. CHEST, MEDIASTINUM, AND HILAR REGION: No suspicious radiotracer activity. Masslike consolidation within the right middle lobe is no longer visualized. ABDOMEN AND PELVIS: No suspicious radiotracer activity. MUSCULOSKELETAL STRUCTURES: No suspicious radiotracer activity. OTHER CT: The gallbladder surgically absent. Scattered colonic diverticula. IMPRESSION: No suspicious radiotracer activity. Area of concern in the right middle lobe is no longer visualized and was likely atelectasis.
== END | disposition home or self-care (01) ==
LOC: RADPETMAIN 06:24
PROVIDERS: ATTEND Family Medicine
DX: R91.8 Other nonspecific abnormal finding of lung field (principal)
CPT/HCPCS: 78815; A9552

== ENCOUNTER → 2024-02-24 | Outpatient (CLI) | payer MEDICAID ==
--- NOTE | 2024-02-29 12:10 | MM ---
Reason for Exam: Screening (asymptomatic). Last mammogram was performed 2 year(s) and 1 month(s) ago. Patient History: Menarche at age 14. Patient has no children. Left ovary removed at age 38. Postmenopausal. 09/20/2007, Excisional Biopsy on the Right side. Maternal aunt had breast cancer. Risk Values: Lily 5 year model risk: 1.6%. NCI Lifetime model risk: 10.4%. Prior Study Comparison: 02/11/2017 Right Diagnostic Mammogram, [facility]. 03/29/2018 Bilateral Screening Mammogram, [facility]. 02/03/2022 Bilateral MG 3D screening mammo w/cad, [facility]. Tissue Density: There are scattered areas of fibroglandular density. Findings: Analyzed By CAD. Right breast: There is no suspicious group of microcalcifications or new suspicious mass. Left breast: There is no suspicious group of microcalcifications or new suspicious mass. Overall Assessment: Negative, BI-RAD 1 Management: Screening Mammogram of both breasts in [address] [facility] will attempt to contact patient to return for supplemental views and ultrasound if indicated. Patient should continue monthly self-breast exams. A clinical breast exam by your physician is recommended on an annual basis. This exam should not preclude additional follow-up of suspicious palpable abnormalities. Note on Lily scores and lifetime risk: 1. A Lily score greater than 3% is considered moderate risk. If this is the case, consider specialist referral to assess eligibility for a risk reducing agent. 2. If overall lifetime risk for the development of breast cancer is 20% or higher, the patient may qualify for future screening with alternating mammogram and breast MRI. Electronically signed and approved by: Trung Lentz DO
== END | disposition home or self-care (01) ==
LOC: RADMAMWWP 15:03
PROVIDERS: ATTEND Family Medicine
DX: Z12.31 Encounter for screening mammogram for malignant neoplasm of breast (principal); Z80.3 Family history of malignant neoplasm of breast; Z78.0 Asymptomatic menopausal state
CPT/HCPCS: 77063; 77067

== ENCOUNTER → 2024-03-10 | Day surgery (SDC) | payer MEDICAID ==
[~2024-03-10] MED LIST changes: -ALBUTEROL NEB (CONC) 2.5 MG/0.5 ML INHALATION ONE; -LACTATED RINGERS 1,000 ML IV ONE; -LIDOCAINE 1% INJ 10MG/ML (20 ML MDV) ONE; -LIDOCAINE 2% (PF) 20 MG/ML 5 ML VIAL INHALATION ONE; -LIDOCAINE VISCOUS 300 MG/15 ML CUP MUCOUS MEM ONE; -SODIUM CHLORIDE 0.9% 1,000 ML IV SCH; -methylPREDNISolone SOD SUCCI 125 MG/2 ML VIAL IV ONE
[2024-03-10 14:11] VITALS: TEMP 97.6
[2024-03-10] MEDS: IV FLUID CONTINUATION 1,000 ML IV ONE (14:12)
[2024-03-10] MEDS: LACTATED RINGERS 1,000 ML IV SCH (14:14)
[2024-03-10] MEDS: fentaNYL (PF) 50 MCG/ML 2 ML AMP IVP PRN (14:18)
--- NOTE | 2024-03-10 15:00 | P.PCN ---
Date of Procedure: 03/10/24 Procedure(s) Performed: BRIEF HISTORY: Patient is a 58-year-old pleasant white female scheduled for an elective colonoscopy as a part of screening for colon cancer and family history of colon cancer. Her mother was diagnosed with colon cancer at age 80. PROCEDURE PERFORMED: Colonoscopy with biopsy PREOPERATIVE DIAGNOSIS: Screening for colon cancer and family history of colon cancer. IV sedation per Anesthesia. PROCEDURE: After informed consent was obtained, the patient, was brought into the endoscopy unit. IV sedation was administered by Anesthesia under continuous monitoring. Digital rectal examination was normal. Initially the Olympus CF-160 flexible video colonoscope was then inserted in the rectum, gradually advanced into the cecum without any difficulty. Careful examination was performed as the scope was gradually being withdrawn. Ileocecal valve and the appendiceal orifice were visualized and appeared normal. Prep was excellent. Mucosa of the cecum, ascending colon, transverse colon, descending colon, sigmoid colon, and rectum appeared normal. In the rectum there was a 3 mm polyp that was removed by cold biopsy. Scattered sigmoid diverticulosis seen. Retroflexion was performed in the rectum and no lesions were seen. The patient tolerated the procedure well. IMPRESSION: 3 mm rectal polyp status post cold biopsy. Scattered sigmoid diverticulosis RECOMMENDATIONS: Findings of this examination were discussed with the patient as well as her family. She was advised to follow-up with the biopsy results. Advised to have a repeat colonoscopy in 5 years because of the family history of colon cancer..
[2024-03-10 15:25] VITALS: BP 105/69; PULSE 73; RESP 20
== END ==
LOC: ORWHC2ENDO 13:05
PROVIDERS: ATTEND Internal Medicine Gastroenterology
DX: Z12.11 Encounter for screening for malignant neoplasm of colon (principal); K57.30 Diverticulosis of large intestine without perforation or abscess without bleeding; K62.1 Rectal polyp; I47.19 Other supraventricular tachycardia; I10 Essential (primary) hypertension; E78.5 Hyperlipidemia, unspecified; E07.9 Disorder of thyroid, unspecified; K21.9 Gastro-esophageal reflux disease without esophagitis; J45.909 Unspecified asthma, uncomplicated; Z80.0 Family history of malignant neoplasm of digestive organs; Z79.51 Long term (current) use of inhaled steroids; Z79.899 Other long term (current) drug therapy; Z79.890 Hormone replacement therapy; Z90.49 Acquired absence of other specified parts of digestive tract
CPT/HCPCS: 88305; 45380; J3010; J2704

== ENCOUNTER → 2024-04-06 | Outpatient (CLI) | payer MEDICAID ==
--- NOTE | 2024-04-06 13:45 | XR ---
EXAMINATION TYPE: XR Hip LT and AP Pelvis DATE OF EXAM: 04/06/2024 COMPARISON: NONE HISTORY: Pain TECHNIQUE: A single AP view of the pelvis is obtained. Two views of the left hip are obtained. FINDINGS: There is no acute fracture/dislocation evident in the pelvis. The mild bilateral hip arth ropathy. Sclerotic density overlying the right femoral neck likely related to bone island. Osteitis p ubis symphysis dens and SI joint arthropathy on the left. The overlying soft tissue appears unremarka ble. Two views of left hip show no acute fracture or dislocation. No focal lytic or sclerotic lesion seen in the proximal left femur. The overlying soft tissue is unremarkable. IMPRESSION: 1. Mild bilateral hip arthropathy. 2. Mild left SI joint arthropathy.
== END | disposition home or self-care (01) ==
LOC: RADXRMAIN 13:25
PROVIDERS: ATTEND Family Medicine
DX: M12.852 Other specific arthropathies, not elsewhere classified, left hip (principal)
CPT/HCPCS: 73502

== ENCOUNTER → 2024-06-06 | Outpatient (CLI) | payer MEDICAID ==
[2024-06-06 13:08] LABS: INR 0.9 (<1.2); Partial Thromboplastin Time 24.2 sec (22.0-30.0); Prothrombin Time 9.9 sec (10.0-12.5)
[2024-06-06 16:40] LABS: HCT 42.9 % (37.2-46.3); HGB 13.8 g/dL (12.0-15.0); MCH 28.9 pg (27.0-32.0); MCHC 32.2 g/dL (32.0-37.0); MCV 89.7 FL (80.0-97.0); Mean Platelet Volume 10.6 FL (9.5-12.2); NRBC Per 100 WBC 0 X 10*3/uL (0.00-0.01); Platelet Count 298 X 10*3/uL (140-440); RBC 4.78 X 10*6/uL (4.10-5.20); RDW 13.9 % (11.5-14.5); WBC 6.19 X 10*3/uL (4.50-10.00)
[2024-06-06 16:42] LABS: ALT 28 U/L (8-44); AST 23 U/L (13-35); Alkaline Phosphatase 95 U/L (41-126); BUN/Creat Ratio 16.75 Ratio (12.00-20.00); Blood Urea Nitrogen 13.4 mg/dL (9.0-27.0); Calcium 8.8 mg/dL (8.7-10.3); Carbon Dioxide 21.6 mmol/L (21.6-31.8); Chloride 108 mmol/L (96-109); Globulin 2.1 g/dL (1.6-3.3); Glucose 76 mg/dL (70-110); Potassium 4.7 mmol/L (3.5-5.5); Sodium 139 mmol/L (135-145); Total Bilirubin <0.2 mg/dL (0.3-1.2); Total Protein 6.1 g/dL (6.2-8.2)
== END | disposition home or self-care (01) ==
LOC: LABPAT 11:13
PROVIDERS: ATTEND Orthopaedic Surgery
DX: Z01.812 Encounter for preprocedural laboratory examination (principal); E03.9 Hypothyroidism, unspecified; M16.12 Unilateral primary osteoarthritis, left hip; Z22.322 Carrier or suspected carrier of Methicillin resistant Staphylococcus aureus
CPT/HCPCS: 80053; 83036; 85027; 85610; 85730; 86850; 86900; 86901; 87070

== ENCOUNTER 2024-06-16 08:38 | Day surgery (SDC) | payer MEDICAID ==
[2024-06-09 12:12] VITALS: BMI 42.9
[~2024-06-16 08:38] MED LIST changes: -PROPOFOL 10 MG/ML 20 ML VIAL IV ONE; +TRANEXAMIC 1,000 MG/100ML-NACL 1,000 MG in SALINE 1 100ML.BAG IV PRN; +TRANEXAMIC 1,000 MG/100ML-NACL 1,000 MG in SALINE 1 100ML.BAG IVPB PRN
[2024-06-16] MEDS: IV FLUID CONTINUATION 1,000 ML IV ONE (09:07)
[2024-06-16] MEDS: DEXAMETHASONE SOD PHOSPHATE 10 MG/ML 1 ML VIAL IV PRN (09:39)
[2024-06-16] MEDS: KETOROLAC 15 MG/ML 1 ML VIAL IVP PRN (09:39)
[2024-06-16] MEDS: ONDANSETRON 4 MG/2 ML VIAL IVP PRN (09:40)
[2024-06-16] MEDS: ACETAMINOPHEN TAB 500 MG TAB PO PRN (09:40)
[2024-06-16] MEDS: oxyCODONE ER 10 MG TAB.ER.12H PO PRN (09:40)
[2024-06-16] MEDS: FAMOTIDINE 20 MG/2 ML VIAL IVP PRN (09:40)
[2024-06-16] MEDS: LACTATED RINGERS 1,000 ML IV SCH (09:41)
[2024-06-16] MEDS: DOCUSATE 100 MG CAP PO PRN (09:41)
[2024-06-16] MEDS: MIDAZOLAM 2 MG/2 ML VIAL IV PRN (10:12)
[2024-06-16] MEDS ORDERED: DEXAMETHASONE SOD PHOSPHATE 4 MG/ML 1 ML VIAL ONE (10:25)
[2024-06-16] MEDS ORDERED: NEOSTIGMINE 1 MG/ML 10 ML VIAL ONE (10:25)
[2024-06-16] MEDS ORDERED: SUCCINYLCHOLINE CHLORIDE 200 MG/10 ML VIAL IV ONE (10:25)
[2024-06-16] MEDS ORDERED: LIDOCAINE 1% INJ 10MG/ML (20 ML MDV) ONE (10:25)
[2024-06-16] MEDS ORDERED: PROPOFOL 10 MG/ML 20 ML VIAL IV ONE (10:25)
[2024-06-16] MEDS ORDERED: ROCURONIUM 10 MG/ML (5 ML VIAL) IV ONE (10:25)
[2024-06-16] MEDS ORDERED: ePHEDrine 50 MG/ML 1 ML VIAL ONE (10:25)
[2024-06-16] MEDS ORDERED: ROPIVACAINE 5 MG/ML 30 ML VIAL ONE (10:25)
[2024-06-16] MEDS ORDERED: PHENYLEPHRINE-0.9% NACL SYG 1,000 MCG/10 ML SYRINGE ONE (10:25)
[2024-06-16] MEDS ORDERED: MIDAZOLAM 2 MG/2 ML VIAL ONE (10:25)
[2024-06-16] MEDS ORDERED: GLYCOPYRROLATE 0.2 MG/ML 2 ML VIAL ONE (10:25)
[2024-06-16] MEDS ORDERED: fentaNYL (PF) 50 MCG/ML 2 ML AMP ONE (10:25)
[2024-06-16] MEDS: ceFAZolin 3 GM in SODIUM CHLORIDE 0.9% 100 ML IVPB PRN (10:30)
--- NOTE | 2024-06-16 11:01 | P.ANPRN ---
Procedure Note - Anesthesia - Nerve Block Performed Left Navid Single Time Out Performed: Yes Date of Procedure: 06/16/24 Procedure Start Time: 10:11 Procedure Stop Time: 10:19 Location of Patient: PreOp Indication: Acute Post-Operative Pain, Requested by Surgeon Sedation Type: Sedate with meaningful contact maintained Preparation: Sterile Prep, Sterile Dressing Position: Supine Catheter: None Needle Types: Facet Needle Gauge: 20 Ultrasound used to visualize needle placement: Yes Ultrasound used to observe medication spread: Yes Injectate: 0.5% Ropivacaine (see comment for volume) (30 ml + decadron 4 mg) Blood Aspirated: No Pain Paresthesia on Injection Noted: No Resistance on Injection: Normal Image Stored and Saved: Yes Events: Uneventful and Well Tolerated
[2024-06-16] MEDS: ROPIVACAINE/EPI/CLONIDINE/KET 50 ML SYRINGE MISCELLANE PRN (11:06)
[2024-06-16] MEDS: LACTATED RINGERS 1,000 ML IV ONE (11:47)
--- NOTE | 2024-06-16 12:12 | P.OP ---
Date of Procedure: 06/16/24 Preoperative Diagnosis: 1. Severe left hip osteoarthritis 2. BMI 43 Postoperative Diagnosis: Same Procedure(s) Performed: Left direct anterior total hip arthroplasty Implants: 1. Marilynn Trident II Acetabular Cup, Size #50 2. Marilynn Insignia Size # 4 Femoral Stem, High Offset 3. Biolox delta femoral head, 36 mm, -5mm neck Anesthesia: GETA, regional Surgeon: Jose Juan Beltran [employer] Consultant #1: Marlon Marin Estimated Blood Loss (ml): 400 IV fluids (ml): 900 Pathology: none sent Condition: stable Disposition: PACU Indications for Procedure: The patient is a very pleasant 59-year-old female who I been seeing in my office for the last several months with severe left hip pain. She had x-rays which showed moderate arthritis and an MRI which confirmed moderate to severe arthritic changes in her left hip. She had exquisite pain with any attempts at passive range of motion of her hip. We discussed a diagnostic hip injection versus a total hip replacement. Due to the amount of pain that she was having and her MRI findings she requested proceeding with a total hip replacement. I had a long discussion with the patient in the office on the potential risks and complications of an elective total hip replacement through a direct anterior approach. Risks discussed include, but are certainly not limited to, risks from anesthesia, superficial infection requiring local wound care or antibiotics, deep renetta-prosthetic joint infection and the treatment required to eradicate infection, intraoperative fracture, postoperative periprosthetic fracture, damage to local blood vessels or nerves particularly the lateral femoral cutaneous nerve, delayed wound healing requiring local wound care or possibly surgical debridement, hip dislocation, leg length discrepancy, soft tissue irritation around the total hip implant such as iliopsoas tendinitis or trochanteric bursitis, wear and osteolysis from the implants, squeaking or audible noises, groin pain, thigh pain, heterotopic ossification, stiffness, aseptic loosening of the implants, dissatisfaction with surgical outcome, need for revision surgery, DVT, PE, swelling of the operative extremity, acute coronary event, stroke, failure to thrive, and possibly loss of life or limb. The patient understands that while these are the most common complications after an elective hip replacement there are certainly other less common complications possible. They were given ample time to ask questions regarding the potential complications of a hip replacement. Following our discussion the patient provided their verbal and written consent to go forward with an elective total hip replacement. Operative Findings: There was a large clear hip effusion and severe degenerative changes of both the femoral head and acetabulum consistent with severe hip osteoarthritis. Description of Procedure: The patient was identified in the preoperative holding area and the correct hip was marked with my initials. I reviewed the procedure and consent with the patient. All of their questions were answered. The patient was then brought back into the operating room by anesthesia. While on the [facility] anesthesia was administered by the anesthesia team. Preoperative antibiotics and tranexamic acid were also given. After the patient was under anesthesia I examined their ankles to determine their preoperative leg length discrepancy. The skin over the anterior aspect of the hip was shaved to remove hair over the site of planned incision. Both feet and ankles were padded with webril and boots for the [place] were applied. The patient was then carefully transferred onto the [place] table. A perineal post was immediately placed. The arms were placed on arm holders and were well-padded. Both boots were secured to the spars on the [place] table. The patient was positioned so that the pelvis was centered over the post. Nonsterile drapes were applied. A timeout was performed identifying the correct patient, operative extremity, and procedure. At this point fluoroscopy was brought in to take preoperative images of the pelvis and operative hip. Using the standing AP pelvis from the office as a template, a comparable image was obtained with fluoroscopy. A metallic bar was used to create a bi-ischial line for use as a reference to leg length adjustments during the procedure. Global offset was also measured on both the operative and nonoperative leg. Fluoroscopy was then brought out and a pre-scrub using a chlorhexidine scrub brush was performed. The operative limb was then prepped and draped in the standard sterile fashion. An anterior longitudinal incision was made lateral and distal to the ASIS. The skin and subcutaneous tissues were incised sharply. The underlying tensor fa scia was identified and incised in its midportion. The fascia was dissected free from the underlying muscle and the muscle belly was retracted. A blunt tipped cobra retractor was placed over the superior neck under the muscle fibers of the gluteus minimus. The deep enveloping fascia of the tensor was incised. The anterior leash of vessels were then identified and cauterized. The fascia between the rectus and the capsule was then incised and the pre-capsular fat was excised. A second Cobra was placed inferior to the neck. The interval between the rectus and iliocapsularis and the hip capsule was developed and a retractor was placed carefully over the anterior rim of the acetabulum. A T-shaped anterior capsulotomy was performed. The superior capsular leaflet was left in place in the inferior capsular flap was excised. The Cobra retractors were placed intracapsularly. We then made a femoral neck osteotomy according to preoperative and intraoperative templating and confirmed the level of the osteotomy using fluoroscopic imaging. The femoral head was removed, passed off to the back table, and sized. The superior capsular flap was excised. Retractors were placed circumferentially exposing the acetabulum. We then circumferentially debrided the acetabulum free of labrum and osteophytes. The pulvinar was removed to fully visualize the cotyloid fossa. We then sequentiall y reamed to achieve peripheral fit and excellent bleeding subchondral bone. The socket was thoroughly irrigated. The acetabular component was impacted into the appropriate position using fluoroscopy to guide version, inclination, and depth of insertion taking care to have a comparable image of the AP pelvis to the standing image taken in the office. An excellent press-fit was achieved and final position was confirmed using fluoroscopy. The press fit was augmented with bony cancellus dome screws. The liner was then impacted into the socket. Attention was then turned to the femur. The remnant dorsal lateral capsule was excised. The short external rotators were visible and protected. A bone hook was used to confirm appropriate translation of the trochanter away from the acetabulum. The leg was then extended and adducted and the bone hook was used to elevate the femur for broaching. A box osteotome and blunt tipped canal sound was then utilized to gain access to the femoral canal. We then sequentially broached the femur in appropriate anteversion until excellent torsional stability was achieved. The neck cut was brought flush to the trial broach with a calcar planar. A trial neck and head were then placed onto the broach and the hip was atraumatically reduced under direct visualization. External rotation to 90 was performed to assess stability. Fluoroscopy was brought in. An AP and lateral fluoroscopic image of the proximal femur was obtained to assess position and fill of the trial broach. An AP of the pelvis was then obtained and matched to the preoperative image taken. A bi-ischial bar was then placed and measurements were taken to assess changes in length and offset. The hip was then carefully dislocated, the proximal femur was exposed, and the trial implants were removed. The wound and proximal femur was thoroughly irrigated using sterile saline and pulsatile lavage. The final femoral implant was dispensed and gently tapped into place generating an excellent press-fit. The trunnion was cleansed and the final head was tapped into place to engage the Mojica taper. The acetabulum was irrigated and visualized to be free of debris. The hip was carefully reduced. Stability was checked clinically with external rotation to 90 and there was no evidence of instability. Final fluoroscopic images were taken. The wound was then thoroughly irrigated and soaked with a dilute Betadine rinse for 3 minutes. 3 L of sterile saline was irrigated through the wound using pulsatile lavage. Local anesthetic cocktail was injected into the soft tissues around the surgical field. The wound was then closed in layers. A sterile dressing was placed over the surgical incision. The drapes were taken down and the patient was carefully transferred off of the [place] table. Following removal of the boots the leg lengths felt acceptable. The patient was then taken to recovery room having tolerated the procedure well. Marlon Marin PA-C was required as a skilled seed laboratory assistant due to the complexity of surgery for patient positioning, draping, exposure, retraction, closure of wound and application of dressing. PLAN: The patient can weight-bear as tolerated on the operative extremity. DVT prophylaxis with aspirin 81 mg twice a day based on preoperative risk stratification. Physical therapy for gait training. Leave surgical dressing in place. Internal medicine for perioperative medical management.
[2024-06-16] MEDS ORDERED: ONDANSETRON 4 MG/2 ML VIAL IVP PRN (12:32)
[2024-06-16] MEDS ORDERED: MAGNESIUM HYDROXIDE 2,400 MG/30 ML CUP PO PRN (12:32)
[2024-06-16] MEDS ORDERED: MORPHINE SULFATE 2 MG/ML SYRINGE IVP PRN ×2 (12:32)
[2024-06-16] MEDS ORDERED: hydrOXYzine pamoate 25 MG CAP PO PRN (12:32)
[2024-06-16] MEDS ORDERED: MORPHINE SULFATE 4 MG/ML SYRINGE IV PRN (12:32)
[2024-06-16] MEDS ORDERED: NALOXONE 0.4 MG/ML 1 ML VIAL IV PRN (12:32)
--- NOTE | 2024-06-16 12:35 | FL ---
EXAMINATION TYPE: FL guidance operating room, XR Hip Limited LT DATE OF EXAM: 06/16/2024 12:07 PM COMPARISON: Pre Operative Images if available both CT/MRI or plain film CLINICAL INDICATION: Female, 59 years old with history of M16.12 LEFT HIP OSETOARTHRITIS; TECHNIQUE: FL guidance operating room, XR Hip Limited LT, multiple fluoroscopic images provided for p rocedure. Total fluoroscopy time: 28.9 seconds Total submitted images to PACS: 8 DAP: 1.6618 mGym2 Gycm2 uGym2 cGycm2 or equivalent. FINDINGS: Fluoroscopic images during internal fixation/arthroplasty demonstrate fixation hardware in appropriat e position. Hardware appears intact. No immediate complication identified. IMPRESSION: 1. No evidence for intraoperative complication. 2. Please see the operative/procedural note for further details. [facility], , 06/16/2024 12:32 PM
[2024-06-16] MEDS: fentaNYL (PF) 50 MCG/ML 2 ML AMP IV PRN (12:44)
[2024-06-16] MEDS: SODIUM CHLORIDE 0.9% 1,000 ML IV SCH (14:37)
[2024-06-16] MEDS ORDERED: IPRATROPIUM-ALBUTEROL 3 ML NEB INHALATION PRN (16:06)
[2024-06-16] MEDS ORDERED: ALBUTEROL NEBULIZED 2.5 MG/3 ML INHALATION PRN (16:06)
[2024-06-16] MEDS ORDERED: NITROGLYCERIN SL TABS 0.4 MG TAB SUBLINGUAL PRN (16:06)
[2024-06-16] MEDS: ceFAZolin 3 GM in SODIUM CHLORIDE 0.9% 100 ML IVPB SCH (17:38)
--- NOTE | 2024-06-16 18:11 | P.CONS ---
History of Present Illness - Reason for Consult Consult date: 06/16/24 Medical Management Requesting physician: Jose Juan Beltran - History of Present Illness History of Presenting Illness: Patient is a very pleasant 59-year-old female with a past medical history of hypertension, hyperlipidemia, hypothyroidism, asthma/COPD, osteoarthritis. She is currently admitted under orthopedic surgery team status post elective left total hip arthroplasty. Surgical procedure was completed by Dr. Beltran secondary to severe left hip osteoarthritis. We were consulted for medical management throughout hospitalization. Patient seen and fully evaluated in room 474 shortly after completion of surgical procedure. She currently reports experiencing only minimal postoperative pain to left hip and denies having any numbness/tingling in her legs. She denies having any postoperative nausea or vomiting, tolerating oral intake with dinner. She denies having any chest pain, palpitations, shortness of breath, cough or congestion, or experiencing any dizziness/lightheadedness or headache. Patient reports she has not yet urinated and postoperative period, but also states she has not yet gotten out of bed. Review of systems: Pertinent positives and negatives as discussed in HPI, a complete review of systems was performed and all other systems are negative. Physical exam: Vital signs reviewed and stable. General: Nontoxic, no distress and appears stated age. Derm: Skin warm and dry, normal coloration for ethnicity. Head: Atraumatic, normocephalic and symmetric. Eyes: EOM's intact, no lid lag, and anicteric sclera Mouth: no lip lesions, mucus membranes moist Cardiovascular: regular rate and rhythm with normal S1S2, no murmur, positive posterior tibial pulses bilaterally, and cap refill < 2 seconds. Lungs: Respirations even, regular, and unlabored on room air. Lungs CTA bilaterally, no rhonchi, no rales, no wheezing, and no accessory muscle usage. Abdominal: soft, nontender to palpation, no guarding, no appreciable organomegaly Ext: ROM intact. No gross muscle atrophy, no edema, no contractures Neuro: Speech clear, face symmetrical and CN II-XII grossly intact with no noted focal neuro deficits Psych: Alert and oriented to person, place, time, and situation. Appropriate and pleasant affect. Assessment and Plan of Care: Status post left total hip arthroplasty Management per primary admitting orthopedic surgery team including DVT prophylaxis, pain management, wound/dressing management, weightbearing, and PT/OT. Currently DVT prophylaxis with aspirin 325 mg twice daily. Asthma/COPD with mild postoperative hypoxia SpO2 89% on room air, patient placed on 2 L O2 increasing SpO2 to 97%. Continue oxygenation as needed to maintain SpO2 equal to or greater than 90% and wean as patient tolerates. Continue Symbicort 80-4.5 mcg inhaler 2 puffs twice daily, Singulair 10 mg nightly, Claritin 10 mg nightly and DuoNebs every 4 hours as needed for shortness of breath and/or wheezing. Encourage use of incentive spirometry 10-15 times hourly while awake to preven t postoperative atelectasis and development of pneumonia. Hypertension Continue isosorbide mononitrate 30 mg daily and losartan 50 mg nightly and Monitor vital signs. Hyperlipidemia Continue rosuvastatin 10 mg nightly. Depression Continue Prozac 20 mg nightly. Data reviewed Reviewed operative report Reviewed preoperative vitals completed 06/06/2024 showing WBC count of 6.19, hemoglobin of 13.8, platelet count of 298. Coagulation profile normal findings with the exception of low PTT of 9.9. BMP unremarkable with sodium 139, potassium 4.7, chloride 108, bicarb 21.6, and anion gap of 9.40 with BUN of 13.4 and creatinine of 0.8 with GFR greater than 60. Vital signs reviewed and stable. Blood pressure 102/71, heart rate 79, respiratory rate 17, temp 97.6 F, and SpO2 89% on room air 97% on 2 L. Thank you for allowing us to participate in the care of this pleasant patient. Do not hesitate to contact us with questions. Someone can be reached from the [facility] hospitalist group all hours of the day at [phone] or via perfect serve. Patient was seen independently by Nurse Practitioner. This document was prepared using [employer] dictation software. Please allow for errors in molder machine while rare they do occur. I reviewed the documentation as provided by the LIZZY above, who is the original author of this note. I agree with the documented assessment and plan, with the following changes: none Past Medical History Past Medical History: Asthma, Chest Pain / Angina, GERD/Reflux, Hyperlipidemia, Hypertension, Pneumonia, Thyroid Disorder Additional Past Medical History / Comment(s): states has had "choking feeling" recent diagnosed with benign thyroid nodules, NECK PAIN, spurs on C Spine, MIGRAINES, OCCASIONAL SVT- STATES HX OF 2ND DEGREE HEART BLOCK WHEN HER BLOOD PRESSURE GOES LOW. SHORTNESS OF BREATH WITH EXERTION , HIATAL HERNIA , LT CATARACT History of Any Multi-Drug Resistant Organisms: None Reported Past Surgical History: Breast Surgery, Cholecystectomy, Heart Catheterization, Orthopedic Surgery, Tonsillectomy Additional Past Surgical History / Comment(s): thyroid nodule bx, LEFT OVARY & TUBE REMOVED 2000. Multiple laparoscopy is for endometriosis, HEART CATH (2013). Colonoscopy . Left lower arm bone reduction surgery,D & C. , RT CATARACT REMOVED WITH LENS IMPLANT Past Anesthesia/Blood Transfusion Reactions: Previous Problems w/ Anesthesia Additional Past Anesthesia/Blood Transfusion Reaction / Comm: STATES severe projectile vomiting WITH DILAUDID. STATES HX OF SVT AND 2ND DEGREE HEART BLOCK WHEN BP DROPS LOW. Smoking Status: Former smoker - Past Family History Mother Family Medical History: Cancer Additional Family Medical History / Comment(s): OF COLON RECTAL CANCER. 2 maternal aunts had breast cancer. Both grandmothers had an DE. Father Family Medical History: Cancer, Congestive Heart Failure (CHF), COPD Additional Family Medical History / Comment(s): SKIN CANCER Brother(s) Family Medical History: Cancer Additional Family Medical History / Comment(s): TUMOR AROUND JUGULAR WITH METS. Another brother had an DE. 2ND BROTHER WITH CANCER Medications and Allergies Home Medications Medication Instructions Recorded Confirmed Type FLUoxetine HCL [PROzac] 20 mg PO HS 10/17/17 06/16/24 History Montelukast Sodium [Singulair] 10 mg PO HS 01/07/21 06/16/24 History Losartan [Cozaar] 50 mg PO HS 05/11/23 06/16/24 History Nitroglycerin Sl Tabs [Nitrostat] 0.4 mg SL Q5M PRN 05/11/23 06/16/24 History Isosorbide Mononitrate ER [Imdur] 30 mg PO DAILY 06/08/23 06/16/24 History Rosuvastatin [Crestor] 10 mg PO HS 06/08/23 06/16/24 History Albuterol Sulfate [Proventil Hfa] 2 puff INHALATION RT-Q4H PRN 12/10/23 06/16/24 History Cetirizine HCl [Zyrtec] 10 mg PO HS 12/10/23 06/16/24 History Ipratropium-Albuterol Nebulize 3 ml INHALATION RT-Q4H PRN 12/10/23 06/16/24 History [Duoneb 0.5 mg-3 mg/3 ml Soln] Fluticasone Propion/Salmeterol 1 inhalation PO BID 03/09/24 06/16/24 History [Advair 250-50 Diskus] Semaglutide/Vitamin B12 25 units SQ SA 03/09/24 06/16/24 History Diclofenac Sodium [Voltaren] 75 mg PO BID 06/09/24 06/16/24 History HYDROcodone/APAP 5-325MG [[place] 1 tab PO Q6HR PRN 06/09/24 06/16/24 History 5-325] Aspirin 81 mg PO BID #60 tab 06/16/24 Rx Celecoxib [CeleBREX] 200 mg PO DAILY PRN #30 cap 06/16/24 Rx Docusate [Colace] 100 mg PO BID #60 capsule 06/16/24 Rx HYDROcodone/APAP 5-325MG [[place] 5] 1 - 2 each PO Q6HR PRN #48 tab 06/16/24 Rx Omeprazole 20 mg PO DAILY #30 tab 06/16/24 Rx Ondansetron [Zofran] 4 mg PO Q6HR PRN #30 tab 06/16/24 Rx Allergies Allergy/AdvReac Type Severity Reaction Status Date / Time hydromorphone [From Dilaudid] Allergy Severe Verified 06/16/24 09:19 Vomiting nickel Allergy Rash/Hives Verified 06/16/24 09:19 adhesive tape AdvReac Itching, Verified 06/16/24 09:19 RED SKIN atorvastatin [From Lipitor] AdvReac Severe Verified 06/16/24 09:19 joint pain ezetimibe [From Zetia] AdvReac Severe Verified 06/16/24 09:19 joint pain Physical Exam Osteopathic Statement: *. No significant issues noted on an osteopathic structural exam other than those noted in the History and Physical/Consult. Vitals: Vital Signs Temp Pulse Resp BP Pulse Ox 06/16/24 14:41 97.6 F 79 17 102/71 89 L 06/16/24 14:00 71 14 101/56 96 06/16/24 13:45 70 14 97/52 96 06/16/24 13:30 74 14 98/52 97 06/16/24 13:15 78 16 95/54 98 06/16/24 13:00 72 16 93/51 95 06/16/24 12:45 71 14 93/54 94 L 06/16/24 12:30 97.3 F L 80 14 87/51 96 06/16/24 10:22 72 16 95/58 98 06/16/24 09:34 97 F L 71 16 108/59 96 Intake and Output 06/16/24 06/16/24 06/16/24 06:59 14:59 22:59 Intake Total 1600 Output Total 400 Balance 1200 Intake: IV 1600 Output: Estimated Blood Loss 400 Other: Weight 123 kg
[2024-06-16] MEDS: HYDROcodone/APAP 5-325MG 1 EACH TAB PO PRN (18:22)
[2024-06-16] MEDS: SYMBICORT 80-4.5 MCG INHALER INHALATION SCH (20:28)
[2024-06-16] MEDS: FLUoxetine HCL 20 MG CAP PO SCH (20:44)
[2024-06-16] MEDS: ASPIRIN 325 MG TAB PO SCH (20:44)
[2024-06-16] MEDS: MONTELUKAST 10 MG TAB PO SCH (20:44)
[2024-06-16] MEDS: LORATADINE 10 MG TAB PO SCH (20:44)
[2024-06-16] MEDS: LOSARTAN 50 MG TAB PO SCH (20:44)
[2024-06-16] MEDS: SENNOSIDES-DOCUSATE SODIUM 1 EACH TAB PO SCH (20:44)
[2024-06-16] MEDS: NON FORMULARY DRUG (Rosuvastatin 10 MG Tablet) PO SCH (20:45)
[2024-06-16] MEDS: MORPHINE SULFATE 4 MG/ML SYRINGE IV PRN (22:31)
[2024-06-17] MEDS: HYDROcodone/APAP 10-325MG 1 EACH TAB PO PRN (02:05)
--- NOTE | 2024-06-17 07:54 | P.DS ---
Providers Date of admission: 06/16/2024 Attending physician: Jose Juan Beltran Consults: 06/16/24 12:32 Consult Physician Routine Consulting Provider: Ronaldo Conde Consult Reason/Comments: post op L SHALINI medical management Do you want consulting provider notified?: Yes Primary care physician: [facility] Course: The patient is a very pleasant 59-year-old female who developed rather acute onset severe left hip arthritis. She was admitted under my care yesterday and underwent an uncomplicated total hip replacement. Following surgery she was transferred to the orthopedic floor. She was seen postoperatively by internal medicine. She received 2 doses of postoperative antibiotics. She was started on aspirin for DVT prophylaxis. I saw the patient on postoperative day #1 and she was doing well. Her dressing was intact. Femoral nerve function was intact. She was able to actively plantar flex and dorsiflex her ankle and her toes. She worked with therapy and did well. She was ultimately cleared for discharge home. Patient Condition at Discharge: Good Plan - Discharge Summary Discharge Rx Participant: No New Discharge Prescriptions: New Celecoxib [CeleBREX] 200 mg PO DAILY PRN #30 cap PRN Reason: Pain Docusate [Colace] 100 mg PO BID #60 capsule HYDROcodone/APAP 5-325MG [[place] 5] 1 - 2 each PO Q6HR PRN #48 tab PRN Reason: Pain Omeprazole 20 mg PO DAILY #30 tab Ondansetron [Zofran] 4 mg PO Q6HR PRN #30 tab PRN Reason: Nausea Aspirin 81 mg PO BID #60 tab No Action FLUoxetine HCL [PROzac] 20 mg PO HS Montelukast Sodium [Singulair] 10 mg PO HS Nitroglycerin Sl Tabs [Nitrostat] 0.4 mg SL Q5M PRN PRN Reason: Chest Pain Cetirizine HCl [Zyrtec] 10 mg PO HS Ipratropium-Albuterol Nebulize [Duoneb 0.5 mg-3 mg/3 ml Soln] 3 ml INHALATION RT-Q4H PRN PRN Reason: Shortness Of Breath Fluticasone Propion/Salmeterol [Advair 250-50 Diskus] 1 inhalation PO BID Semaglutide/Vitamin B12 25 units SQ SA HYDROcodone/APAP 5-325MG [[place] 5-325] 1 tab PO Q6HR PRN PRN Reason: Pain Losartan [Cozaar] 50 mg PO HS Isosorbide Mononitrate ER [Imdur] 30 mg PO DAILY Rosuvastatin [Crestor] 10 mg PO HS Albuterol Sulfate [Proventil Hfa] 2 puff INHALATION RT-Q4H PRN PRN Reason: Shortness Of Breath Diclofenac Sodium [Voltaren] 75 mg PO BID Discharge Medication List FLUoxetine HCL [PROzac] 20 mg PO HS 10/17/17 [History] Montelukast Sodium [Singulair] 10 mg PO HS 01/07/21 [History] Losartan [Cozaar] 50 mg PO HS 05/11/23 [History] Nitroglycerin Sl Tabs [Nitrostat] 0.4 mg SL Q5M PRN 05/11/23 [History] Isosorbide Mononitrate ER [Imdur] 30 mg PO DAILY 06/08/23 [History] Rosuvastatin [Crestor] 10 mg PO HS 06/08/23 [History] Albuterol Sulfate [Proventil Hfa] 2 puff INHALATION RT-Q4H PRN 12/10/23 [History] Cetirizine HCl [Zyrtec] 10 mg PO HS 12/10/23 [History] Ipratropium-Albuterol Nebulize [Duoneb 0.5 mg-3 mg/3 ml Soln] 3 ml INHALATION RT-Q4H PRN 12/10/23 [History] Fluticasone Propion/Salmeterol [Advair 250-50 Diskus] 1 inhalation PO BID [History] Semaglutide/Vitamin B12 25 units SQ SA 03/09/24 [History] Diclofenac Sodium [Voltaren] 75 mg PO BID 06/09/24 [History] HYDROcodone/APAP 5-325MG [[place] 5-325] 1 tab PO Q6HR PRN 06/09/24 [History] Aspirin 81 mg PO BID #60 tab 06/16/24 [Rx] Celecoxib [CeleBREX] 200 mg PO DAILY PRN #30 cap 06/16/24 [Rx] Docusate [Colace] 100 mg PO BID #60 capsule 06/16/24 [Rx] HYDROcodone/APAP 5-325MG [[place] 5] 1 - 2 each PO Q6HR PRN #48 tab 06/16/24 [Rx] Omeprazole 20 mg PO DAILY #30 tab 06/16/24 [Rx] Ondansetron [Zofran] 4 mg PO Q6HR PRN #30 tab 06/16/24 [Rx] Follow up Appointment(s)/Referral(s): Jose Juan Beltran MD [Medical Doctor] - 2 Weeks Activity/Diet/Wound Care/Special Instructions: 1. Weight-bear as tolerated on your operative extremity unless instructed otherwise. Use a walker or other assistive device to ambulate. 2. Leave surgical dressing in place. If your dressing becomes saturated with blood, there is drainage, or the dressing becomes loose please contact the office. 3. It is okay to shower with your surgical dressing, but do not submerge in water (no hot tubs, bath's, swimming etc.) 4. Take your blood clot prevention medication as prescribed (aspirin, Eliquis, Xarelto, and Plavix are commonly prescribed medications for blood clot prevention) 5. While taking [place] or Percocet for pain take a stool softener (Ex: Colace) and drink lots of water. 6. Keep all follow-up appointments as scheduled. You will usually be seen in 1-2 weeks following surgery. 7. Please contact the office with any questions or concerns [phone] Discharge Disposition: HOME WITH HOME HEALTH SERVICES
[2024-06-17] MEDS: FAMOTIDINE 20 MG TAB PO SCH (08:30)
[2024-06-17] MEDS: ISOSORBIDE MONONITRATE ER 30 MG TAB.ER.24H PO SCH (08:30)
[2024-06-17 10:00] LABS: Blood Urea Nitrogen 16.4 mg/dL (9.0-27.0); Calcium 8.1 mg/dL (8.7-10.3); Carbon Dioxide 21.3 mmol/L (21.6-31.8); Chloride 105 mmol/L (96-109); Glucose 131 mg/dL (70-110); Magnesium 1.9 mg/dL (1.5-2.4); Potassium 4.7 mmol/L (3.5-5.5); Sodium 140 mmol/L (135-145)
[2024-06-17 10:03] LABS: Basophils # (A) 0.02 X 10*3/uL (0.00-0.10); Basophils % (A) 0.1 %; Eosinophils # (A) 0 X 10*3/uL (0.04-0.35); Eosinophils % (A) 0 %; HCT 33.5 % (37.2-46.3); HGB 10.5 g/dL (12.0-15.0); Lymphocytes # (A) 1.16 X 10*3/uL (0.90-5.00); Lymphocytes % (A) 6.7 %; MCH 29.2 pg (27.0-32.0); MCHC 31.3 g/dL (32.0-37.0); MCV 93.1 FL (80.0-97.0); Mean Platelet Volume 9.8 FL (9.5-12.2); Monocytes # (A) 0.91 X 10*3/uL (0.20-1.00); Monocytes % (A) 5.3 %; NRBC Per 100 WBC 0 X 10*3/uL (0.00-0.01); Neutrophils # (A) 15.03 X 10*3/uL (1.80-7.70); Neutrophils % (A) 87.5 %; Platelet Count 326 X 10*3/uL (140-440); RDW 14.7 % (11.5-14.5); WBC 17.19 X 10*3/uL (4.50-10.00)
--- NOTE | 2024-06-17 12:17 | P.PN ---
Subjective Progress Note Date: 06/17/24 Hospital Course: Patient is a very pleasant 59-year-old female with a past medical history of hypertension, hyperlipidemia, hypothyroidism, asthma/COPD, osteoarthritis. She is currently admitted under orthopedic surgery team status post elective left total hip arthroplasty. Surgical procedure was completed by Dr. Beltran secondary to severe left hip osteoarthritis. We were consulted for medical management throughout hospitalization. Physical exam: Patient seen and fully evaluated at bedside this morning. She reports feeling great and ready to go home. She states pain is controlled at this time on current pain medication regimen. She is tolerating regular diet and denies having any nausea or vomiting, denies chest pain or palpitations, denies shortness of breath, cough, congestion, or any other complaints at this time. Vital signs reviewed and stable. General: Nontoxic, no distress and appears stated age. Derm: Skin warm and dry, normal coloration for ethnicity. Head: Atraumatic, normocephalic and symmetric. Eyes: EOM's intact, no lid lag, and anicteric sclera Mouth: no lip lesions, mucus membranes moist Cardiovascular: regular rate and rhythm with normal S1S2, no murmur, positive posterior tibial pulses bilaterally, and cap refill < 2 seconds. Lungs: Respirations even, regular, and unlabored on room air. Lungs CTA bilaterally, no rhonchi, no rales, no wheezing, and no accessory muscle usage. Abdominal: soft, nontender to palpation, no guarding, no appreciable organomegaly Ext: ROM intact. No gross muscle atrophy, no edema, no contractures Neuro: Speech clear, face symmetrical and CN II-XII grossly intact with no noted focal neuro deficits Psych: Alert and oriented to person, place, time, and situation. Appropriate and pleasant affect. Assessment and Plan of Care: Status post left total hip arthroplasty. Management per primary admitting orthopedic surgery team including DVT prophylaxis, pain management, wound/dressing management, weightbearing, and PT/OT. Currently DVT prophylaxis with aspirin 325 mg twice daily. Asthma/COPD with mild postoperative hypoxia Postoperative hypoxia has resolved and patient oxygen completely and was wean ed off of currently 96% on room air. Continue Symbicort 80-4.5 mcg inhaler 2 puffs twice daily, Singulair 10 mg nightly, Claritin 10 mg nightly and DuoNebs every 4 hours as needed for shortness of breath and/or wheezing. Encourage use of incentive spirometry 10-15 times hourly while awake to pre vent postoperative atelectasis and development of pneumonia. Acute postoperative blood loss anemia Stable and expected finding with preoperative hemoglobin of 13.8 and postoperative hemoglobin of 10.5. Patient having no signs of active bleeding at this time, no need for transfusion or further interventions. Leukocytosis WBC count 17.19, no signs of infection suspect leukocytosis to be reactive secondary to surgical procedure. Hypertension Continue isosorbide mononitrate 30 mg daily and losartan 50 mg nightly and Monitor vital signs. Hyperlipidemia Continue rosuvastatin 10 mg nightly. Depression Continue Prozac 20 mg nightly. Data reviewed Postoperative labs reviewed. CBC showing leukocytosis with WBC count of 17.19 and acute postoperative blood loss anemia with preoperative hemoglobin of 13.8 and postoperative hemoglobin of 10.5. BMP showing mild anion gap metabolic acidosis with chloride of 105, bicarb 21.3, and anion gap of 13.7. Blood glucose 131. Magnesium normal findings at 1.9. Vital signs reviewed and stable. Blood pressure 120/78, heart rate 80, respiratory rate 17, temp 98.9 F, and SpO2 of 96% on room air. Patient is medically optimized and stable from medical perspective for discharge once cleared by primary admitting orthopedic surgery team. Thank you for allowing us to participate in the care of this pleasant patient. Do not hesitate to contact us with questions. Someone can be reached from the [facility] hospitalist group all hours of the day at [phone] or via perfect serve. Patient was seen independently by Nurse Practitioner. This document was prepared using [employer] dictation software. Please allow for errors in dish carrier while rare they do occur. I reviewed the documentation as provided by the LIZZY above, who is the original author of this note. I agree with the documented assessment and plan, with the following changes: none Objective - Vital Signs Vital signs: Vital Signs Temp 98.3 F 06/17/24 00:58 Pulse 79 06/17/24 00:58 Resp 14 06/17/24 03:38 BP 109/66 06/17/24 00:58 Pulse Ox 92 L 06/17/24 00:58 FiO2 Intake & Output 06/16/24 06/17/24 06/17/24 18:59 06:59 18:59 Intake Total 1600 Output Total 400 Balance 1200 Weight 123 kg Intake: IV 1600 Output: Estimated Blood Loss 400 Other: Voiding Method Toilet # Voids 1 1 - Labs CBC & Chem 7: 06/17/24 04:58 06/17/24 04:58
[2024-06-17 14:41] VITALS: BP 107/69; PULSE 80; RESP 16; TEMP 98.3
== END 2024-06-17 14:53 | disposition home health service (06) ==
LOC: OR 08:38 → 4SSUR 12:20 → OR 06-17 14:53
PROVIDERS: ATTEND Orthopaedic Surgery
DX: M16.12 Unilateral primary osteoarthritis, left hip
CPT/HCPCS: 64447; 73501; 80048; 83735; 85025; 94640; 94760